=== PATIENT | male | born 1960 | race African-American/Black ===

== ENCOUNTER 2017-05-18 12:45 | Inpatient (IN) | payer OTHER ==
[2017-05-18 14:35] VITALS: BMI 21.6
--- NOTE | 2017-05-18 19:39 | HP ---
CIWA Score - CIWA Score Nausea/Vomitin-Int. Nausea w/Dry Heave Muscle Tremors: 2 Anxiety: 3 Agitation: 0-Normal Activity Paroxysmal Sweats: 3 Orientation: 0-Oriented Tacttile Disturbances: 0-None Auditory Disturbances: 0-None Visual Disturbances: 3-Moderate Sensitivity Headache: 3-Moderate CIWA-Ar Total Score: 18 Admission ROS S - [facility] Chief Complaint: "I don't feel well, I've been throwing up, I am here for detox from heroin, alcohol, cocaine. " Allergies/Adverse Reactions: Allergies Allergy/AdvReac Type Severity Reaction Status Date / Time lactose AdvReac Intermediate Vomiting Verified 05/18/17 19:10 History of Present Illness: 56 yo male with hx alcohol, cocaine, and heroin dependence is here for detox. PMHX: BPH, denies any other medical problems. Denies any past psychiatric history. Last detox [facility] 2010. Longest period of sobriety 3 years. Denies suicidal / homicidal ideation or suicide attempts . Exam Limitations: No Limitations - Ebola screening Have you traveled outside of the country in the last 21 days: No (N) Have you had contact with anyone from an Ebola affected area: No Have you been sick,other than usual withdrawal symptoms: No Do you have a fever: No - Review of Systems Constitutional: Chills, Loss of Appetite, Unintentional Wgt. Loss (20 lbs in the last three months) EENT: reports: No Symptoms Reported Respiratory: reports: No Symptoms reported Cardiac: reports: No Symptoms Reported GI: reports: Nausea, Poor Appetite, Poor Fluid Intake, Vomiting : reports: Frequency Musculoskeletal: reports: Joint Pain (reports was tx for broken left arm two months ago, reports on going shoulder pain and arm pain) Integumentary: reports: No Symptoms Reported Neuro: reports: No Symptoms reported Endocrine: reports: No Symptoms Reported Hematology: reports: No Symptoms Reported Psychiatric: reports: Orientated x3, Depressed Other Systems: Reviewed and Negative Patient History - Patient Medical History Hx Anemia: No Hx Asthma: No Hx Chronic Obstructive Pulmonary Disease (COPD): No Hx Cancer: No Hx Cardiac Disorders: No Hx Congestive Heart Failure: No Hx Hypertension: No Hx Hypercholesterolemia: No Hx Pacemaker: No HX Cerebrovascular Accident: No Hx Seizures: No Hx Dementia: No Hx Diabetes: No Hx Gastrointestinal Disorders: No Hx Liver Disease: No Hx Genitourinary Disorders: No Hx Sexually Transmitted Disorders: No Hx Renal Disease (ESRD): No Hx Thyroid Disease: No Hx Human Immunodeficiency Virus (HIV): No (last tested three weeks ago, negtive ) Hx Hepatitis C: No Hx Depression: No Hx Suicide Attempt: No Hx Bipolar Disorder: No Hx Schizophrenia: No - Patient Surgical History Past Surgical History: No Hx Neurologic Surgery: No Hx Cataract Extraction: No Hx Cardiac Surgery: No Hx Lung Surgery: No Hx Breast Surgery: No Hx Breast Biopsy: No Hx Abdominal Surgery: No Hx Appendectomy: No Hx Cholecystectomy: No Hx Genitourinary Surgery: No Hx Section: No Hx Orthopedic Surgery: No Anesthesia Reaction: No - PPD History Previous Implant?: Yes Documented Results: Negative w/o proof PPD to be Administered?: Yes - Reproductive History Patient is a Female of Child Bearing Age (11 -55 yrs old): No - Smoking Cessation Smoking history: Current every day smoker Aproximately how many cigarettes per day: 10 Hx Chewing Tobacco Use: No Initiated information on smoking cessation: Yes 'Breaking Loose' booklet given: 05/18/17 - Substance & Tx. History Hx Alcohol Use: Yes Substance Use Type: Alcohol, Cocaine, Heroin Hx Substance Use Treatment: Yes ([facility], 2011) - Substances Abused Alcohol Route: Oral Frequency: Daily Amount used: liquor- 4 pints, beer- 2 six packs Age of first use: 18 Date of Last Use: 05/18/17 Cocaine Route: Inhalation Frequency: Daily Amount used: $200 Age of first use: 24 Date of Last Use: 05/18/17 Heroin Route: Inhalation Frequency: 3-6 times per week Amount used: 1 -2 BAGS Age of first use: 24 Date of Last Use: 05/15/17 Family Disease History - Family Disease History Family Disease History: Other: Father (, homocide ), Mother (alive and well ) Admission Physical Exam [facility]HS - Vital Signs Vital Signs: Vital Signs - 24 hr 05/18/17 14:28 Temperature 97 F L Pulse Rate 74 Respiratory 20 Rate Blood Pressure 137/70 - Physical General Appearance: Yes: Disheveled, Mild Distress, Thin, Irritable, Sweating, Anxious HEENTM: Yes: Hearing grossly Normal, Normal ENT Inspection, Normocephalic, Normal Voice, OLIVERIO, Pharynx Normal, Tm's normal, Other (dry mucous membranes) Respiratory: Yes: Chest Non-Tender, Lungs Clear, Normal Breath Sounds, No Respiratory Distress, No Accessory Muscle Use Neck: Yes: No masses,lesions,Nodules, Trachea in good position Breast: Yes: Breast Exam Deferred Cardiology: Yes: Regular Rhythm, Regular Rate, S1, S2 Abdominal: Yes: Normal Bowel Sounds, Non Tender, Flat, Soft Genitourinary: Yes: Within Normal Limits Back: Yes: Normal Inspection Musculoskeletal: Yes: full range of Motion, Gait Steady, Pelvis Stable Extremities: Yes: Normal Capillary Refill, Normal Inspection, Normal Range of Motion, Non-Tender Neurological: Yes: traffic sergeant II-XII NML intact, Fully Oriented, Alert, Motor Strength 5/5, Normal Response, Depressed Affect Integumentary: Yes: Normal Color, Dry, Warm, Other (poor skin turgor) Lymphatic: Yes: Within Normal Limits - Diagnostic (1) Cocaine dependence Current Visit: Yes Status: Acute (2) Weight loss Current Visit: Yes Status: Acute (3) Alcohol dependence with withdrawal Current Visit: Yes Status: Acute (4) Heroin dependence Current Visit: Yes Status: Acute (5) Dehydration Current Visit: Yes Status: Acute (6) BPH (benign prostatic hyperplasia) Current Visit: Yes Status: Acute (7) Difficulty sleeping Current Visit: Yes Status: Acute Cleared for Admission [facility] - Detox or Rehab [facility] Level of Care: Medically Managed Detox Regimen/Protocol: Librium [facility] Breath Alcohol Content Breath Alcohol Content: 0 Urine Drug Screen - Results Drug Screen Negative: No Urine Drug Screen Results: RAMIRO-Cocaine
[2017-05-18] MEDS ORDERED: ACETAMINOPHEN 325 MG TABLET (FP) PO PRN (19:52)
[2017-05-18] MEDS ORDERED: guaiFENesin/D-METHORPHAN HB 10 ML UNIT-DOSE CUPS PO PRN (19:52)
[2017-05-18] MEDS ORDERED: IBUPROFEN 400 MG TABLET (FP) PO PRN (19:52)
[2017-05-18] MEDS ORDERED: chlordiazePOXIDE HCL 25 MG CAPSULE PO ONE (19:52)
[2017-05-18] MEDS ORDERED: MAGNESIUM CITRATE 300 ML BOTTLE PO PRN (19:52)
[2017-05-18] MEDS ORDERED: chlordiazePOXIDE HCL 25 MG CAPSULE PO PRN (19:52)
[2017-05-18] MEDS ORDERED: MAG HYDROX/AL HYDROX/SIMETH 30 ML UNIT-DOSE CUP PO PRN (19:52)
[2017-05-18] MEDS ORDERED: MAGNESIUM HYDROX 2400MG/30ML ORAL SUSPENSION 30 ML CUP PO PRN (19:52)
[2017-05-18] MEDS ORDERED: hydrOXYzine PAMOATE 50 MG CAPSULE (FP) PO PRN (19:52)
[2017-05-18] MEDS ORDERED: LOPERAMIDE HCL 2 MG CAPSULE PO PRN (19:52)
[2017-05-18] MEDS ORDERED: MENTHOL/PHENOL 1 EACH UD MM PRN (19:52)
[2017-05-18] MEDS ORDERED: P-EPHED 60MG/TRIPROLIDI 2.5MG TABLET PO PRN (19:52)
[2017-05-18] MEDS: chlordiazePOXIDE HCL 25 MG CAPSULE PO SCH (22:20)
[2017-05-18] MEDS: THIAMINE HCL 100 MG TABLET (FP) PO SCH (22:20)
[2017-05-18] MEDS: IBUPROFEN 600 MG TABLET (FP) PO PRN (22:20)
[2017-05-18 23:44] LABS: URINE APPEARANCE CLEAR; URINE BILIRUBIN NEGATIVE (NEGATIVE); URINE BLOOD 1+ (NEGATIVE); URINE COLOR YELLOW; URINE GLUCOSE (UA) NEGATIVE (NEGATIVE); URINE KETONE NEGATIVE (NEGATIVE); URINE LEUK ESTERASE NEGATIVE (NEGATIVE); URINE NITRITE NEGATIVE (NEGATIVE); URINE PROTEIN NEGATIVE (NEGATIVE)
[2017-05-18 23:49] LABS: EPI CELLS RARE /HPF (FEW); URINE BACTERIA RARE /hpf (NONE SEEN); URINE MUCUS RARE
[2017-05-19] MEDS: chlordiazePOXIDE HCL 25 MG CAPSULE PO SCH ×4 (05:34→22:09)
[2017-05-19 09:54] LABS: HEMATOCRIT 36.1 % (35.4-49); HEMOGLOBIN 11.9 GM/dL (11.7-16.9); MCH 30.3 pg (25.7-33.7); MCHC 32.8 g/dl (32.0-35.9); MEAN CELL VOLUME 92.2 fl (80-96); MEAN PLT VOLUME 7.7 fl (7.5-11.1); PLATELET COUNT 271 K/MM3 (134-434); RBC 3.92 M/mm3 (4.00-5.60); RDW 14.4 % (11.9-15.9); WHITE BLOOD COUNT 4.7 K/mm3 (4.0-10.0)
[2017-05-19] MEDS: PRENATAL VITAMINS W/ FOLIC ACID TABLET (FP) PO SCH (10:17)
[2017-05-19] MEDS: DOXAZOSIN MESYLATE 4 MG TABLET PO SCH (10:17)
[2017-05-19 10:33] LABS: CHLORIDE 106 mmol/L (98-107); SODIUM 142 mmol/L (136-145)
--- NOTE | 2017-05-19 10:33 | PN ---
[facility] CIWA - CIWA Score Nausea/Vomitin-No Nausea/No Vomiting Muscle Tremors: 4-Moderate,w/Arms Extend Anxiety: 4-Mod. Anxious/Guarded Agitation: 4-Moderately Restless Paroxysmal Sweats: 1-Minimal Palms Moist Orientation: 0-Oriented Tacttile Disturbances: 3-Moderate Itch/Numb/Burn Auditory Disturbances: 0-None Visual Disturbances: 0-None Headache: 0-None Present CIWA-Ar Total Score: 16 BHS Progress Note (SOAP) Subjective: ANXIETY,SWEATS,TREMORS,INTERMITTENT SLEEP. Objective: 05/19/17 10:31 Vital Signs Temperature 97.1 F L 05/19/17 09:24 Pulse Rate 69 05/19/17 09:24 Respiratory Rate 18 05/19/17 09:24 Blood Pressure 113/78 05/19/17 09:24 O2 Sat by Pulse Oximetry (%) Laboratory Last Values WBC 4.7 K/mm3 (4.0-10.0) 05/19/17 07:30 RBC 3.92 M/mm3 (4.00-5.60) L 05/19/17 07:30 Hgb 11.9 GM/dL (11.7-16.9) 05/19/17 07:30 Hct 36.1 % (35.4-49) 05/19/17 07:30 MCV 92.2 fl (80-96) 05/19/17 07:30 MCH 30.3 pg (25.7-33.7) 05/19/17 07:30 MCHC 32.8 g/dl (32.0-35.9) 05/19/17 07:30 RDW 14.4 % (11.9-15.9) 05/19/17 07:30 Plt Count 271 K/MM3 (134-434) 05/19/17 07:30 MPV 7.7 fl (7.5-11.1) 05/19/17 07:30 Urine Color Yellow 05/18/17 20:21 Urine Appearance Clear 05/18/17 20:21 Urine pH 6.0 (5.0-8.0) 05/18/17 20:21 Ur Specific [place] 1.015 (1.001-1.035) 05/18/17 20:21 Urine Protein Negative (NEGATIVE) 05/18/17 20:21 Urine Glucose (UA) Negative (NEGATIVE) 05/18/17 20:21 Urine Ketones Negative (NEGATIVE) 05/18/17 20:21 Urine Blood 1+ (NEGATIVE) H 05/18/17 20:21 Urine Nitrite Negative (NEGATIVE) 05/18/17 20:21 Urine Bilirubin Negative (NEGATIVE) 05/18/17 20:21 Urine Urobilinogen 2.0 mg/dL (0.2-1.0) 05/18/17 20:21 Ur Leukocyte Esterase Negative (NEGATIVE) 05/18/17 20:21 Urine WBC (Auto) 1 /hpf (3-5) 05/18/17 20:21 Urine RBC (Auto) 3 /hpf (0-3) 05/18/17 20:21 Ur Epithelial Cells Rare /HPF (FEW) 05/18/17 20:21 Urine Bacteria Rare /hpf (NONE SEEN) 05/18/17 20:21 Urine Mucus Rare 05/18/17 20:21 Assessment: 05/19/17 10:32 WITHDRAWAL SX Plan: CONTINUE DETOX
[2017-05-19 10:39] LABS: ALBUMIN 3.5 g/dl (3.4-5.0); ALK PHOS 45 U/L (45-117); ANION GAP 4 (8-16); BILIRUBIN,TOTAL 0.3 mg/dL (0.2-1.0); BLOOD UREA NITROGEN 8 mg/dL (7-18); CALCIUM 8.1 mg/dL (8.5-10.1); CO2 32 mmol/L (21-32); GLUCOSE,RANDOM 80 mg/dL (74-106); SGOT/AST 36 U/L (15-37); SGPT/ALT 42 U/L (12-78); TOT PROT 6.4 g/dl (6.4-8.2)
--- NOTE | 2017-05-19 10:52 | CONSULT ---
[facility] Psychiatric Consult - Data Date of interview: 05/19/17 Admission source: [facility] Identifying data: Readmission to [facility] for this 56 y/o AA male seeking detox treatment on for alcohol,heroin and cocaine dependence.Patient is in a common-law relationship,father of one,homeless (group home),unemployed and supported on Public Assistance. Substance Abuse History: Confirmed by the patient.Mr Cruz admits to continuous use of crack,alcohol and sporadic exposure to heroin.See details in current [facility] report.Smoking history: Current every day smoker. Aproximately how many cigarettes per day: 10. Hx Chewing Tobacco Use: No. Initiated information on smoking cessation: Yes. 'Breaking Loose' booklet given: . - Substance & Tx. History. Hx Alcohol Use: Yes. Substance Use Type: Alcohol, Cocaine, Heroin. Hx Substance Use Treatment: Yes ([facility], 2011). - Substances Abused. Alcohol. Route: Oral. Frequency: Daily. Amount used: liquor- 4 pints, beer- 2 six packs. Age of first use: 18. Date of Last Use: . Cocaine. Route: Inhalation. Frequency: Daily. Amount used: $200. Age of first use: 24. Date of Last Use: 05/18/17. Heroin. Route: Inhalation. Frequency: 3-6 times per week. Amount used: 1 -2 BAGS. Age of first use: 24. Date of Last Use: 05/15/17 Medical History: Benign prostatic hypertrophy and chronic shoulder pain (left). Psychiatric History: Patient reports a history of one psychiatric hospitalization in 2010.Mr Cruz endorses the diagnosis of Schizophrenia.Prescribed risperdal and cogentin (doses not recalled).Patient states that he gets his psychiatric OPD care at the [facility] in [facility].Also reports sub-optimal adherence to medications and clinic appointments.Last took risperdal two weeks ago (self-report).Patient denies history of suicide attempts. Physical/Sexual Abuse/Trauma History: Patient denies. Additional Comment: Urine Drug Screen Results: RAMIRO-Cocaine.Noted. Mental Status Exam - Mental Status Exam Alert and Oriented to: Time, Place, Person Cognitive Function: Good Patient Appearance: Disheveled Mood: Withdrawn, Hopeful Affect: Appropriate, Normal Range Patient Behavior: Fatigued, Cooperative Speech Pattern: Clear, Appropriate Voice Loudness: Normal Thought Process: Intact, Goal Oriented Thought Disorder: Not Present Hallucinations: Denies Suicidal Ideation: Denies Homicidal Ideation: Denies Insight/Judgement: Poor Sleep: Poorly, Difficulty falling asleep (requests ambien) Appetite: Good Muscle strength/Tone: Normal Gait/Station: Normal Psychiatric Findings - Problem List ([place] 1, 2,3) (1) Schizophrenia Status: Chronic Comment: Self-report.On medications (confirmed at [facility] # [id number]) .Patient is affiliated with [facility] for psychiatric OPD care. (2) Alcohol dependence Status: Acute (3) Cocaine dependence Status: Acute Qualifiers: (4) Nicotine dependence Status: Acute Qualifiers: (5) Insomnia Status: Acute - Initial Treatment Plan Initial Treatment Plan: Psychoeducation.Sleep hygiene.Detoxification treatment in progress.Ambien 5 mg po hs prn + risperdal 2 mg po bid + cogentin 1 mg po bid.Side effects/benefits are discussed with the patient : dystonias,dyskinesias ,galactorrhea,gynecomastia,sexual impotence (risperdal),dry mouth,blurred vision ,urinary hesitancy,constipation (cogentin) and parasomnias (ambien).Mr Cruz gave his consent (verbal) for this careplan + his authorization ( verbal) to contact his pharmacist at [facility] # [id number].Contact made with pharmacist at [phone] : refills for risperdal 2 mg po bid + cogentin 1 mg po bid were picked up on 05/14/17.Patient is a reliable historian.NO scripts required at discharge from [address] [place] [address].Daily monitoring of clinical course.
--- NOTE | 2017-05-19 11:02 | EKG ---
Test Reason : Blood Pressure : / mmHG Vent. Rate : 063 BPM Atrial Rate : 063 BPM P-R Int : 152 ms QRS Dur : 078 ms QT Int : 436 ms P-R-T Axes : 070 069 050 degrees QTc Int : 446 ms NORMAL SINUS RHYTHM NONSPECIFIC ST ABNORMALITY ABNORMAL ECG NO PREVIOUS ECGS AVAILABLE Confirmed by EFRAÍN VALENTIN MD ([id number]) on 05/19/2017 11:01:41 AM Referred By: Confirmed By:EFRAÍN VALENTIN MD
[2017-05-19] MEDS ORDERED: NICOTINE POLACRILEX 2 MG GUM BUC PRN (17:29)
[2017-05-19] MEDS: IBUPROFEN 600 MG TABLET (FP) PO PRN (19:25)
[2017-05-19] MEDS: THIAMINE HCL 100 MG TABLET (FP) PO SCH (22:09)
[2017-05-19] MEDS: BENZTROPINE MESYLATE 1 MG TABLET (FP) PO SCH (22:09)
[2017-05-19] MEDS: risperiDONE 2 MG TABLET PO SCH (22:10)
[2017-05-20] MEDS: chlordiazePOXIDE HCL 25 MG CAPSULE PO SCH ×3 (05:34→17:26)
[2017-05-20] MEDS: DOXAZOSIN MESYLATE 4 MG TABLET PO SCH (10:01)
[2017-05-20] MEDS: BENZTROPINE MESYLATE 1 MG TABLET (FP) PO SCH ×2 (10:02→22:16)
[2017-05-20] MEDS: PRENATAL VITAMINS W/ FOLIC ACID TABLET (FP) PO SCH (10:02)
[2017-05-20] MEDS: risperiDONE 2 MG TABLET PO SCH ×2 (10:02→22:15)
--- NOTE | 2017-05-20 10:19 | PN ---
[facility] CIWA - CIWA Score Nausea/Vomitin-No Nausea/No Vomiting Muscle Tremors: 4-Moderate,w/Arms Extend Anxiety: 4-Mod. Anxious/Guarded Agitation: 4-Moderately Restless Paroxysmal Sweats: 1-Minimal Palms Moist Orientation: 0-Oriented Tacttile Disturbances: 3-Moderate Itch/Numb/Burn Auditory Disturbances: 0-None Visual Disturbances: 0-None Headache: 0-None Present CIWA-Ar Total Score: 16 BHS Progress Note (SOAP) Subjective: ANXIETY,SWEATS/CHILLS,TREMORS,FATIGUE. Objective: 05/20/17 10:18 Vital Signs 05/20/17 05/20/17 05/20/17 03:30 06:10 09:25 Temperature 98.2 F 97.6 F Pulse Rate 86 78 Respiratory 18 18 18 Rate Blood Pressure 117/74 112/72 Laboratory Last Values WBC 4.7 K/mm3 (4.0-10.0) 05/19/17 07:30 RBC 3.92 M/mm3 (4.00-5.60) L 05/19/17 07:30 Hgb 11.9 GM/dL (11.7-16.9) 05/19/17 07:30 Hct 36.1 % (35.4-49) 05/19/17 07:30 MCV 92.2 fl (80-96) 05/19/17 07:30 MCH 30.3 pg (25.7-33.7) 05/19/17 07:30 MCHC 32.8 g/dl (32.0-35.9) 05/19/17 07:30 RDW 14.4 % (11.9-15.9) 05/19/17 07:30 Plt Count 271 K/MM3 (134-434) 05/19/17 07:30 MPV 7.7 fl (7.5-11.1) 05/19/17 07:30 Sodium 142 mmol/L (136-145) 05/19/17 07:30 Potassium 4.0 mmol/L (3.5-5.1) 05/19/17 07:30 Chloride 106 mmol/L (98-107) 05/19/17 07:30 Carbon Dioxide 32 mmol/L (21-32) 05/19/17 07:30 Anion Gap 4 (8-16) L 05/19/17 07:30 BUN 8 mg/dL (7-18) 05/19/17 07:30 Creatinine 1.0 mg/dL (0.7-1.3) 05/19/17 07:30 Creat Clearance w eGFR > 60 (>60) 05/19/17 07:30 Random Glucose 80 mg/dL (74-106) 05/19/17 07:30 Calcium 8.1 mg/dL (8.5-10.1) L 05/19/17 07:30 Total Bilirubin 0.3 mg/dL (0.2-1.0) 05/19/17 07:30 AST 36 U/L (15-37) 05/19/17 07:30 ALT 42 U/L (12-78) 05/19/17 07:30 Alkaline Phosphatase 45 U/L (45-117) 05/19/17 07:30 Total Protein 6.4 g/dl (6.4-8.2) 05/19/17 07:30 Albumin 3.5 g/dl (3.4-5.0) 05/19/17 07:30 Urine Color Yellow 05/18/17 20:21 Urine Appearance Clear 05/18/17 20:21 Urine pH 6.0 (5.0-8.0) 05/18/17 20:21 Ur Specific [place] 1.015 (1.001-1.035) 05/18/17 20:21 Urine Protein Negative (NEGATIVE) 05/18/17 20:21 Urine Glucose (UA) Negative (NEGATIVE) 05/18/17 20:21 Urine Ketones Negative (NEGATIVE) 05/18/17 20:21 Urine Blood 1+ (NEGATIVE) H 05/18/17 20:21 Urine Nitrite Negative (NEGATIVE) 05/18/17 20:21 Urine Bilirubin Negative (NEGATIVE) 05/18/17 20:21 Urine Urobilinogen 2.0 mg/dL (0.2-1.0) 05/18/17 20:21 Ur Leukocyte Esterase Negative (NEGATIVE) 05/18/17 20:21 Urine WBC (Auto) 1 /hpf (3-5) 05/18/17 20:21 Urine RBC (Auto) 3 /hpf (0-3) 05/18/17 20:21 Ur Epithelial Cells Rare /HPF (FEW) 05/18/17 20:21 Urine Bacteria Rare /hpf (NONE SEEN) 05/18/17 20:21 Urine Mucus Rare 05/18/17 20:21 RPR Titer Nonreactive (NONREACTIVE) 05/19/17 07:30 Hepatitis C Antibody <0.1 s/co ratio (0.0-0.9) 05/18/17 07:30 Assessment: 05/20/17 10:19 WITHDRAWAL SX Plan: CONTINUE DETOX
[2017-05-20] MEDS: THIAMINE HCL 100 MG TABLET (FP) PO SCH (22:15)
[2017-05-20] MEDS: chlordiazePOXIDE 5 MG CAPSULE PO SCH (22:15)
[2017-05-20] MEDS: IBUPROFEN 600 MG TABLET (FP) PO PRN (23:32)
[2017-05-21] MEDS: chlordiazePOXIDE 5 MG CAPSULE PO SCH ×3 (05:09→17:17)
[2017-05-21] MEDS: BENZTROPINE MESYLATE 1 MG TABLET (FP) PO SCH ×2 (10:11→22:25)
[2017-05-21] MEDS: risperiDONE 2 MG TABLET PO SCH ×2 (10:11→22:26)
[2017-05-21] MEDS: PRENATAL VITAMINS W/ FOLIC ACID TABLET (FP) PO SCH (10:11)
[2017-05-21] MEDS: DOXAZOSIN MESYLATE 4 MG TABLET PO SCH (10:12)
--- NOTE | 2017-05-21 11:14 | PN ---
S Progress Note (SOAP) Subjective: SLIGHT ANXIETY, FATIGUE. Objective: 05/21/17 11:13 Vital Signs 05/21/17 05/21/17 05/21/17 03:30 06:18 09:29 Temperature 98.4 F 98.3 F Pulse Rate 75 88 Respiratory 18 18 12 Rate Blood Pressure 109/63 128/71 Laboratory Last Values WBC 4.7 K/mm3 (4.0-10.0) 05/19/17 07:30 RBC 3.92 M/mm3 (4.00-5.60) L 05/19/17 07:30 Hgb 11.9 GM/dL (11.7-16.9) 05/19/17 07:30 Hct 36.1 % (35.4-49) 05/19/17 07:30 MCV 92.2 fl (80-96) 05/19/17 07:30 MCH 30.3 pg (25.7-33.7) 05/19/17 07:30 MCHC 32.8 g/dl (32.0-35.9) 05/19/17 07:30 RDW 14.4 % (11.9-15.9) 05/19/17 07:30 Plt Count 271 K/MM3 (134-434) 05/19/17 07:30 MPV 7.7 fl (7.5-11.1) 05/19/17 07:30 Sodium 142 mmol/L (136-145) 05/19/17 07:30 Potassium 4.0 mmol/L (3.5-5.1) 05/19/17 07:30 Chloride 106 mmol/L (98-107) 05/19/17 07:30 Carbon Dioxide 32 mmol/L (21-32) 05/19/17 07:30 Anion Gap 4 (8-16) L 05/19/17 07:30 BUN 8 mg/dL (7-18) 05/19/17 07:30 Creatinine 1.0 mg/dL (0.7-1.3) 05/19/17 07:30 Creat Clearance w eGFR > 60 (>60) 05/19/17 07:30 Random Glucose 80 mg/dL (74-106) 05/19/17 07:30 Calcium 8.1 mg/dL (8.5-10.1) L 05/19/17 07:30 Total Bilirubin 0.3 mg/dL (0.2-1.0) 05/19/17 07:30 AST 36 U/L (15-37) 05/19/17 07:30 ALT 42 U/L (12-78) 05/19/17 07:30 Alkaline Phosphatase 45 U/L (45-117) 05/19/17 07:30 Total Protein 6.4 g/dl (6.4-8.2) 05/19/17 07:30 Albumin 3.5 g/dl (3.4-5.0) 05/19/17 07:30 Urine Color Yellow 05/18/17 20:21 Urine Appearance Clear 05/18/17 20:21 Urine pH 6.0 (5.0-8.0) 05/18/17 20:21 Ur Specific [place] 1.015 (1.001-1.035) 05/18/17 20:21 Urine Protein Negative (NEGATIVE) 05/18/17 20:21 Urine Glucose (UA) Negative (NEGATIVE) 05/18/17 20:21 Urine Ketones Negative (NEGATIVE) 05/18/17 20:21 Urine Blood 1+ (NEGATIVE) H 05/18/17 20:21 Urine Nitrite Negative (NEGATIVE) 05/18/17 20:21 Urine Bilirubin Negative (NEGATIVE) 05/18/17 20:21 Urine Urobilinogen 2.0 mg/dL (0.2-1.0) 05/18/17 20:21 Ur Leukocyte Esterase Negative (NEGATIVE) 05/18/17 20:21 Urine WBC (Auto) 1 /hpf (3-5) 05/18/17 20:21 Urine RBC (Auto) 3 /hpf (0-3) 05/18/17 20:21 Ur Epithelial Cells Rare /HPF (FEW) 05/18/17 20:21 Urine Bacteria Rare /hpf (NONE SEEN) 05/18/17 20:21 Urine Mucus Rare 05/18/17 20:21 RPR Titer Nonreactive (NONREACTIVE) 05/19/17 07:30 Hepatitis C Antibody <0.1 s/co ratio (0.0-0.9) 05/18/17 07:30 Assessment: 05/21/17 11:14 WITHDRAWAL SX Plan: CONTINUE DETOX
[2017-05-21] MEDS: IBUPROFEN 600 MG TABLET (FP) PO PRN (18:28)
--- NOTE | 2017-05-21 19:05 | PN ---
[facility] Progress Note Note: Patient reports intermittent discomfort (dull aching quality) X last 1-2 days. Patient points to Right side of abdomen, ribcage, and lower chest as primary areas affected by discomfort. Patient denies any sternal or left-sided chest or abdominal pain. Patient denies history of any similar experience and he denies any known history of Cardiac, Stomach, Pancreas, Liver, or Gallbladder disease. Patient denies dizziness and SOB. Patient denies nausea / vomiting, sensation of heartburn, or diarrhea. Patient reports mild straining when having a bowel movement over last few days. Lung sounds auscultated clear and equal bilaterally. S1, S1 auscultated. Bowel Sounds Normoactive in all four quadrants. Abdomen soft, no tenderness upon palpation, no distension noted. Patient able to ambulate on unit unassisted and without difficulty. STAT ECG ordered, results noted. VS stable. Patient given MOM earlier and reports mild effect. Patient to be given a dose of Mylanta. Patient advised to not lie flat for 2-3 hours after eating / drinking and to notify Nursing staff immediately should discomfort become more severe or frequent at any time. Patient verbalized understanding of instructions. Will Continue to monitor. Little Mcknight NP
[2017-05-21] MEDS: chlordiazePOXIDE HCL 10 MG CAPSULE PO SCH (22:25)
[2017-05-21] MEDS: THIAMINE HCL 100 MG TABLET (FP) PO SCH (22:26)
[2017-05-22] MEDS: chlordiazePOXIDE HCL 10 MG CAPSULE PO SCH ×3 (05:17→17:31)
[2017-05-22] MEDS: risperiDONE 2 MG TABLET PO SCH ×2 (10:15→23:05)
[2017-05-22] MEDS: PRENATAL VITAMINS W/ FOLIC ACID TABLET (FP) PO SCH (10:15)
[2017-05-22] MEDS: BENZTROPINE MESYLATE 1 MG TABLET (FP) PO SCH ×2 (10:15→23:05)
[2017-05-22] MEDS: DOXAZOSIN MESYLATE 4 MG TABLET PO SCH (10:16)
--- NOTE | 2017-05-22 12:20 | EKG ---
Test Reason : Blood Pressure : / mmHG Vent. Rate : 090 BPM Atrial Rate : 090 BPM P-R Int : 146 ms QRS Dur : 066 ms QT Int : 366 ms P-R-T Axes : 061 073 037 degrees QTc Int : 447 ms NORMAL SINUS RHYTHM NONSPECIFIC ST ABNORMALITY ABNORMAL ECG WHEN COMPARED WITH ECG OF 18-MAY-2017 21:49, T WAVE INVERSION NO LONGER EVIDENT IN ANTERIOR LEADS Confirmed by WALT GRIFFITH, ALEE ([id number]) on 05/22/2017 12:20:24 PM Referred By: Confirmed By:ALEE GODOY MD
--- NOTE | 2017-05-22 14:36 | PN ---
[facility] Progress Note (SOAP) Subjective: Anxious, Interrupted Sleep. Objective: PT. A & O X 3, OBSERVED AMBULATING ON UNIT. NO ACUTE DISTRESS. PATIENT REPORTS THAT ABDOMINAL DISCOMFORT THAT HE WAS REPORTING LAST NIGHT HAS SINCE RESOLVED COMPLETELY. 05/22/17 14:34 Vital Signs Temperature 98.7 F 05/22/17 14:04 Pulse Rate 97 H 05/22/17 14:04 Respiratory Rate 18 05/22/17 14:04 Blood Pressure 98/60 05/22/17 14:04 O2 Sat by Pulse Oximetry (%) Laboratory Tests 05/18/17 05/18/17 05/19/17 07:30 20:21 07:30 WBC 4.7 RBC 3.92 L Hgb 11.9 Hct 36.1 MCV 92.2 MCH 30.3 MCHC 32.8 RDW 14.4 Plt Count 271 MPV 7.7 Sodium Potassium Chloride Carbon Dioxide Anion Gap BUN Creatinine Creat Clearance w eGFR Random Glucose Calcium Total Bilirubin AST ALT Alkaline Phosphatase Total Protein Albumin Urine Color Yellow Urine Appearance Clear Urine pH 6.0 Ur Specific [place] 1.015 Urine Protein Negative Urine Glucose (UA) Negative Urine Ketones Negative Urine Blood 1+ H Urine Nitrite Negative Urine Bilirubin Negative Urine Urobilinogen 2.0 Ur Leukocyte Esterase Negative Urine WBC (Auto) 1 Urine RBC (Auto) 3 Ur Epithelial Cells Rare Urine Bacteria Rare Urine Mucus Rare RPR Titer Hepatitis C Antibody <0.1 05/19/17 05/19/17 07:30 07:30 WBC RBC Hgb Hct MCV MCH MCHC RDW Plt Count MPV Sodium 142 Potassium 4.0 Chloride 106 Carbon Dioxide 32 Anion Gap 4 L BUN 8 Creatinine 1.0 Creat Clearance w eGFR > 60 Random Glucose 80 Calcium 8.1 L Total Bilirubin 0.3 AST 36 ALT 42 Alkaline Phosphatase 45 Total Protein 6.4 Albumin 3.5 Urine Color Urine Appearance Urine pH Ur Specific [place] Urine Protein Urine Glucose (UA) Urine Ketones Urine Blood Urine Nitrite Urine Bilirubin Urine Urobilinogen Ur Leukocyte Esterase Urine WBC (Auto) Urine RBC (Auto) Ur Epithelial Cells Urine Bacteria Urine Mucus RPR Titer Nonreactive Hepatitis C Antibody LABS NOTED. Assessment: 05/22/17 14:35 WITHDRAWAL SYMPTOMS. Plan: CONTINUE DETOX. INCREASE DAILY PO FLUID IN TAKE.
[2017-05-22] MEDS: THIAMINE HCL 100 MG TABLET (FP) PO SCH (23:05)
[2017-05-23 06:09] VITALS: BP 102/65; PULSE 85; TEMP 98
[2017-05-23] MEDS: BENZTROPINE MESYLATE 1 MG TABLET (FP) PO SCH (09:29)
[2017-05-23] MEDS: risperiDONE 2 MG TABLET PO SCH (09:30)
[2017-05-23] MEDS: PRENATAL VITAMINS W/ FOLIC ACID TABLET (FP) PO SCH (09:30)
[2017-05-23] MEDS: DOXAZOSIN MESYLATE 4 MG TABLET PO SCH (09:31)
--- NOTE | 2017-05-23 10:43 | DS ---
[facility] Detox Discharge Summary Admission Date: 05/18/17 Discharge Date: 05/23/17 - History Present History: Alcohol Dependence, Cocaine Dependence, Opioid Dependence Additional Comments: follow up with after care program as arrangement Pertinent Past History: bph - Physical Exam Results Vital Signs: Vital Signs Temperature 98 F 05/23/17 06:08 Pulse Rate 85 05/23/17 06:08 Respiratory Rate 18 05/23/17 06:08 Blood Pressure 102/65 05/23/17 06:08 O2 Sat by Pulse Oximetry (%) Pertinent Admission Physical Exam Findings: withdrawal symptom - Treatment Hospital Course: Detox Protocol Followed, Detoxed Safely, Responded well, Discharged Condition Good, Rehab Referral Accepted Patient has Accepted a Rehab Referral to: [facility] - Medication Discharge Medications: Ambulatory Orders NK [No Known Home Medication] 05/18/17 - Diagnosis (1) Alcohol dependence with withdrawal Current Visit: Yes Status: Acute Qualifiers: Complication of substance-induced condition: uncomplicated Qualified Code(s ): F10.230 - Alcohol dependence with withdrawal, uncomplicated (2) Cocaine dependence Current Visit: Yes Status: Acute Qualifiers: Substance use status: uncomplicated Qualified Code(s): F14.20 - Cocaine dependence, uncomplicated (3) Insomnia Current Visit: Yes Status: Acute (4) Nicotine dependence Current Visit: Yes Status: Acute Qualifiers: Nicotine product type: cigarettes Substance use status: uncomplicated Qualified Code(s): F17.210 - Nicotine dependence, cigarettes, uncomplicated (5) BPH (benign prostatic hyperplasia) Current Visit: Yes Status: Chronic Qualifiers: Lower urinary tract symptom presence: unspecified whether lower urinary tract symptoms present Qualified Code(s): N40.0 - Benign prostatic hyperplasia without lower urinary tract symptoms (6) Schizophrenia Current Visit: Yes Status: Chronic (7) Heroin abuse Current Visit: Yes Status: Acute - AMA Did Patient Leave Against Medical Advice: No
== END 2017-05-23 11:09 | disposition other institution (70) | DRG 773 ==
LOC: YASAS 12:45 → Y3N 19:15
PROVIDERS: ADMIT Internal Medicine; ATTEND Internal Medicine
PROC: HZ2ZZZZ Detoxification Services for Substance Abuse Treatment (ICD-10-PCS; principal; 2017-05-18)
DX: F10.230 Alcohol dependence with withdrawal, uncomplicated (principal); F14.20 Cocaine dependence, uncomplicated; F11.10 Opioid abuse, uncomplicated; F17.210 Nicotine dependence, cigarettes, uncomplicated; F25.9 Schizoaffective disorder, unspecified; F20.9 Schizophrenia, unspecified; G47.00 Insomnia, unspecified; N40.0 Benign prostatic hyperplasia without lower urinary tract symptoms; E86.0 Dehydration; R10.9 Unspecified abdominal pain; Z91.011 Allergy to milk products; Z87.898 Personal history of other specified conditions; Z59.0 Homelessness
CPT/HCPCS: 36415; 80053; 81003; 81015; 85027; 86593; 86803; 93005; 93010

== ENCOUNTER 2017-05-23 11:34 | Inpatient (IN) | payer OTHER ==
[2017-05-23] MEDS ORDERED: ACETAMINOPHEN 325 MG TABLET (FP) PO PRN (14:59)
[2017-05-23] MEDS ORDERED: MENTHOL/PHENOL 1 EACH UD MM PRN (14:59)
[2017-05-23] MEDS ORDERED: MAG HYDROX/AL HYDROX/SIMETH 30 ML UNIT-DOSE CUP PO PRN (14:59)
[2017-05-23] MEDS ORDERED: guaiFENesin/D-METHORPHAN HB 10 ML UNIT-DOSE CUPS PO PRN (14:59)
[2017-05-23] MEDS ORDERED: MAGNESIUM CITRATE 300 ML BOTTLE PO PRN (14:59)
[2017-05-23] MEDS ORDERED: hydrOXYzine PAMOATE 50 MG CAPSULE (FP) PO PRN (14:59)
[2017-05-23] MEDS ORDERED: MAGNESIUM HYDROX 2400MG/30ML ORAL SUSPENSION 30 ML CUP PO PRN (14:59)
[2017-05-23] MEDS ORDERED: LOPERAMIDE HCL 2 MG CAPSULE PO PRN (14:59)
[2017-05-23] MEDS ORDERED: P-EPHED 60MG/TRIPROLIDI 2.5MG TABLET PO PRN (14:59)
--- NOTE | 2017-05-23 14:59 | HP ---
[facility] Rehab Assess/Revision - Admission History Admitted to Rehab from: [facility] Date of Admission to Rehab: 05/23/17 - Findings Detox History & Physical reviewed: Yes Concur with findings: Yes Comments/Additional Findings: FOR REHAB PROTOCOL Inpatient Rehab Admission - Initial Determination Are CD services needed?: Yes Free of communicable disease: Yes Not in need of hospitalization: Yes - Rehab Admission Criteria Previous failed treatment: Yes Poor recovery environment: Yes Comorbidities: Yes Lacks judgement: No Patient is meeting Inpatient Rehab admission criteria:: Yes
[2017-05-23] MEDS: THIAMINE HCL 100 MG TABLET (FP) PO SCH (22:27)
[2017-05-24] MEDS: IBUPROFEN 400 MG TABLET (FP) PO PRN (04:54)
[2017-05-24] MEDS: PRENATAL VITAMINS W/ FOLIC ACID TABLET (FP) PO SCH (10:05)
[2017-05-24] MEDS: DOXAZOSIN MESYLATE 4 MG TABLET PO SCH (10:12)
[2017-05-24] MEDS ORDERED: COLLOIDAL OATMEAL 1 BAR EACH TP PRN (14:24)
--- NOTE | 2017-05-24 14:27 | PN ---
BHS Progress Note (SOAP) Subjective: c/o contact dermatitits wants to use his own soap he brought inow in security Objective: 05/24/17 14:25 Vital Signs - 24 hr 05/23/17 05/24/17 05/24/17 23:01 00:30 03:30 Temperature Pulse Rate 94 H Respiratory 16 16 Rate Blood Pressure 103/59 05/24/17 07:09 Temperature 98.5 F Pulse Rate 89 Respiratory 18 Rate Blood Pressure 107/65 labs reveiwed Assessment: 05/24/17 14:26 contat dermatitis, reviewd, las w patient, ordred aveeno soap or patietb can use hisown from downstairs if unopened
[2017-05-24] MEDS: THIAMINE HCL 100 MG TABLET (FP) PO SCH (21:28)
[2017-05-25] MEDS: IBUPROFEN 400 MG TABLET (FP) PO PRN (04:19)
[2017-05-25] MEDS: PRENATAL VITAMINS W/ FOLIC ACID TABLET (FP) PO SCH (10:22)
[2017-05-25] MEDS: DOXAZOSIN MESYLATE 4 MG TABLET PO SCH (10:22)
[2017-05-25] MEDS ORDERED: LIDOCAINE 5% TOPICAL PATCH TP ONE (11:48)
--- NOTE | 2017-05-25 11:53 | PN ---
S Progress Note (SOAP) Subjective: pain to left shoulder but manageable. I had a broken shoulder two months ago with a cast then placed. but I removed the cast so I know the shoulder never healed properly. Objective: 05/25/17 11:50 Vital Signs Temperature 98.4 F 05/25/17 06:53 Pulse Rate 80 05/25/17 10:00 Respiratory Rate 18 05/25/17 10:00 Blood Pressure 109/64 05/25/17 10:00 O2 Sat by Pulse Oximetry (%) aaox3 ambulating no acute distress Assessment: 05/25/17 11:52 pt is able to shrug shoulders, able to raise arm but unable to place arm behind his head. Plan: motrin 600mg prn tylenol 650mg prn lidocaine patch daily shoulder x-ray ordered for evaluation
[2017-05-25] MEDS: IBUPROFEN 600 MG TABLET (FP) PO PRN (12:22)
--- NOTE | 2017-05-25 14:46 | HP ---
Psychiatrist Admission - Data Date of interview: 05/25/17 Admission source: Transfer from [address] [place] [address] Identifying data: First admission to [facility] for this 56 y/o AA male seeking rehabilitation treatment for alcohol,heroin and cocaine dependence.Completed detox care on [address] [place] [address].Patient is in a common-law relationship,father of one,homeless (resides in jail),unemployed and supported on Public Assistance. Medical History: Benign prostatic hypertrophy and chronic shoulder pain (left). Psychiatric History: History of one psychiatric hospitalization (2010).Mr Cruz endorses the diagnosis of Schizophrenia.Prescribed risperdal and cogentin (doses not recalled).Patient states that he gets his psychiatric OPD care at the [facility] in [facility].Also reports sub-optimal adherence to medications and clinic appointments.Last took risperdal two weeks prior to his [facility] visit on 05/19/17.Mr Cruz denies history of suicide attempts. Physical/Sexual Abuse/Trauma History: Patient denies. Additional Comment: Section of [facility] report on current addictions was reviewed and attached to this document.Discussed with the patient.Details re-confirmed. Urine Drug Screen Results: RAMIRO-Cocaine (noted on admission). Smoking history: Current every day smoker. Aproximately how many cigarettes per day: 10. Hx Chewing Tobacco Use: No. Initiated information on smoking cessation: Yes. ' Breaking Loose' booklet given: 05/18/17. - Substance & Tx. History. Hx Alcohol Use: Yes. Substance Use Type: Alcohol, Cocaine, Heroin. Hx Substance Use Treatment: Yes ([facility], 2011). - Substances Abused. Alcohol. Route: Oral. Frequency: Daily. Amount used: liquor- 4 pints, beer- 2 six packs. Age of first use: 18. Date of Last Use: 05/18/17. Cocaine. Route: Inhalation. Frequency: Daily. Amount used: $200. Age of first use: 24. Date of Last Use : 05/18/17. Heroin. Route: Inhalation. Frequency: 3-6 times per week. Amount used: 1 -2 BAGS. Age of first use: 24. Date of Last Use: 05/15/17 Vital Signs: Vital Signs - 24 hr 05/25/17 05/25/17 05/25/17 00:30 03:30 06:53 Temperature 98.4 F Pulse Rate 93 H Respiratory 18 18 18 Rate Blood Pressure 112/66 05/25/17 10:00 Temperature Pulse Rate 80 Respiratory 18 Rate Blood Pressure 109/64 Allergies/Adverse Reactions: Allergies Allergy/AdvReac Type Severity Reaction Status Date / Time lactose AdvReac Intermediate Vomiting Verified 05/18/17 19:10 - Substance Abuse/Tx History Hx Alcohol Use: Yes Hx Substance Use: Yes (smokes occasionally : only when " high " on drugs) Substance Use Type: Alcohol (daily consumption of vodka - 04/09 every two days.Last use on 05/18/17.), Cocaine (started using at age 24.Spends 100 dollars/ day as an average.last use was on 05/18/17), Heroin (admits to sporadic use of heroin via snorting;toxicology screen is negative on admission) Hx Substance Use Treatment: Yes Mental Status Exam - Mental Status Exam Alert and Oriented to: Time, Place, Person Cognitive Function: Good Patient Appearance: Unkempt, Disheveled Mood: Hopeful, Euthymic Affect: Appropriate, Normal Range Patient Behavior: Appropriate, Cooperative (friendly on approach) Speech Pattern: Clear Voice Loudness: Normal Thought Process: Goal Oriented Thought Disorder: Not Present Hallucinations: Denies Suicidal Ideation: Denies Homicidal Ideation: Denies Insight/Judgement: Fair (much improved) Sleep: Well Appetite: Good Muscle strength/Tone: Normal Gait/Station: Normal Psychiatric Findings - Problem List ([place] 1, 2,3) (1) Schizophrenia Current Visit: Yes Status: Chronic Comment: Self-report.On medications ( confirmed at [facility] # [id number]).Patient is affiliated with [facility] for psychiatric OPD care. (2) Cocaine dependence Current Visit: Yes Status: Acute Qualifiers: (3) Alcohol dependence Current Visit: Yes Status: Acute (4) Heroin dependence Current Visit: No Status: Chronic (5) Nicotine dependence Current Visit: Yes Status: Acute Qualifiers: (6) Insomnia Current Visit: Yes Status: Acute - Initial Treatment Plan Initial Treatment Plan: Records reviewed.Psychoeducation and support provided in this session.Patient is advised to follow unit rules/regulations and attend daily therapy groups,community meetings and recreational activities.Encouraged to maintain adherence to medications.Mr Cruz agrees to resume risperdal 2 mg po bid but he declines to take cogentin due to intolerable side effects ( anticholinergic phenomena).Informed consent given by patient.Side effects/ benefits of risperdal were revisited with the patient in this session.Reminded of risk of extrapyramidal syndrome,dyskinesias,dystonias,galactorrhea, gynecomastia,sexual impotence and cardiovascular adverse events.Daily monitoring of clinical course.
[2017-05-25] MEDS: THIAMINE HCL 100 MG TABLET (FP) PO SCH (21:35)
[2017-05-25] MEDS: risperiDONE 2 MG TABLET PO SCH (21:36)
[2017-05-25] MEDS: LIDOCAINE PATCH REMOVAL MC SCH (21:36)
[2017-05-26] MEDS: PRENATAL VITAMINS W/ FOLIC ACID TABLET (FP) PO SCH (09:36)
[2017-05-26] MEDS: risperiDONE 2 MG TABLET PO SCH ×2 (09:36→21:46)
[2017-05-26] MEDS: LIDOCAINE 5% TOPICAL PATCH TP SCH (09:37)
[2017-05-26] MEDS: DOXAZOSIN MESYLATE 4 MG TABLET PO SCH (09:37)
[2017-05-26] MEDS: THIAMINE HCL 100 MG TABLET (FP) PO SCH (21:46)
[2017-05-26] MEDS: LIDOCAINE PATCH REMOVAL MC SCH (21:50)
[2017-05-27] MEDS: PRENATAL VITAMINS W/ FOLIC ACID TABLET (FP) PO SCH (10:16)
[2017-05-27] MEDS: risperiDONE 2 MG TABLET PO SCH ×2 (10:17→21:37)
[2017-05-27] MEDS: LIDOCAINE 5% TOPICAL PATCH TP SCH (10:17)
[2017-05-27] MEDS: DOXAZOSIN MESYLATE 4 MG TABLET PO SCH (10:18)
[2017-05-27] MEDS: THIAMINE HCL 100 MG TABLET (FP) PO SCH (21:37)
[2017-05-27] MEDS: LIDOCAINE PATCH REMOVAL MC SCH (21:37)
[2017-05-28] MEDS: IBUPROFEN 600 MG TABLET (FP) PO PRN ×2 (00:45→10:43)
[2017-05-28] MEDS: DOXAZOSIN MESYLATE 4 MG TABLET PO SCH (10:17)
[2017-05-28] MEDS: risperiDONE 2 MG TABLET PO SCH ×2 (10:17→21:11)
[2017-05-28] MEDS: PRENATAL VITAMINS W/ FOLIC ACID TABLET (FP) PO SCH (10:17)
[2017-05-28] MEDS: LIDOCAINE 5% TOPICAL PATCH TP SCH (10:18)
[2017-05-28] MEDS: THIAMINE HCL 100 MG TABLET (FP) PO SCH (21:11)
[2017-05-28] MEDS: LIDOCAINE PATCH REMOVAL MC SCH (21:11)
[2017-05-29] MEDS: IBUPROFEN 600 MG TABLET (FP) PO PRN ×2 (03:34→14:32)
[2017-05-29] MEDS: PRENATAL VITAMINS W/ FOLIC ACID TABLET (FP) PO SCH (10:15)
[2017-05-29] MEDS: LIDOCAINE 5% TOPICAL PATCH TP SCH (10:15)
[2017-05-29] MEDS: DOXAZOSIN MESYLATE 4 MG TABLET PO SCH (10:15)
[2017-05-29] MEDS: risperiDONE 2 MG TABLET PO SCH ×2 (10:15→21:48)
[2017-05-29] MEDS: THIAMINE HCL 100 MG TABLET (FP) PO SCH (21:48)
[2017-05-29] MEDS: LIDOCAINE PATCH REMOVAL MC SCH (22:16)
[2017-05-30] MEDS: LIDOCAINE 5% TOPICAL PATCH TP SCH (10:00)
[2017-05-30] MEDS: risperiDONE 2 MG TABLET PO SCH ×2 (10:01→22:11)
[2017-05-30] MEDS: PRENATAL VITAMINS W/ FOLIC ACID TABLET (FP) PO SCH (10:01)
[2017-05-30] MEDS: DOXAZOSIN MESYLATE 4 MG TABLET PO SCH (10:01)
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
[2017-05-30] MEDS: NAPROXEN 500 MG TABLET (FP) PO SCH ×2 (13:10→22:10)
[2017-05-30] MEDS: PANTOPRAZOLE 40 MG TABLET (FP) PO SCH (13:10)
[2017-05-30] MEDS: CYCLOBENZAPRINE HCL 10 MG TABLET (FP) PO SCH ×2 (14:09→22:11)
[2017-05-30] MEDS: THIAMINE HCL 100 MG TABLET (FP) PO SCH (22:11)
[2017-05-30] MEDS: LIDOCAINE PATCH REMOVAL MC SCH (22:12)
[2017-05-30] MEDS: AMITRIPTYLINE HCL 50 MG TABLET PO SCH ×2 (22:12→23:10)
[2017-05-31] MEDS: CYCLOBENZAPRINE HCL 10 MG TABLET (FP) PO SCH ×3 (06:04→21:45)
[2017-05-31 06:55] VITALS: TEMP 97.6
[2017-05-31] MEDS: PANTOPRAZOLE 40 MG TABLET (FP) PO SCH (10:21)
[2017-05-31] MEDS: PRENATAL VITAMINS W/ FOLIC ACID TABLET (FP) PO SCH (10:21)
[2017-05-31] MEDS: risperiDONE 2 MG TABLET PO SCH ×2 (10:21→21:45)
[2017-05-31] MEDS: NAPROXEN 500 MG TABLET (FP) PO SCH ×2 (10:22→21:45)
[2017-05-31] MEDS: DOXAZOSIN MESYLATE 4 MG TABLET PO SCH (10:22)
[2017-05-31] MEDS: LIDOCAINE 5% TOPICAL PATCH TP SCH (10:22)
[2017-05-31] MEDS: THIAMINE HCL 100 MG TABLET (FP) PO SCH (21:45)
[2017-05-31] MEDS: LIDOCAINE PATCH REMOVAL MC SCH (21:46)
[2017-05-31] MEDS ORDERED: AMITRIPTYLINE HCL 25 MG TABLET (FP) PO SCH (22:00)
[2017-06-01] MEDS: CYCLOBENZAPRINE HCL 10 MG TABLET (FP) PO SCH (05:44)
[2017-06-01 07:07] VITALS: BP 124/76; PULSE 89
[2017-06-01] MEDS: NAPROXEN 500 MG TABLET (FP) PO SCH (10:17)
[2017-06-01] MEDS: PANTOPRAZOLE 40 MG TABLET (FP) PO SCH (10:17)
[2017-06-01] MEDS: DOXAZOSIN MESYLATE 4 MG TABLET PO SCH (10:17)
[2017-06-01] MEDS: PRENATAL VITAMINS W/ FOLIC ACID TABLET (FP) PO SCH (10:17)
[2017-06-01] MEDS: risperiDONE 2 MG TABLET PO SCH (10:17)
[2017-06-01] MEDS: LIDOCAINE 5% TOPICAL PATCH TP SCH (10:18)
--- NOTE | 2017-06-01 13:00 | PN ---
Psychiatric Progress Note Vital Signs: Vital Signs Period Temp Pulse Resp BP Sys/Gallagher Pulse Ox Last 24 Hr 97.6 F 89 16-18 124/76 Date of Session: 06/01/17 Chief Complaint:: Discharge Note HPI: Patient addressing Alcohol, Opoid and Cocaine Dependence comorbid with Nicotine Dependence and Schizophrenia ROS: BPH, Left shoulder pain Current Medications: Active Medications Generic Name Dose Route Start Last Admin Trade Name Freq PRN Reason Stop Dose Admin Acetaminophen 650 mg 05/23/17 14:59 Tylenol - PO Q4H PRN FEVER Al Hydroxide/Mg Hydroxide 30 ml 05/23/17 14:59 Mylanta Oral Suspension - PO Q6H PRN DYSPEPSIA Amitriptyline HCl 50 mg 05/31/17 22:00 05/31/17 21:46 Elavil - PO 50 mg HS RICHY Administration Colloidal Oatmeal 1 applic 05/24/17 14:24 Aveeno Soap - TP DAILY PRN HYGEINE Cyclobenzaprine HCl 10 mg 05/30/17 14:00 06/01/17 05:44 Flexeril - PO 10 mg TID RICHY Administration Doxazosin Mesylate 4 mg 05/24/17 10:00 06/01/17 10:17 Cardura - PO 4 mg DAILY RICHY Administration Eucalyptus/Menthol/Phenol/Sorbitol 1 each 05/23/17 14:59 Cepastat Lozenge - MM Q4H PRN SORE THROAT Guaifenesin 10 ml 05/23/17 14:59 Robitussin Dm - PO Q6H PRN COUGH Hydroxyzine Pamoate 100 mg 05/23/17 14:59 Vistaril - PO Q4H PRN AGITATION Lidocaine 1 patch 05/26/17 10:00 06/01/17 10:18 Lidoderm Patch - TP 1 patch DAILY RICHY Administration Loperamide HCl 4 mg 05/23/17 14:59 Imodium - PO Q6H PRN DIARRHEA Magnesium Citrate 300 ml 05/23/17 14:59 Citroma - PO Q48H PRN CONSTIPATION Magnesium Hydroxide 30 ml 05/23/17 14:59 Milk Of Magnesia - PO DAILY PRN CONSTIPATION Miscellaneous 1 each 05/25/17 22:00 05/31/17 21:46 Lidoderm Patch Removal MC 1 each DAILY@2200 RICHY Administration Naproxen 500 mg 05/30/17 12:00 06/01/17 10:17 Naprosyn - PO 500 mg BID RICHY Administration Pantoprazole Sodium 40 mg 05/30/17 12:00 06/01/17 10:17 Protonix - PO 40 mg DAILY RICHY Administration Multivit/Folic Acid/Iron 1 tab 05/24/17 10:00 06/01/17 10:17 Vitamins (Sjr) - PO 1 tab DAILY RICHY Administration Pseudoephedrine/Triprolidine 1 combo 05/23/17 14:59 Actifed - PO TID PRN NASAL CONGESTION Risperidone 2 mg 05/25/17 22:00 06/01/17 10:17 Risperdal - PO 2 mg BID RICHY Administration Thiamine HCl 100 mg 05/23/17 22:00 05/31/17 21:45 Vitamin B1 - PO 100 mg HS RICHY Administration Current Side Effect: No Lab tests ordered: Yes Lab tests reviewed: Yes Provider note:: Patient has completed this program today. He has partially met his treatment goals and will continue to address his issues in outtpatient treatment at [facility]. Told brief writer that from his participation in this program, he has learned the importance of establising a sober support network in order to maintain sobriety. He responded well to Risperdal 2 mg po BID. Script for that medication is electronically transmitted to [facility] at [address] [place] [address] [phone]. He is stable for discharge today Total face to face time:: 35 Mental Status Exam - Mental Status Exam Alert and Oriented to: Time, Place, Person Cognitive Function: Fair Patient Appearance: Well Groomed Mood: Hopeful, Euthymic Affect: Appropriate Patient Behavior: Cooperative Speech Pattern: Clear Voice Loudness: Normal Thought Process: Intact, Goal Oriented Thought Disorder: Not Present Hallucinations: Denies Suicidal Ideation: Denies Homicidal Ideation: Denies Insight/Judgement: Fair Sleep: Well Appetite: Good Muscle strength/Tone: Normal Gait/Station: Normal Psychiatric Treatment Plan - Problem List (1) Alcohol dependence Current Visit: Yes (2) Opioid dependence Current Visit: Yes (3) Cocaine dependence Current Visit: Yes Qualifiers: (4) Nicotine dependence Current Visit: Yes Qualifiers: (5) Schizophrenia Current Visit: Yes Comment: Self-report.On medications (confirmed at [facility] # [id number]).Patient is affiliated with [facility] for psychiatric OPD care. (6) Shoulder arthritis Current Visit: Yes (7) BPH (benign prostatic hyperplasia) Current Visit: No Qualifiers: Initial treatment plan: Patient is discharged today and referred to [facility] for outpatient treatment
== END 2017-06-01 13:45 | disposition home or self-care (01) | DRG 773 ==
LOC: YASAS 11:34 → Y3W 11:36
PROVIDERS: ADMIT Psychiatry & Neurology Psychiatry; ATTEND Psychiatry & Neurology Psychiatry
DX: F11.20 Opioid dependence, uncomplicated (principal); F10.20 Alcohol dependence, uncomplicated; F14.20 Cocaine dependence, uncomplicated; F17.210 Nicotine dependence, cigarettes, uncomplicated; F20.9 Schizophrenia, unspecified; M19.019 Primary osteoarthritis, unspecified shoulder; N40.0 Benign prostatic hyperplasia without lower urinary tract symptoms; E86.0 Dehydration; R63.4 Abnormal weight loss; Z68.21 Body mass index [BMI] 21.0-21.9, adult; Z59.0 Homelessness
CPT/HCPCS: 73030-TC-LT-FY

== ENCOUNTER 2017-10-18 11:31 | Inpatient (IN) | payer OTHER ==
[2017-10-18 12:20] VITALS: BMI 20.8
--- NOTE | 2017-10-18 12:53 | HP ---
CIWA Score - CIWA Score Nausea/Vomitin-Mild Nausea/No Vomiting Muscle Tremors: 4-Moderate,w/Arms Extend Anxiety: 4-Mod. Anxious/Guarded Agitation: 4-Moderately Restless Paroxysmal Sweats: 1-Minimal Palms Moist Orientation: 1-Uncertain about Date Tacttile Disturbances: 1-Very Mild Itch/Numbness Auditory Disturbances: 0-None Visual Disturbances: 0-None Headache: 0-None Present CIWA-Ar Total Score: 16 Admission ROS S - HPI Chief Complaint: alcohol withdrawal sx Allergies/Adverse Reactions: Allergies Allergy/AdvReac Type Severity Reaction Status Date / Time No Known Drug Allergies Allergy Verified 10/18/17 12:00 lactose AdvReac Intermediate Vomiting Verified 10/18/17 12:00 History of Present Illness: 57 years old male with long history of alcohol dependence has schizophrenia denies medical issues is admitted to detox Exam Limitations: No Limitations - Ebola screening Have you traveled outside of the country in the last 21 days: No Have you had contact with anyone from an Ebola affected area: No Have you been sick,other than usual withdrawal symptoms: No Do you have a fever: No - Review of Systems Constitutional: Loss of Appetite, Changes in sleep, Unintentional Wgt. Loss, Unexplained wgt Loss EENT: reports: No Symptoms Reported Respiratory: reports: No Symptoms reported Cardiac: reports: No Symptoms Reported GI: reports: Nausea, Poor Appetite, Poor Fluid Intake, Abdominal cramping : reports: No Symptoms Reported Integumentary: reports: No Symptoms Reported Neuro: reports: Tremors Endocrine: reports: No Symptoms Reported Hematology: reports: No Symptoms Reported Psychiatric: reports: Judgement Intact, Anxious, Depressed Other Systems: Reviewed and Negative Patient History - Patient Medical History Hx Anemia: No Hx Asthma: No Hx Chronic Obstructive Pulmonary Disease (COPD): No Hx Cancer: No Hx Cardiac Disorders: No Hx Congestive Heart Failure: No Hx Hypertension: No Hx Hypercholesterolemia: No Hx Pacemaker: No HX Cerebrovascular Accident: No Hx Seizures: No Hx Dementia: No Hx Diabetes: No Hx Gastrointestinal Disorders: No Hx Liver Disease: No Hx Genitourinary Disorders: No Hx Sexually Transmitted Disorders: No Hx Renal Disease (ESRD): No Hx Thyroid Disease: No Hx Human Immunodeficiency Virus (HIV): No (last tested three weeks ago, negtive ) Hx Hepatitis C: No Hx Depression: No Hx Suicide Attempt: Yes (05/2017 cut left arm) Hx Bipolar Disorder: No Hx Schizophrenia: Yes - Patient Surgical History Past Surgical History: No Hx Neurologic Surgery: No Hx Cataract Extraction: No Hx Cardiac Surgery: No Hx Lung Surgery: No Hx Breast Surgery: No Hx Breast Biopsy: No Hx Abdominal Surgery: No Hx Appendectomy: No Hx Cholecystectomy: No Hx Genitourinary Surgery: No Hx Orthopedic Surgery: No - PPD History Previous Implant?: Yes Documented Results: Negative w/o proof Implanted On Prior [facility] Admission?: No PPD to be Administered?: Yes - Smoking Cessation Smoking history: Former smoker Have you smoked in the past 12 months: No Aproximately how many cigarettes per day: 0 If you are a former smoker, when did you quit?: 4months ago Cigars Per Day: 0 Hx Chewing Tobacco Use: No Initiated information on smoking cessation: No - Substance & Tx. History Hx Alcohol Use: Yes Hx Substance Use: Yes Substance Use Type: Alcohol, Cocaine Hx Substance Use Treatment: Yes (05/2017 [facility] - Substances Abused Alcohol Route: Oral Frequency: Daily Amount used: VODKA- 4PTS BEERS- 6CANS Age of first use: 18 Date of Last Use: 10/18/17 Cocaine Route: Smoking Frequency: Daily Amount used: 10BAGS- $100 Age of first use: 20 Date of Last Use: 10/16/17 Family Disease History - Family Disease History Family Disease History: Other: Father (, homocide ), Mother (alive and well ) Admission Physical Exam BHS - Vital Signs Vital Signs: Vital Signs - 24 hr 10/18/17 11:58 Temperature 98.7 F Pulse Rate 96 H Respiratory 18 Rate Blood Pressure 118/67 - Physical General Appearance: Yes: Appropriately Dressed, Mild Distress, Alcohol on Breath , Thin, Tremorous, Irritable, Sweating, Anxious HEENTM: Yes: Hearing grossly Normal, Normocephalic, Normal Voice Respiratory: Yes: Chest Non-Tender, Lungs Clear, Normal Breath Sounds, No Respiratory Distress, No Accessory Muscle Use Neck: Yes: Supple, Trachea in good position Breast: Yes: Breasts Symetrical, No Discharge Cardiology: Yes: Regular Rhythm, S1, S2, Tachycardia Abdominal: Yes: Non Tender, Flat, Increased Bowel Sounds Genitourinary: Yes: Within Normal Limits, Other (denies prostate issue) Back: Yes: Normal Inspection Musculoskeletal: Yes: full range of Motion, Gait Steady, Back pain, Muscle Pain Extremities: Yes: Normal Inspection (left fore arm scars), Normal Range of Motion, Non-Tender, Tremors Neurological: Yes: Alert, Motor Strength 5/5, Normal Response, Depressed Affect Integumentary: Yes: Warm Lymphatic: Yes: Within Normal Limits - Diagnostic (1) Alcohol dependence Current Visit: Yes Status: Acute Qualifiers: Substance use status: uncomplicated Qualified Code(s): F10.20 - Alcohol dependence, uncomplicated (2) Cocaine dependence Current Visit: Yes Status: Chronic Qualifiers: Substance use status: uncomplicated (3) Weight loss Current Visit: Yes Status: Acute (4) Schizophrenia Current Visit: Yes Status: Suspected Qualifiers: Schizophrenia type: other Qualified Code(s): F20.89 - Other schizophrenia; F20.8 - Other schizophrenia Comment: Self-report.On medications (confirmed at [facility] # [id number]).Patient is affiliated with [facility] for psychiatric OPD care. Cleared for Admission [facility] - Detox or Rehab [facility] Level of Care: Medically Managed Detox Regimen/Protocol: Librium [facility] Breath Alcohol Content Breath Alcohol Content: 0.076 Urine Drug Screen - Control Is Test Valid: Yes - Results Drug Screen Negative: No Urine Drug Screen Results: RAMIRO-Cocaine
[2017-10-18] MEDS ORDERED: P-EPHED 60MG/TRIPROLIDI 2.5MG TABLET PO PRN (12:54)
[2017-10-18] MEDS ORDERED: MAG HYDROX/AL HYDROX/SIMETH 30 ML UNIT-DOSE CUP PO PRN (12:54)
[2017-10-18] MEDS ORDERED: LOPERAMIDE HCL 2 MG CAPSULE PO PRN (12:54)
[2017-10-18] MEDS ORDERED: MENTHOL/PHENOL 1 EACH UD MM PRN (12:54)
[2017-10-18] MEDS ORDERED: MAGNESIUM CITRATE 300 ML BOTTLE PO PRN (12:54)
[2017-10-18] MEDS ORDERED: ACETAMINOPHEN 325 MG TABLET (FP) PO PRN (12:54)
[2017-10-18] MEDS ORDERED: guaiFENesin/D-METHORPHAN HB 10 ML UNIT-DOSE CUPS PO PRN (12:54)
[2017-10-18] MEDS ORDERED: IBUPROFEN 400 MG TABLET (FP) PO PRN (12:54)
[2017-10-18] MEDS ORDERED: chlordiazePOXIDE HCL 25 MG CAPSULE PO PRN (12:54)
[2017-10-18] MEDS ORDERED: MAGNESIUM HYDROX 2400MG/30ML ORAL SUSPENSION 30 ML CUP PO PRN (12:54)
--- NOTE | 2017-10-18 13:41 | CONSULT ---
[facility] Psychiatric Consult - Data Date of interview: 10/18/17 Admission source: [facility] Identifying data: This is 57 years old male, single, father of one, homeless, on SSI, with no psychiatric hospitalization history, as per computer with history of Schizophrenia, with long history of alcohol, Cocaine dependence, seeking for detox. Substance Abuse History: Smoking history: Former smoker. Have you smoked in the past 12 months: No. Aproximately how many cigarettes per day: 0. If you are a former smoker, when did you quit?: 4months ago. Cigars Per Day: 0. Hx Chewing Tobacco Use: No. Initiated information on smoking cessation: No. - Substance & Tx. History. Hx Alcohol Use: Yes. Hx Substance Use: Yes. Substance Use Type: Alcohol, Cocaine. Hx Substance Use Treatment: Yes (05/2017 [facility]). - Substances Abused. Alcohol. Route: Oral. Frequency: Daily. Amount used: VODKA- 4PTS BEERS- 6CANS. Age of first use: 18. Date of Last Use: 10/18/17. Cocaine. Route: Smoking. Frequency: Daily. Amount used: 10BAGS- $100. Age of first use: 20. Date of Last Use: 10/16/17 Medical History: Weight loss history, denies significant medical issues. Psychiatric History: Patient has a history of Schisophrenia, reports taking prior to admission;. Rispaedal 2mg po bid. Denies psychiatric hospitalization history, reports cutting himself, as a mutilation act on 05/2017, patiernt reports it was intentionalsuperficial injures of body tissue without suicidal intentions. Patient denies suicidal. niki,icidal attaempts history. Physical/Sexual Abuse/Trauma History: Denies Additional Comment: Risperdal 2mg po bid Mental Status Exam - Mental Status Exam Alert and Oriented to: Person Cognitive Function: Fair Patient Appearance: Unkempt Mood: Anxious Affect: Mood Congruent Patient Behavior: Cooperative Voice Loudness: Normal Thought Process: Goal Oriented Thought Disorder: Being Controlled Hallucinations: Denies Suicidal Ideation: Denies Homicidal Ideation: Denies Insight/Judgement: Fair Sleep: Difficulty falling asleep Appetite: Weight gain Muscle strength/Tone: Normal Gait/Station: Normal Additional Comments: Risperdal 2mg po bid Psychiatric Findings - Problem List ([place] 1, 2,3) (1) Alcohol dependence Current Visit: Yes Status: Acute Qualifiers: Substance use status: uncomplicated Qualified Code(s): F10.20 - Alcohol dependence, uncomplicated (2) Weight loss Current Visit: Yes Status: Acute (3) Cocaine dependence Current Visit: Yes Status: Chronic Qualifiers: Substance use status: uncomplicated (4) Schizophrenia Current Visit: Yes Status: Chronic Qualifiers: Schizophrenia type: other Qualified Code(s): F20.89 - Other schizophrenia; F20.8 - Other schizophrenia Comment: Self-report.On medications (confirmed at [facility] # [id number]).Patient is affiliated with [facility] psychiatric OPD care. (5) Alcohol dependence Current Visit: No Status: Acute (6) Alcohol dependence with withdrawal Current Visit: No Status: Acute Qualifiers: Complication of substance-induced condition: uncomplicated Qualified Code(s ): F10.230 - Alcohol dependence with withdrawal, uncomplicated (7) Difficulty sleeping Current Visit: No Status: Acute (8) Nicotine dependence Current Visit: No Status: Acute Qualifiers: (9) Opioid dependence Current Visit: No Status: Acute (10) BPH (benign prostatic hyperplasia) Current Visit: No Status: Chronic Qualifiers: (11) Heroin dependence Current Visit: No Status: Chronic - Initial Treatment Plan Initial Treatment Plan: Risperdal 2mg po bid
[2017-10-18] MEDS: chlordiazePOXIDE HCL 25 MG CAPSULE PO SCH ×2 (17:23→23:36)
[2017-10-18 17:29] LABS: URINE APPEARANCE CLEAR; URINE BILIRUBIN NEGATIVE (<2.0 mg/dL); URINE COLOR COLORLESS; URINE GLUCOSE (UA) NEGATIVE (NEGATIVE); URINE KETONE NEGATIVE (NEGATIVE); URINE LEUK ESTERASE NEGATIVE (NEGATIVE); URINE NITRITE NEGATIVE (NEGATIVE); URINE PROTEIN NEGATIVE (NEGATIVE); URINE UROBILINOGEN NEGATIVE mg/dL (0.2-1.0)
[2017-10-18] MEDS ORDERED: MELATONIN 5 MG TABLETS PO PRN (22:00)
[2017-10-18] MEDS: THIAMINE HCL 100 MG TABLET (FP) PO SCH (23:36)
[2017-10-18] MEDS: risperiDONE 2 MG TABLET PO SCH (23:36)
[2017-10-19] MEDS: chlordiazePOXIDE HCL 25 MG CAPSULE PO SCH ×4 (06:17→22:26)
[2017-10-19 09:48] LABS: HEMATOCRIT 38.1 % (35.4-49); HEMOGLOBIN 12.6 GM/dL (11.7-16.9); MCH 30.4 pg (25.7-33.7); MCHC 33.2 g/dl (32.0-35.9); MEAN CELL VOLUME 91.5 fl (80-96); MEAN PLT VOLUME 8.3 fl (7.5-11.1); PLATELET COUNT 316 K/MM3 (134-434); RBC 4.16 M/mm3 (4.00-5.60); WHITE BLOOD COUNT 3.8 K/mm3 (4.0-10.0)
[2017-10-19 10:58] LABS: ALBUMIN 3.9 g/dl (3.4-5.0); ALK PHOS 41 U/L (45-117); ANION GAP 8 (8-16); BILIRUBIN,TOTAL 0.2 mg/dL (0.2-1.0); BLOOD UREA NITROGEN 8 mg/dL (7-18); CALCIUM 9.6 mg/dL (8.5-10.1); CHLORIDE 108 mmol/L (98-107); CO2 26 mmol/L (21-32); CREATININE 0.8 mg/dL (0.7-1.3); GLUCOSE,RANDOM 90 mg/dL (74-106); POTASSIUM 3.6 mmol/L (3.5-5.1); SGOT/AST 16 U/L (15-37); SGPT/ALT 22 U/L (12-78); SODIUM 142 mmol/L (136-145); TOT PROT 7.4 g/dl (6.4-8.2)
[2017-10-19] MEDS: PRENATAL VITAMINS W/ FOLIC ACID TABLET (FP) PO SCH (10:59)
[2017-10-19] MEDS: risperiDONE 2 MG TABLET PO SCH ×2 (10:59→22:26)
--- NOTE | 2017-10-19 11:32 | EKG ---
Test Reason : Blood Pressure : / mmHG Vent. Rate : 079 BPM Atrial Rate : 079 BPM P-R Int : 140 ms QRS Dur : 078 ms QT Int : 400 ms P-R-T Axes : 078 069 047 degrees QTc Int : 458 ms NORMAL SINUS RHYTHM POSSIBLE LEFT ATRIAL ENLARGEMENT BORDERLINE ECG Confirmed by MD IRMA, ANABEL ([id number]) on 10/19/2017 11:31:52 AM Referred By: Confirmed By:ANABEL SOLIS MD
--- NOTE | 2017-10-19 12:11 | PN ---
S CIWA - CIWA Score Nausea/Vomitin Muscle Tremors: 3 Anxiety: 3 Agitation: 2 Paroxysmal Sweats: 1-Minimal Palms Moist Orientation: 0-Oriented Tacttile Disturbances: 1-Very Mild Itch/Numbness Auditory Disturbances: 1-Very Mild Visual Disturbances: 0-None Headache: 2-Mild CIWA-Ar Total Score: 16 BHS Progress Note (SOAP) Subjective: alert,irritable,anxious,interrupted sleep,tremor Objective: 10/19/17 12:04 Vital Signs Temperature 97.2 F L 10/19/17 09:13 Pulse Rate 100 H 10/19/17 09:13 Respiratory Rate 18 10/19/17 09:13 Blood Pressure 114/67 10/19/17 09:13 O2 Sat by Pulse Oximetry (%) 10/19/17 12:05 nsr QT 400/458 Laboratory Last Values WBC 3.8 K/mm3 (4.0-10.0) L 10/19/17 06:00 RBC 4.16 M/mm3 (4.00-5.60) 10/19/17 06:00 Hgb 12.6 GM/dL (11.7-16.9) 10/19/17 06:00 Hct 38.1 % (35.4-49) 10/19/17 06:00 MCV 91.5 fl (80-96) 10/19/17 06:00 MCH 30.4 pg (25.7-33.7) 10/19/17 06:00 MCHC 33.2 g/dl (32.0-35.9) 10/19/17 06:00 RDW 15.0 % (11.9-15.9) 10/19/17 06:00 Plt Count 316 K/MM3 (134-434) 10/19/17 06:00 MPV 8.3 fl (7.5-11.1) 10/19/17 06:00 Sodium 142 mmol/L (136-145) 10/19/17 06:00 Potassium 3.6 mmol/L (3.5-5.1) 10/19/17 06:00 Chloride 108 mmol/L (98-107) H 10/19/17 06:00 Carbon Dioxide 26 mmol/L (21-32) 10/19/17 06:00 Anion Gap 8 (8-16) 10/19/17 06:00 BUN 8 mg/dL (7-18) 10/19/17 06:00 Creatinine 0.8 mg/dL (0.7-1.3) 10/19/17 06:00 Creat Clearance w eGFR > 60 (>60) 10/19/17 06:00 Random Glucose 90 mg/dL (74-106) 10/19/17 06:00 Calcium 9.6 mg/dL (8.5-10.1) 10/19/17 06:00 Total Bilirubin 0.2 mg/dL (0.2-1.0) 10/19/17 06:00 AST 16 U/L (15-37) D 10/19/17 06:00 ALT 22 U/L (12-78) D 10/19/17 06:00 Alkaline Phosphatase 41 U/L (45-117) L 10/19/17 06:00 Total Protein 7.4 g/dl (6.4-8.2) 10/19/17 06:00 Albumin 3.9 g/dl (3.4-5.0) 10/19/17 06:00 Urine Color Colorless 10/18/17 16:00 Urine Appearance Clear 10/18/17 16:00 Urine pH 6.0 (5.0-8.0) 10/18/17 16:00 Ur Specific [place] 1.002 (1.001-1.035) 10/18/17 16:00 Urine Protein Negative (NEGATIVE) 10/18/17 16:00 Urine Glucose (UA) Negative (NEGATIVE) 10/18/17 16:00 Urine Ketones Negative (NEGATIVE) 10/18/17 16:00 Urine Blood Negative (NEGATIVE) 10/18/17 16:00 Urine Nitrite Negative (NEGATIVE) 10/18/17 16:00 Urine Bilirubin Negative (<2.0 mg/dL) 10/18/17 16:00 Urine Urobilinogen Negative mg/dL (0.2-1.0) 10/18/17 16:00 Ur Leukocyte Esterase Negative (NEGATIVE) 10/18/17 16:00 HIV 1&2 Antibody Screen Negative 10/18/17 12:45 HIV P24 Antigen Negative 10/18/17 12:45 Assessment: 10/19/17 12:11 withdrawal symptom Plan: continue detox
[2017-10-19] MEDS: THIAMINE HCL 100 MG TABLET (FP) PO SCH (22:26)
[2017-10-20] MEDS: chlordiazePOXIDE HCL 25 MG CAPSULE PO SCH ×2 (06:12→10:24)
[2017-10-20] MEDS: PRENATAL VITAMINS W/ FOLIC ACID TABLET (FP) PO SCH (10:24)
[2017-10-20] MEDS: risperiDONE 2 MG TABLET PO SCH ×2 (10:24→22:27)
--- NOTE | 2017-10-20 12:32 | PN ---
S CIWA - CIWA Score Nausea/Vomitin Muscle Tremors: 3 Anxiety: 2 Agitation: 2 Paroxysmal Sweats: 1-Minimal Palms Moist Orientation: 0-Oriented Tacttile Disturbances: 1-Very Mild Itch/Numbness Auditory Disturbances: 1-Very Mild Visual Disturbances: 0-None Headache: 2-Mild CIWA-Ar Total Score: 15 BHS Progress Note (SOAP) Subjective: alert,irritable,anxious,interrupted sleep,tremor Objective: 10/20/17 12:31 Vital Signs Temperature 97.3 F L 10/20/17 09:14 Pulse Rate 80 10/20/17 09:14 Respiratory Rate 18 10/20/17 09:14 Blood Pressure 112/58 10/20/17 09:14 O2 Sat by Pulse Oximetry (%) Assessment: 10/20/17 12:31 withdrawal symptom Plan: continue detox,discharge in am
[2017-10-20] MEDS: chlordiazePOXIDE 5 MG CAPSULE PO SCH ×2 (17:19→22:27)
[2017-10-20] MEDS: THIAMINE HCL 100 MG TABLET (FP) PO SCH (22:27)
[2017-10-21] MEDS: chlordiazePOXIDE 5 MG CAPSULE PO SCH ×2 (05:52→10:45)
--- NOTE | 2017-10-21 07:35 | CONSULT ---
[facility] Psychiatric Consult - Data Date of interview: 10/21/17 Admission source: [facility] Identifying data: 40 years old male with long history of alcohol nicotine dependence methadone program 140 mg anxiety depression is admitted to detox Psychiatric Findings - Problem List ([place] 1, 2,3) (1) Alcohol dependence Current Visit: Yes Status: Acute Qualifiers: Substance use status: uncomplicated Qualified Code(s): F10.20 - Alcohol dependence, uncomplicated (2) Weight loss Current Visit: Yes Status: Acute (3) Cocaine dependence Current Visit: Yes Status: Chronic Qualifiers: Substance use status: uncomplicated Qualified Code(s): F14.20 - Cocaine dependence, uncomplicated (4) Schizophrenia Current Visit: Yes Status: Chronic Qualifiers: Schizophrenia type: other Qualified Code(s): F20.89 - Other schizophrenia; F20.8 - Other schizophrenia Comment: Self-report.On medications (confirmed at [facility] # [id number]).Patient is affiliated with [facility] for psychiatric OPD care. (5) Alcohol dependence Current Visit: No Status: Acute (6) Alcohol dependence with withdrawal Current Visit: No Status: Acute Qualifiers: Complication of substance-induced condition: uncomplicated Qualified Code(s ): F10.230 - Alcohol dependence with withdrawal, uncomplicated (7) Difficulty sleeping Current Visit: No Status: Acute (8) Nicotine dependence Current Visit: No Status: Acute Qualifiers: (9) Opioid dependence Current Visit: No Status: Acute (10) BPH (benign prostatic hyperplasia) Current Visit: No Status: Chronic Qualifiers: (11) Heroin dependence Current Visit: No Status: Chronic
[2017-10-21 07:53] VITALS: PULSE 76
--- NOTE | 2017-10-21 08:29 | PN ---
Psychiatric Progress Note Vital Signs: Vital Signs Period Temp Pulse Resp BP Sys/Gallagher Pulse Ox Last 24 Hr 97.2 F-98.1 F 69-80 16-18 103-131/56-79 Date of Session: 10/21/17 Chief Complaint:: My medications HPI: Patient is anxious rgarding his medications refills upon dischrge, and wants to change his dispensing pharmacy. Current Medications: Active Medications Generic Name Dose Route Start Last Admin Trade Name Freq PRN Reason Stop Dose Admin Acetaminophen 650 mg 10/18/17 12:54 Tylenol - PO Q4H PRN FEVER Al Hydroxide/Mg Hydroxide 30 ml 10/18/17 12:54 Mylanta Oral Suspension - PO Q6H PRN DYSPEPSIA Chlordiazepoxide HCl 15 mg 10/20/17 17:00 10/21/17 05:52 Librium - PO 10/21/17 11:01 15 mg [id number] RICHY Administration Chlordiazepoxide HCl 25 mg 10/18/17 12:54 10/18/17 13:55 Librium - PO 10/21/17 12:53 25 mg Q4H PRN Administration WITHDRAWAL(CONT SUBST) Chlordiazepoxide HCl 10 mg 10/21/17 17:00 Librium - PO 10/22/17 11:01 [id number] RICHY Eucalyptus/Menthol/Phenol/Sorbitol 1 each 10/18/17 12:54 Cepastat Lozenge - MM Q4H PRN SORE THROAT Guaifenesin 10 ml 10/18/17 12:54 Robitussin Dm - PO Q6H PRN COUGH Ibuprofen 400 mg 10/18/17 12:54 Motrin - PO Q6H PRN PAIN LEVEL 4-6 Loperamide HCl 4 mg 10/18/17 12:54 Imodium - PO Q6H PRN DIARRHEA Magnesium Citrate 300 ml 10/18/17 12:54 Citroma - PO Q48H PRN CONSTIPATION Magnesium Hydroxide 30 ml 10/18/17 12:54 Milk Of Magnesia - PO DAILY PRN CONSTIPATION Melatonin 5 mg 10/18/17 22:00 Melatonin PO HS PRN INSOMNIA Multivit/Folic Acid/Iron 1 tab 10/19/17 10:00 10/20/17 10:24 Vitamins (Sjr) - PO 1 tab DAILY RICHY Administration Pseudoephedrine/Triprolidine 1 combo 10/18/17 12:54 Actifed - PO TID PRN NASAL CONGESTION Risperidone 2 mg 10/18/17 22:00 10/20/17 22:27 Risperdal - PO 2 mg BID RICHY Administration Thiamine HCl 100 mg 10/18/17 22:00 10/20/17 22:27 Vitamin B1 - PO 100 mg HS RICHY Administration Medication(s) Change(s): none Provider note:: Supportive psychotherapy provided, patient orders for nRisperdal 2mg po [facility]. Mental Status Exam - Mental Status Exam Alert and Oriented to: Time, Place, Person Cognitive Function: Fair Patient Appearance: Unkempt Mood: Anxious Affect: Mood Congruent Patient Behavior: Cooperative Speech Pattern: Appropriate Voice Loudness: Normal Thought Process: Circumstantial Thought Disorder: Being Controlled Hallucinations: Denies Suicidal Ideation: Denies Homicidal Ideation: Denies Insight/Judgement: Fair Sleep: Difficulty falling asleep Appetite: Weight loss Muscle strength/Tone: Normal Gait/Station: Normal Additional Comments: Supportive psychotherapy provided Psychiatric Treatment Plan - Problem List (1) Alcohol dependence Current Visit: Yes Qualifiers: Substance use status: uncomplicated Qualified Code(s): F10.20 - Alcohol dependence, uncomplicated (2) Weight loss Current Visit: Yes (3) Cocaine dependence Current Visit: Yes Qualifiers: Substance use status: uncomplicated Qualified Code(s): F14.20 - Cocaine dependence, uncomplicated (4) Schizophrenia Current Visit: Yes Qualifiers: Schizophrenia type: other Qualified Code(s): F20.89 - Other schizophrenia; F20.8 - Other schizophrenia Comment: Self-report.On medications (confirmed at [facility] # [id number]).Patient is affiliated with [facility] for psychiatric OPD care. (5) Alcohol dependence Current Visit: No (6) Alcohol dependence with withdrawal Current Visit: No Qualifiers: Complication of substance-induced condition: uncomplicated Qualified Code(s ): F10.230 - Alcohol dependence with withdrawal, uncomplicated (7) Difficulty sleeping Current Visit: No (8) Nicotine dependence Current Visit: No Qualifiers: (9) Opioid dependence Current Visit: No (10) BPH (benign prostatic hyperplasia) Current Visit: No Qualifiers: (11) Heroin dependence Current Visit: No Initial treatment plan: Supportive psychotherapy provided. Medications resended to patient's pharmacy
[2017-10-21 10:15] VITALS: BP 116/67; TEMP 98
--- NOTE | 2017-10-21 10:39 | PN ---
BHS Progress Note (SOAP) Subjective: alert,no complaint Objective: 10/21/17 10:37 Vital Signs Temperature 98 F 10/21/17 10:15 Pulse Rate 76 10/21/17 10:15 Respiratory Rate 18 10/21/17 10:15 Blood Pressure 116/67 10/21/17 10:15 O2 Sat by Pulse Oximetry (%) 10/21/17 10:37 patient has no withdrawal symptom stable for discharge Assessment: 10/21/17 10:38 no withdrawal symptom Plan: discharge today,follow up with [facility] as arrangement
--- NOTE | 2017-10-21 10:42 | DS ---
[facility] Detox Discharge Summary Admission Date: 10/18/17 Discharge Date: 10/21/17 - History Present History: Alcohol Dependence, Cocaine Dependence Pertinent Past History: weight loss schizophrenia - Physical Exam Results Vital Signs: Vital Signs Temperature 98 F 10/21/17 10:15 Pulse Rate 76 10/21/17 10:15 Respiratory Rate 18 10/21/17 10:15 Blood Pressure 116/67 10/21/17 10:15 O2 Sat by Pulse Oximetry (%) Pertinent Admission Physical Exam Findings: withdrawal signs and symptom - Treatment Hospital Course: Detox Protocol Followed, Detoxed Safely, Responded well, Discharged Condition Good, Rehab Referral Accepted Patient has Accepted a Rehab Referral to: [facility] - Medication Discharge Medications: Ambulatory Orders Risperidone [Risperdal -] 2 mg PO BID #60 tablet 06/01/17 Risperidone [Risperdal -] 2 mg PO BID #60 tablet 10/18/17 - Diagnosis (1) Alcohol dependence with withdrawal Current Visit: No Status: Acute Qualifiers: Complication of substance-induced condition: uncomplicated Qualified Code(s ): F10.230 - Alcohol dependence with withdrawal, uncomplicated (2) Weight loss Current Visit: Yes Status: Acute (3) Cocaine dependence Current Visit: Yes Status: Chronic Qualifiers: Substance use status: uncomplicated Qualified Code(s): F14.20 - Cocaine dependence, uncomplicated (4) Nicotine dependence Current Visit: No Status: Acute Qualifiers: - AMA Did Patient Leave Against Medical Advice: No
[2017-10-21] MEDS: PRENATAL VITAMINS W/ FOLIC ACID TABLET (FP) PO SCH (10:45)
[2017-10-21] MEDS: risperiDONE 2 MG TABLET PO SCH (10:45)
[2017-10-21] MEDS ORDERED: chlordiazePOXIDE HCL 10 MG CAPSULE PO SCH (17:00)
== END 2017-10-21 11:55 | disposition other institution (70) | DRG 773 ==
LOC: YASAS 11:31 → Y6N 13:11
PROVIDERS: ADMIT Surgery; ATTEND Surgery
PROC: HZ2ZZZZ Detoxification Services for Substance Abuse Treatment (ICD-10-PCS; principal; 2017-10-18)
DX: F10.230 Alcohol dependence with withdrawal, uncomplicated (principal); F11.20 Opioid dependence, uncomplicated; F14.20 Cocaine dependence, uncomplicated; F17.210 Nicotine dependence, cigarettes, uncomplicated; F20.89 Other schizophrenia; G47.9 Sleep disorder, unspecified; N40.0 Benign prostatic hyperplasia without lower urinary tract symptoms; R63.4 Abnormal weight loss; Z68.20 Body mass index [BMI] 20.0-20.9, adult; Z91.5 Personal history of self-harm; Z59.0 Homelessness
CPT/HCPCS: 36415; 80053; 81003; 85027; 86593; 87389; 93005; 93010

== ENCOUNTER 2017-10-21 12:01 | Inpatient (IN) | payer OTHER ==
[2017-10-21 13:47] VITALS: BMI 21.7
--- NOTE | 2017-10-21 14:14 | HP ---
[facility] Rehab Assess/Revision - Admission History Admitted to Rehab from: [facility] Date of Admission to Rehab: 10/11/17 - Vital signs Vital Signs: Vital Signs Period Temp Pulse Resp BP Sys/Gallagher Pulse Ox Last 24 Hr 97.6 F 97 18 130/75 - Findings Detox History & Physical reviewed: Yes Concur with findings: Yes Comments/Additional Findings: for rehab as protocol Inpatient Rehab Admission - Initial Determination Are CD services needed?: Yes Free of communicable disease: Yes Not in need of hospitalization: Yes - Rehab Admission Criteria Previous failed treatment: Yes Poor recovery environment: Yes Comorbidities: Yes Lacks judgement: No Patient is meeting Inpatient Rehab admission criteria:: Yes
[2017-10-21] MEDS ORDERED: MAGNESIUM HYDROX 2400MG/30ML ORAL SUSPENSION 30 ML CUP PO PRN (14:18)
[2017-10-21] MEDS ORDERED: ACETAMINOPHEN 325 MG TABLET (FP) PO PRN (14:18)
[2017-10-21] MEDS ORDERED: MAG HYDROX/AL HYDROX/SIMETH 30 ML UNIT-DOSE CUP PO PRN (14:18)
[2017-10-21] MEDS ORDERED: MAGNESIUM CITRATE 300 ML BOTTLE PO PRN (14:18)
[2017-10-21] MEDS ORDERED: hydrOXYzine PAMOATE 25 MG CAPSULE (FP) PO PRN (14:18)
[2017-10-21] MEDS ORDERED: LOPERAMIDE HCL 2 MG CAPSULE PO PRN (14:18)
[2017-10-21] MEDS ORDERED: MENTHOL/PHENOL 1 EACH UD MM PRN (14:18)
[2017-10-21] MEDS ORDERED: IBUPROFEN 400 MG TABLET (FP) PO PRN (14:18)
[2017-10-21] MEDS ORDERED: guaiFENesin/D-METHORPHAN HB 10 ML UNIT-DOSE CUPS PO PRN (14:18)
[2017-10-21] MEDS ORDERED: P-EPHED 60MG/TRIPROLIDI 2.5MG TABLET PO PRN (14:18)
[2017-10-21] MEDS ORDERED: MELATONIN 5 MG TABLETS PO PRN (22:00)
[2017-10-21] MEDS: risperiDONE 2 MG TABLET PO SCH (22:10)
[2017-10-21] MEDS: THIAMINE HCL 100 MG TABLET (FP) PO SCH (22:10)
--- NOTE | 2017-10-22 06:23 | HP ---
Psychiatrist Admission - Data Date of interview: 10/22/17 Admission source: Self-referred Identifying data: This is the second [facility] admission for this 57 years old Black male living as , father of a 15 years old daughter, unemployed on SSI, homeless Medical History: Unremarkable Psychiatric History: Patient is very uncooperative, guarded and not forthcoming with providing information. Most of the historical narrative is extracted from previous entries. He was diagnosed with Schizophrenia in 1994 while in [facility]. Reported history of one previous psychiatric hospitalization in 2010. Reports non-compliance with OPD care. Claims that he attends [facility] but he has not been there for for the past 4-5 months. Reports being prescribed Risperdal 2 mg po BID and want to take it during this admission course. Reports history of one suicidal attempt by cutting his left arm in May 2017. Reports feeling irritable and sleeping poorly Physical/Sexual Abuse/Trauma History: Declined to provide answer Additional Comment: Claims that he was in [facility] as a short answer Vital Signs: Vital Signs - 24 hr 10/21/17 10/22/17 10/22/17 13:30 00:30 03:30 Temperature 97.6 F Pulse Rate 97 H Respiratory 18 18 Rate Blood Pressure 130/75 Allergies/Adverse Reactions: Allergies Allergy/AdvReac Type Severity Reaction Status Date / Time No Known Drug Allergies Allergy Verified 10/18/17 12:00 lactose AdvReac Intermediate Vomiting Verified 10/18/17 12:00 Date of last physical exam: 10/18/17 Concur with the findings of this exam: Yes - Substance Abuse/Tx History Hx Alcohol Use: Yes Hx Substance Use: Yes Substance Use Type: Alcohol (Started drinking alcohol at age 18, consumes 4 pints of vodka & 6 cans of beer daily. Last drank on 10/18/17), Cocaine (Started smoking crack cocaine at age 20, consumes 10 bags($100 worth)daily. Last smoked on 10/16/17) Hx Substance Use Treatment: Yes (3 previous inpt detox & one inpt rehab admissions @ [facility]) Mental Status Exam - Mental Status Exam Alert and Oriented to: Time, Place, Person Cognitive Function: Fair Patient Appearance: Disheveled Mood: Irritable Affect: Appropriate Patient Behavior: Uncooperative Speech Pattern: Clear Voice Loudness: Normal Thought Process: Intact, Goal Oriented Thought Disorder: Not Present Hallucinations: Denies Suicidal Ideation: Denies Homicidal Ideation: Denies Sleep: Poorly Appetite: Poor Muscle strength/Tone: Normal Gait/Station: Normal Psychiatric Findings - Problem List ([place] 1, 2,3) (1) Alcohol dependence Current Visit: No Status: Acute Qualifiers: (2) Cocaine dependence Current Visit: No Status: Acute Qualifiers: (3) Schizophrenia Current Visit: No Status: Chronic Qualifiers: Comment: Self-report.On medications (confirmed at [facility] # [id number]).Patient is affiliated with [facility] for psychiatric OPD care. (4) Substance induced mood disorder Current Visit: Yes Status: Acute (5) Substance-induced sleep disorder Current Visit: Yes Status: Acute (6) BPH (benign prostatic hyperplasia) Current Visit: No Status: Chronic Qualifiers: - Initial Treatment Plan Initial Treatment Plan: 1) Start Risperdal 2 mg po BID. 2) Monitor progress
[2017-10-22] MEDS: risperiDONE 2 MG TABLET PO SCH ×2 (10:22→21:35)
[2017-10-22] MEDS: PRENATAL VITAMINS W/ FOLIC ACID TABLET (FP) PO SCH (10:22)
[2017-10-22] MEDS: THIAMINE HCL 100 MG TABLET (FP) PO SCH (21:35)
[2017-10-23] MEDS: risperiDONE 2 MG TABLET PO SCH ×2 (09:55→21:54)
[2017-10-23] MEDS: PRENATAL VITAMINS W/ FOLIC ACID TABLET (FP) PO SCH (09:55)
[2017-10-23] MEDS: THIAMINE HCL 100 MG TABLET (FP) PO SCH (21:54)
[2017-10-24] MEDS: risperiDONE 2 MG TABLET PO SCH ×2 (10:25→21:56)
[2017-10-24] MEDS: PRENATAL VITAMINS W/ FOLIC ACID TABLET (FP) PO SCH (10:25)
[2017-10-24] MEDS: THIAMINE HCL 100 MG TABLET (FP) PO SCH (21:56)
[2017-10-25] MEDS: PRENATAL VITAMINS W/ FOLIC ACID TABLET (FP) PO SCH (10:07)
[2017-10-25] MEDS: risperiDONE 2 MG TABLET PO SCH ×2 (10:07→21:41)
--- NOTE | 2017-10-25 15:08 | PN ---
S Progress Note Note: PATIENT C/O BILATERAL SHOULDER PAIN. DENIES RECENT INJURY TO SHOULDERS AND ARMS. PAIN NON-RADIATING. LEVEL 4/10. DULL ACHE. A/P: BILATERAL UPPER EXTREMITIES WITH FULL ROM, NO SWELLING OR REDNESS. WILL ORDER LIDOCAINE PATCH 5 % AND CONTINUE TO MONITOR CLINICALLY. Vital Signs Temperature 98.3 F 10/25/17 07:11 Pulse Rate 95 H 10/25/17 07:11 Respiratory Rate 18 10/25/17 07:11 Blood Pressure 109/70 10/25/17 07:11 O2 Sat by Pulse Oximetry (%)
[2017-10-25] MEDS ORDERED: LIDOCAINE 5% TOPICAL PATCH TP SCH (15:15)
[2017-10-25] MEDS: LIDOCAINE 5% TOPICAL PATCH TP SCH (16:41)
[2017-10-25] MEDS: THIAMINE HCL 100 MG TABLET (FP) PO SCH (21:41)
[2017-10-25] MEDS: LIDOCAINE PATCH REMOVAL MC SCH (22:00)
[2017-10-26] MEDS: PRENATAL VITAMINS W/ FOLIC ACID TABLET (FP) PO SCH (09:51)
[2017-10-26] MEDS: risperiDONE 2 MG TABLET PO SCH ×2 (09:51→21:52)
[2017-10-26] MEDS: LIDOCAINE 5% TOPICAL PATCH TP SCH (09:52)
[2017-10-26] MEDS: THIAMINE HCL 100 MG TABLET (FP) PO SCH (21:52)
[2017-10-26] MEDS: LIDOCAINE PATCH REMOVAL MC SCH (23:28)
[2017-10-27] MEDS: risperiDONE 2 MG TABLET PO SCH ×2 (10:47→21:12)
[2017-10-27] MEDS: LIDOCAINE 5% TOPICAL PATCH TP SCH (10:47)
[2017-10-27] MEDS: PRENATAL VITAMINS W/ FOLIC ACID TABLET (FP) PO SCH (10:47)
[2017-10-27] MEDS: THIAMINE HCL 100 MG TABLET (FP) PO SCH (21:11)
[2017-10-27] MEDS: LIDOCAINE PATCH REMOVAL MC SCH (21:12)
[2017-10-28 06:58] VITALS: BP 104/63; PULSE 78; TEMP 98.2
[2017-10-28] MEDS: risperiDONE 2 MG TABLET PO SCH (09:54)
[2017-10-28] MEDS: PRENATAL VITAMINS W/ FOLIC ACID TABLET (FP) PO SCH (09:54)
[2017-10-28] MEDS: LIDOCAINE 5% TOPICAL PATCH TP SCH (09:55)
--- NOTE | 2017-10-28 13:47 | PN ---
Psychiatric Progress Note Vital Signs: Vital Signs Period Temp Pulse Resp BP Sys/Gallagher Pulse Ox Last 24 Hr 98.2 F 78 18-18 104/63 Date of Session: 10/28/17 Chief Complaint:: Discharge Note HPI: Patient addressing Alcohol and Cocaine Dependence comorbid with Schizophrenia, Substance-Induced Mood Disorder and Substance-induced Sleep Disorder ROS: BPH Current Medications: Active Medications Generic Name Dose Route Start Last Admin Trade Name Freq PRN Reason Stop Dose Admin Acetaminophen 650 mg 10/21/17 14:18 Tylenol - PO Q4H PRN FEVER Al Hydroxide/Mg Hydroxide 30 ml 10/21/17 14:18 Mylanta Oral Suspension - PO Q6H PRN DYSPEPSIA Eucalyptus/Menthol/Phenol/Sorbitol 1 each 10/21/17 14:18 Cepastat Lozenge - MM Q4H PRN SORE THROAT Guaifenesin 10 ml 10/21/17 14:18 10/27/17 21:11 Robitussin Dm - PO 10 ml Q6H PRN Administration COUGH Hydroxyzine Pamoate 25 mg 10/21/17 14:18 Vistaril - PO Q4H PRN AGITATION Ibuprofen 400 mg 10/21/17 14:18 10/27/17 04:17 Motrin - PO 400 mg Q6H PRN Administration Pain Level 4-6 Lidocaine 2 patch 10/25/17 15:15 10/28/17 09:55 Lidoderm Patch - TP 2 patch DAILY RICHY Administration Loperamide HCl 4 mg 10/21/17 14:18 Imodium - PO Q6H PRN DIARRHEA Magnesium Citrate 300 ml 10/21/17 14:18 Citroma - PO Q48H PRN CONSTIPATION Magnesium Hydroxide 30 ml 10/21/17 14:18 Milk Of Magnesia - PO DAILY PRN CONSTIPATION Melatonin 5 mg 10/21/17 22:00 Melatonin PO HS PRN INSOMNIA Miscellaneous 1 each 10/25/17 22:00 10/27/17 21:12 Lidoderm Patch Removal MC 1 each DAILY@2200 RICHY Administration Multivit/Folic Acid/Iron 1 tab 10/22/17 10:00 10/28/17 09:54 Vitamins (Sjr) - PO 1 tab DAILY RICHY Administration Pseudoephedrine/Triprolidine 1 combo 10/21/17 14:18 Actifed - PO TID PRN NASAL CONGESTION Risperidone 2 mg 10/21/17 22:00 10/28/17 09:54 Risperdal - PO 2 mg BID RICHY Administration Thiamine HCl 100 mg 10/21/17 22:00 10/27/17 21:11 Vitamin B1 - PO 100 mg HS RICHY Administration Current Side Effect: No Lab tests ordered: Yes Lab tests reviewed: Yes Provider note:: Patient has completed this program today. He has partially met his treatment goals and will continue to address his issues in attending AA/NA. 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 He responded well to Risperdal 2 mg po BID. Script for 30 days supply of medication is electronically transmitted to [facility] at [address] [place] [address]. He is stable for discharge today Total face to face time:: 35 Mental Status Exam - Mental Status Exam Alert and Oriented to: Time, Place, Person Cognitive Function: Fair Mood: Hopeful, Euthymic Affect: Appropriate Patient Behavior: Cooperative Speech Pattern: Clear Voice Loudness: Normal Thought Process: Intact, Goal Oriented Thought Disorder: Not Present Hallucinations: Denies Suicidal Ideation: Denies Homicidal Ideation: Denies Insight/Judgement: Fair Sleep: Fair Appetite: Good Muscle strength/Tone: Normal Gait/Station: Normal Psychiatric Treatment Plan - Problem List (1) Alcohol dependence Qualifiers: (2) Cocaine dependence Qualifiers: (3) Schizophrenia Qualifiers: Comment: Self-report.On medications (confirmed at [facility] # [id number]).Patient is affiliated with [facility] for psychiatric OPD care. (6) BPH (benign prostatic hyperplasia) Qualifiers: Initial treatment plan: Patient will be discharged tomorrow and will be attending AA/NA
== END 2017-10-28 13:50 | disposition home or self-care (01) | DRG 772 ==
LOC: YASAS 12:01 → Y3W 12:02
PROVIDERS: ADMIT Psychiatry & Neurology Psychiatry; ATTEND Psychiatry & Neurology Psychiatry
PROC: HZ42ZZZ Group Counseling for Substance Abuse Treatment, Cognitive-Behavioral (ICD-10-PCS; principal; 2017-10-21)
DX: F11.20 Opioid dependence, uncomplicated (principal); F10.20 Alcohol dependence, uncomplicated; F14.20 Cocaine dependence, uncomplicated; F20.9 Schizophrenia, unspecified; F19.24 Other psychoactive substance dependence with psychoactive substance-induced mood disorder; F19.282 Other psychoactive substance dependence with psychoactive substance-induced sleep disorder; N40.0 Benign prostatic hyperplasia without lower urinary tract symptoms; M25.511 Pain in right shoulder; M25.512 Pain in left shoulder; Z59.0 Homelessness

== ENCOUNTER 2018-09-03 13:14 | Inpatient (IN) | payer OTHER ==
[2018-09-03 13:35] VITALS: BMI 20.3
--- NOTE | 2018-09-03 14:01 | HP ---
CIWA Score Nausea/Vomitin-Mild Nausea/No Vomiting Muscle Tremors: 4-Moderate,w/Arms Extend Anxiety: 4-Mod. Anxious/Guarded Agitation: 1-Slight > Activity Paroxysmal Sweats: No Perspiration Orientation: 0-Oriented Tacttile Disturbances: 1-Very Mild Itch/Numbness Auditory Disturbances: 0-None Visual Disturbances: 1-Very Mild Sensitivity Headache: 2-Mild CIWA-Ar Total Score: 14 - Admission Criteria OASAS Guidelines: Admission for Medically Managed Detox: Requires at least one of the followin. CIWA greater than 12 2. Seizures within the past 24 hours 3. Delirium tremens within the past 24 hours 4. Hallucinations within the past 24 hours 5. Acute intervention needed for co occurring medical disorder 6. Acute intervention needed for co occurring psychiatric disorder 7. Severe withdrawal that cannot be handled at a lower level of care (continued vomiting, continued diarrhea, abnormal vital signs) requiring intravenous medication and/or fluids 8. Patient presents the following: CIWA greater than 12 Admission Criteria Met: Admission criteria met Admission ROS S - HPI Chief Complaint: I started back drinking, I want my life to get back together Allergies/Adverse Reactions: Allergies Allergy/AdvReac Type Severity Reaction Status Date / Time Penicillins Allergy Severe Rash Verified 09/03/18 13:23 lactose AdvReac Intermediate Vomiting Verified 10/18/17 12:00 History of Present Illness: 58 yo gentleman here for detox from alcohol, also using crack. No seizures but has had black outs. Was last here 10/21/17 - did well for a while then relapsed about two months ago. He is c/o left shoulder pain and numbness - difficulty raising left arm - good pulse, normal color - likely nerve impingement or torn rotator cuff - states he was in [facility]' ED two days ago as he thought he was having a stroke but told he wasn't. Exam Limitations: Clinical Condition - Ebola screening Have you traveled outside of the country in the last 21 days: No (N) Have you had contact with anyone from an Ebola affected area: No Do you have a fever: No - Review of Systems Constitutional: Loss of Appetite, Malaise, Night Sweats, Weakness, Unintentional Wgt. Loss EENT: reports: Blurred Vision Respiratory: reports: No Symptoms reported Cardiac: reports: Chest Tightness GI: reports: Nausea, Poor Appetite, Poor Fluid Intake, Indigestion, Abdominal cramping : reports: Frequency Musculoskeletal: reports: Joint Pain (left shoulder), Muscle Weakness, Joint Stiffness (left shoulder) Integumentary: reports: Dryness Neuro: reports: Headache, Numbness (left arm), Tremors, Weakness Endocrine: reports: No Symptoms Reported Hematology: reports: No Symptoms Reported Psychiatric: reports: Judgement Intact, Mood/Affect Appropiate, Anxious Other Systems: Reviewed and Negative Patient History - Patient Medical History Hx Anemia: No Hx Asthma: No Hx Chronic Obstructive Pulmonary Disease (COPD): No Hx Cancer: No Hx Cardiac Disorders: No Hx Congestive Heart Failure: No Hx Hypertension: No Hx Hypercholesterolemia: No Hx Pacemaker: No HX Cerebrovascular Accident: No Hx Seizures: No Hx Dementia: No Hx Diabetes: No Hx Gastrointestinal Disorders: No Hx Liver Disease: No Hx Genitourinary Disorders: No Hx Sexually Transmitted Disorders: No Hx Renal Disease (ESRD): No Hx Thyroid Disease: No Hx Human Immunodeficiency Virus (HIV): No (last tested three weeks ago, negtive ) Hx Hepatitis C: No Hx Depression: Yes (cutting on left arm (not suicidal)) Hx Suicide Attempt: No (denies) Hx Bipolar Disorder: No Hx Schizophrenia: Yes (history of meds, hospitalizations last about a week ago at [facility]) Other Medical History: shoulder pain - arthritis/shoulder impingement - Patient Surgical History Past Surgical History: No Hx Neurologic Surgery: No Hx Cataract Extraction: No Hx Cardiac Surgery: No Hx Lung Surgery: No Hx Breast Surgery: No Hx Breast Biopsy: No Hx Abdominal Surgery: Yes (two inguinal hernia repair 1979) Hx Appendectomy: No Hx Cholecystectomy: No Hx Genitourinary Surgery: No Hx Section: No Hx Orthopedic Surgery: No Anesthesia Reaction: No - PPD History Previous Implant?: Yes Documented Results: Negative w/proof Implanted On Prior R Admission?: Yes Date: 10/20/17 Results: 0 mm PPD to be Administered?: No - Reproductive History Patient is a Female of Child Bearing Age (11 -55 yrs old): No - Smoking Cessation Smoking history: Current some day smoker Have you smoked in the past 12 months: Yes Aproximately how many cigarettes per day: 2 Cigars Per Day: 0 Hx Chewing Tobacco Use: No Initiated information on smoking cessation: Yes 'Breaking Loose' booklet given: 09/03/18 (give on floor) - Substance & Tx. History Hx Alcohol Use: Yes Hx Substance Use: Yes Substance Use Type: Alcohol, Cocaine Hx Substance Use Treatment: Yes (detox, rehab) - Substances abused Alcohol Substance route: Oral Frequency: Daily Amount used: two 6 packs 24 oz beer, 1/5 liquor Age of first use: 18 Date of last use: 09/02/18 Cocaine Substance route: Smoking Frequency: Daily Amount used: $200-300 Age of first use: 24 Date of last use: 09/02/18 Family Disease History - Family Disease History Family Disease History: Other: Father (, homocide ), Mother (alive and well ), Sister (four - healthy - living ), Daughter (one - age 16 - healthy) Admission Physical Exam S - Vital Signs Vital Signs: Vital Signs - 24 hr 09/03/18 13:21 Temperature 98.4 F Pulse Rate 87 Respiratory 16 Rate Blood Pressure 87/58 L - Physical General Appearance: Yes: Nourished, Appropriately Dressed, Moderate Distress, Tremorous, Anxious HEENTM: Yes: EOMI, Hearing grossly Normal, Normocephalic, Normal Voice, Pharynx Normal Respiratory: Yes: Normal Breath Sounds, No Respiratory Distress Neck: Yes: No masses,lesions,Nodules, Supple Breast: Yes: Breast Exam Deferred Cardiology: Yes: Regular Rhythm, Regular Rate Abdominal: Yes: Flat, Soft Genitourinary: Yes: Frequency Back: Yes: CVA Tenderness (L) Musculoskeletal: Yes: Joint Stiffness, Other (left shoulder with reduced ROM - numbness x several weeks states police broke his arm (?unclear when) and never got him proper care) Extremities: Yes: Normal Inspection, Non-Tender, Other Neurological: Yes: Fully Oriented, Alert, Normal Mood/Affect, Normal Response Integumentary: Yes: Normal Color, Warm, Other (linear cutting scars left fore- arm "whenever someone I think is a friend becomes an enemy I cut myself') Lymphatic: Yes: Within Normal Limits - Diagnostic (1) Alcohol dependence with withdrawal Current Visit: Yes Status: Acute Qualifiers: Complication of substance-induced condition: uncomplicated Qualified Code(s ): F10.230 - Alcohol dependence with withdrawal, uncomplicated (2) Cocaine dependence Current Visit: Yes Status: Acute Qualifiers: (3) Impingement syndrome, shoulder, left Current Visit: Yes Status: Acute Cleared for Admission [facility] - Detox or Rehab [facility] Level of Care: Medically Managed Detox Regimen/Protocol: Librium Inpatient Rehab Admission - Rehab Decision to Admit Inpatient rehab admission?: No
[2018-09-03] MEDS ORDERED: MAG HYDROX/AL HYDROX/SIMETH 30 ML UNIT-DOSE CUP PO PRN (14:13)
[2018-09-03] MEDS ORDERED: hydrOXYzine PAMOATE 25 MG CAPSULE (FP) PO PRN (14:13)
[2018-09-03] MEDS ORDERED: MAGNESIUM HYDROX 2400MG/30ML ORAL SUSPENSION 30 ML CUP PO PRN (14:13)
[2018-09-03] MEDS ORDERED: BISMUTH SUBSALICYLATE 524 MG/30 ML UD PO PRN (14:13)
[2018-09-03] MEDS ORDERED: MELATONIN 5 MG TABLETS PO PRN (14:13)
[2018-09-03] MEDS ORDERED: ACETAMINOPHEN 325 MG TABLET (FP) PO PRN (14:13)
[2018-09-03] MEDS ORDERED: MENTHOL/PHENOL 1 EACH UD MM PRN (14:13)
[2018-09-03] MEDS ORDERED: chlordiazePOXIDE HCL 25 MG CAPSULE PO PRN (14:13)
[2018-09-03] MEDS ORDERED: MAGNESIUM CITRATE 300 ML BOTTLE PO PRN (14:13)
[2018-09-03] MEDS ORDERED: METHOCARBAMOL 500 MG TABLET PO PRN (14:13)
[2018-09-03] MEDS ORDERED: chlordiazePOXIDE HCL 25 MG CAPSULE PO ONE (14:30)
[2018-09-03] MEDS: LIDOCAINE 5% TOPICAL PATCH TP SCH (15:33)
[2018-09-03] MEDS: chlordiazePOXIDE HCL 25 MG CAPSULE PO SCH ×2 (17:59→23:30)
[2018-09-03] MEDS: THIAMINE HCL 100 MG TABLET (FP) PO SCH (22:47)
[2018-09-03] MEDS: risperiDONE 2 MG TABLET PO SCH (22:47)
[2018-09-03] MEDS: IBUPROFEN 400 MG TABLET (FP) PO PRN (22:47)
[2018-09-03] MEDS: LIDOCAINE PATCH REMOVAL MC SCH (23:29)
[2018-09-04] MEDS: chlordiazePOXIDE HCL 25 MG CAPSULE PO SCH ×3 (05:46→19:06)
[2018-09-04] MEDS: LIDOCAINE 5% TOPICAL PATCH TP SCH (10:19)
[2018-09-04] MEDS: risperiDONE 2 MG TABLET PO SCH (10:21)
[2018-09-04] MEDS: PRENATAL VITAMINS W/ FOLIC ACID TABLET (FP) PO SCH (10:21)
[2018-09-04 10:54] LABS: ALBUMIN 3.5 g/dl (3.4-5.0); BILIRUBIN,TOTAL 0.5 mg/dL (0.2-1); CALCIUM 9.2 mg/dL (8.5-10.1); POTASSIUM 4.2 mmol/L (3.5-5.1); TOT PROT 6.7 g/dl (6.4-8.2)
[2018-09-04 10:55] LABS: HEMATOCRIT 36.3 % (35.4-49); HEMOGLOBIN 12.1 GM/dL (11.7-16.9); MCH 30.5 pg (25.7-33.7); MCHC 33.4 g/dl (32.0-35.9); MEAN CELL VOLUME 91.3 fl (80-96); MEAN PLT VOLUME 7.6 fl (7.5-11.1); PLATELET COUNT 326 K/MM3 (134-434); RBC 3.97 M/mm3 (4.00-5.60); RDW 15.4 % (11.9-15.9); WHITE BLOOD COUNT 3.2 K/mm3 (4.0-10.0)
--- NOTE | 2018-09-04 11:40 | CONSULT ---
[facility] Psychiatric Consult - Data Date of interview: 09/04/18 Admission source: Self-referred Identifying data: Mr Cruz is a 58 years old Black male living as , father of a 16 years daughter, unemployed receiving SSI, homeless seeking detox treatment for alcohol and cocaine Substance Abuse History: Reports history of alcohol and cocainne use. Refer to addiction counselor's summary for further information Medical History: Significant for arthritis of both shoulders, benign prostatic hypertrophy and chronic shoulder pain (left). Smokes 2 cigarettes daily Psychiatric History: Reports that he was diagnosed with Schizophrenia in 1994 while in residential. Reported 3-4 previous psychiatric hospitalizations to various facilities including [facility], [facility] and most recently in 2018 to [facility]. Reports non-compliance with OPD care. Claims that he currently sees a psychiatrist at a clinic in [place], [place] and he is prescribed Risperdal 2 mg/bid and Buspar 30 mg/hs. Reports history of one suicidal attempt by cutting his left arm in May 2017. At present,reports feeling irritable and sleeping poorly Physical/Sexual Abuse/Trauma History: Denies Mental Status Exam - Mental Status Exam Alert and Oriented to: Time, Place, Person Cognitive Function: Fair Patient Appearance: Disheveled Mood: Irritable Affect: Appropriate Patient Behavior: Cooperative (superficially) Speech Pattern: Clear Voice Loudness: Normal Thought Process: Intact, Goal Oriented Thought Disorder: Not Present Hallucinations: Denies Suicidal Ideation: Denies Homicidal Ideation: Denies Insight/Judgement: Poor Sleep: Poorly Appetite: Good Muscle strength/Tone: Normal Gait/Station: Normal Psychiatric Findings - Problem List ([place] 1, 2,3) (1) Schizophrenia Current Visit: No Status: Chronic Qualifiers: Comment: Self-report.On medications (confirmed at [facility] # [id number]).Patient is affiliated with [facility] for psychiatric OPD care. (2) Substance induced mood disorder Current Visit: Yes Status: Acute (3) Substance-induced sleep disorder Current Visit: Yes Status: Acute (4) Alcohol dependence with withdrawal Current Visit: Yes Status: Acute Qualifiers: Complication of substance-induced condition: uncomplicated Qualified Code(s ): F10.230 - Alcohol dependence with withdrawal, uncomplicated (5) Cocaine dependence Current Visit: Yes Status: Acute Qualifiers: (6) Nicotine dependence Current Visit: No Status: Chronic Qualifiers: (7) BPH (benign prostatic hyperplasia) Current Visit: No Status: Chronic Qualifiers: (8) Shoulder arthritis Current Visit: No Status: Chronic - Initial Treatment Plan Initial Treatment Plan: 1) Continue Risperdal 2 mg po BID. 2) Continue inpatient detoxification
[2018-09-04] MEDS ORDERED: busPIRone HCL 5 MG TABLET PO ONE (12:20)
--- NOTE | 2018-09-04 15:20 | PN ---
[facility] CIWA - CIWA Score Nausea/Vomitin-Mild Nausea/No Vomiting Muscle Tremors: 3 Anxiety: 3 Agitation: 3 Paroxysmal Sweats: 3 Orientation: 0-Oriented Tacttile Disturbances: 0-None Auditory Disturbances: 0-None Visual Disturbances: 0-None Headache: 0-None Present CIWA-Ar Total Score: 13 S Progress Note (SOAP) Subjective: Body ache, interrupted sleep Objective: 09/04/18 15:16 Last Vital Signs Temp Pulse Resp BP Pulse Ox 97.1 F L 100 H 16 102/68 09/04/18 13:44 09/04/18 13:44 09/04/18 13:44 09/04/18 13:44 Laboratory Tests 09/04/18 09/04/18 09/04/18 07:40 07:40 07:40 WBC 3.2 L RBC 3.97 L Hgb 12.1 Hct 36.3 MCV 91.3 MCH 30.5 MCHC 33.4 RDW 15.4 Plt Count 326 MPV 7.6 Sodium 142 Potassium 4.2 Chloride 105 Carbon Dioxide 32 Anion Gap 5 L BUN 16 Creatinine 1.0 Est GFR (CKD-EPI)AfAm 97.08 Est GFR (CKD-EPI)NonAf 83.76 Random Glucose 84 Calcium 9.2 Total Bilirubin 0.5 AST 16 ALT 24 Alkaline Phosphatase 42 L Total Protein 6.7 Albumin 3.5 RPR Titer Nonreactive Labs reviewed Assessment: 09/04/18 15:19 Withdrawal symptoms Plan: Continue detox Encouraged PO water intake
[2018-09-05] MEDS: THIAMINE HCL 100 MG TABLET (FP) PO SCH ×2 (00:10→22:42)
[2018-09-05] MEDS: risperiDONE 2 MG TABLET PO SCH ×3 (00:10→22:41)
[2018-09-05] MEDS: LIDOCAINE PATCH REMOVAL MC SCH ×2 (00:10→22:41)
[2018-09-05] MEDS: chlordiazePOXIDE HCL 25 MG CAPSULE PO SCH ×3 (00:11→10:10)
--- NOTE | 2018-09-05 10:04 | PN ---
[facility] CIWA - CIWA Score Nausea/Vomitin-No Nausea/No Vomiting Muscle Tremors: 3 Anxiety: 2 Agitation: 2 Paroxysmal Sweats: 2 Orientation: 0-Oriented Tacttile Disturbances: 0-None Auditory Disturbances: 0-None Visual Disturbances: 0-None Headache: 0-None Present CIWA-Ar Total Score: 9 BHS COWS - Scale Resting Pulse: 1= DC 81-100 Sweatin=Flushed/Facial Moisture Restless Observation: 1= Difficult to Sit Still Pupil Size: 0= Normal to Room Light Bone or Joint Aches: 0= None Runny Nose/ Eye Tearin= Nasal Congestion GI Upset > 30mins: 1= Stomach Cramp Tremor Observation of Outstretched Hands: 1= Tremor [place], Not Seen Yawning Observation: 2= >3x During Session Anxiety or Irritability: 1=Feels Anxious/Irritable Goose Flesh Skin: 0=Smooth Skin COWS Score: 10 [facility] Progress Note (SOAP) Subjective: sweats shakes interrupted sleep body aches Objective: 09/05/18 10:08 Vital Signs Temperature 97.9 F 09/05/18 09:15 Pulse Rate 87 09/05/18 09:15 Respiratory Rate 16 09/05/18 09:15 Blood Pressure 100/57 L 09/05/18 09:15 O2 Sat by Pulse Oximetry (%) Laboratory Tests 09/04/18 09/04/18 09/04/18 07:40 07:40 07:40 WBC 3.2 L RBC 3.97 L Hgb 12.1 Hct 36.3 MCV 91.3 MCH 30.5 MCHC 33.4 RDW 15.4 Plt Count 326 MPV 7.6 Sodium 142 Potassium 4.2 Chloride 105 Carbon Dioxide 32 Anion Gap 5 L BUN 16 Creatinine 1.0 Est GFR (CKD-EPI)AfAm 97.08 Est GFR (CKD-EPI)NonAf 83.76 Random Glucose 84 Calcium 9.2 Total Bilirubin 0.5 AST 16 ALT 24 Alkaline Phosphatase 42 L Total Protein 6.7 Albumin 3.5 RPR Titer Nonreactive aaox3 ambulating no acute distress Assessment: 09/05/18 10:09 withdrawal sx Plan: continue detox increase fluids
[2018-09-05] MEDS: LIDOCAINE 5% TOPICAL PATCH TP SCH (10:10)
[2018-09-05] MEDS: PRENATAL VITAMINS W/ FOLIC ACID TABLET (FP) PO SCH (10:10)
[2018-09-05] MEDS ORDERED: chlordiazePOXIDE HCL 10 MG CAPSULE PO PRN (17:00)
[2018-09-05] MEDS: chlordiazePOXIDE HCL 10 MG CAPSULE PO SCH ×2 (17:09→22:42)
[2018-09-05] MEDS: IBUPROFEN 400 MG TABLET (FP) PO PRN (17:10)
[2018-09-06] MEDS: chlordiazePOXIDE HCL 10 MG CAPSULE PO SCH (05:52)
[2018-09-06 07:14] VITALS: TEMP 97.7
[2018-09-06 09:30] VITALS: BP 114/70; PULSE 97
--- NOTE | 2018-09-06 09:46 | DS ---
[facility] Detox Discharge Summary Admission Date: 09/03/18 Discharge Date: 09/06/18 - History Present History: Alcohol Dependence, Cocaine Dependence, Opioid Dependence - Physical Exam Results Vital Signs: Vital Signs Temperature 97.7 F 09/06/18 09:29 Pulse Rate 97 H 09/06/18 09:29 Respiratory Rate 17 09/06/18 09:29 Blood Pressure 114/70 09/06/18 09:29 O2 Sat by Pulse Oximetry (%) - Treatment Hospital Course: Detox Protocol Followed, Detoxed Safely, Responded well, Discharged Condition Good, Rehab Referral Accepted - Medication Discharge Medications: Ambulatory Orders Buspirone HCl [Buspar -] 30 mg PO HS 09/03/18 Risperidone [Risperdal -] 2 mg PO BID 09/03/18 - Diagnosis (1) Alcohol dependence with withdrawal Current Visit: Yes Status: Chronic Qualifiers: Complication of substance-induced condition: uncomplicated Qualified Code(s ): F10.230 - Alcohol dependence with withdrawal, uncomplicated (2) Cocaine dependence Current Visit: Yes Status: Chronic Qualifiers: Substance use status: uncomplicated (3) Impingement syndrome, shoulder, left Current Visit: Yes Status: Acute (4) Substance induced mood disorder Current Visit: Yes Status: Acute (5) Substance-induced sleep disorder Current Visit: Yes Status: Acute (6) Insomnia Current Visit: No Status: Acute (7) Substance-induced sleep disorder Current Visit: No Status: Acute (8) BPH (benign prostatic hyperplasia) Current Visit: Yes Status: Chronic Qualifiers: Lower urinary tract symptom presence: symptoms absent Qualified Code(s): N40.0 - Benign prostatic hyperplasia without lower urinary tract symptoms (9) Nicotine dependence Current Visit: Yes Status: Chronic Qualifiers: Nicotine product type: cigarettes Substance use status: uncomplicated Qualified Code(s): F17.210 - Nicotine dependence, cigarettes, uncomplicated (10) Schizophrenia Current Visit: No Status: Chronic Qualifiers: - AMA Did Patient Leave Against Medical Advice: No (pt declined aftercare; going home)
[2018-09-06] MEDS ORDERED: chlordiazePOXIDE HCL 10 MG CAPSULE PO SCH (17:00)
== END 2018-09-06 10:09 | disposition home or self-care (01) | DRG 774 ==
LOC: YASAS 13:14 → Y6N 14:13
PROVIDERS: ADMIT Surgery; ATTEND Surgery
PROC: HZ2ZZZZ Detoxification Services for Substance Abuse Treatment (ICD-10-PCS; principal; 2018-09-03)
DX: F10.230 Alcohol dependence with withdrawal, uncomplicated (principal); F14.20 Cocaine dependence, uncomplicated; F17.210 Nicotine dependence, cigarettes, uncomplicated; F20.9 Schizophrenia, unspecified; F19.24 Other psychoactive substance dependence with psychoactive substance-induced mood disorder; F19.282 Other psychoactive substance dependence with psychoactive substance-induced sleep disorder; G47.00 Insomnia, unspecified; M75.42 Impingement syndrome of left shoulder; N40.0 Benign prostatic hyperplasia without lower urinary tract symptoms; Z88.0 Allergy status to penicillin; Z59.0 Homelessness
CPT/HCPCS: 36415; 80053; 85027; 86593

== ENCOUNTER 2018-10-13 08:26 | Inpatient (IN) | payer OTHER ==
[2018-10-13 08:54] VITALS: BMI 19.3
--- NOTE | 2018-10-13 11:25 | HP ---
CIWA Score Nausea/Vomitin-No Nausea/No Vomiting Muscle Tremors: 4-Moderate,w/Arms Extend Anxiety: 4-Mod. Anxious/Guarded Agitation: 4-Moderately Restless Paroxysmal Sweats: No Perspiration Orientation: 2-Disoriented Date<2 days Tacttile Disturbances: 2-Mild Itch/Numbness/Burn Auditory Disturbances: 2-Mild Harshness/Frighten Visual Disturbances: 0-None Headache: 0-None Present CIWA-Ar Total Score: 18 - Admission Criteria OASAS Guidelines: Admission for Medically Managed Detox: Requires at least one of the followin. CIWA greater than 12 2. Seizures within the past 24 hours 3. Delirium tremens within the past 24 hours 4. Hallucinations within the past 24 hours 5. Acute intervention needed for co occurring medical disorder 6. Acute intervention needed for co occurring psychiatric disorder 7. Severe withdrawal that cannot be handled at a lower level of care (continued vomiting, continued diarrhea, abnormal vital signs) requiring intravenous medication and/or fluids 8. Admission ROS S - HPI Allergies/Adverse Reactions: Allergies Allergy/AdvReac Type Severity Reaction Status Date / Time Penicillins Allergy Severe Rash Verified 10/13/18 08:45 lactose AdvReac Intermediate Vomiting Verified 10/13/18 08:45 History of Present Illness: pt here requesting detox from etoh use , reports 12-pk beer every 2-3 days , reports tremors if not drinking , denies seizures, + blackouts , denies falls while intoxicated " I can't remember " , latest use yesterday , current symptoms as above. cocaine : every 2 days tobacco : w/ NIKOLAI PMHX : left shoulder chronic pain , borderline DM pshx : brenda inguinal hernia psych : sad on RIsperdol , Buspar , latest taken 2 d ago . did not bring meds " I don't have any more " Exam Limitations: Clinical Condition - Ebola screening Have you traveled outside of the country in the last 21 days: No Have you had contact with anyone from an Ebola affected area: No Do you have a fever: No - Review of Systems Constitutional: Loss of Appetite, Unintentional Wgt. Loss (160 to 120 lbs in 6 mo 2/2 cocaine use) EENT: reports: No Symptoms Reported Respiratory: reports: No Symptoms reported Cardiac: reports: No Symptoms Reported, Other (per pt was told abnormal ekg 2/ 2 NIKOLAI , advised to stop using illicits .) GI: reports: Constipated, Poor Appetite : reports: No Symptoms Reported Musculoskeletal: reports: Joint Pain (left shoulder - chronic) Integumentary: reports: No Symptoms Reported Neuro: reports: See HPI, Tingling, Tremors Endocrine: reports: No Symptoms Reported Psychiatric: reports: Orientated x3, Agitated, Anxious Patient History - Patient Medical History Hx Anemia: No Hx Asthma: No Hx Chronic Obstructive Pulmonary Disease (COPD): No Hx Cancer: No Hx Cardiac Disorders: No Hx Congestive Heart Failure: No Hx Hypertension: No Hx Hypercholesterolemia: No Hx Pacemaker: No HX Cerebrovascular Accident: No Hx Seizures: No Hx Dementia: No Hx Diabetes: No Hx Gastrointestinal Disorders: No Hx Liver Disease: No Hx Genitourinary Disorders: No Hx Sexually Transmitted Disorders: No Hx Renal Disease (ESRD): No Hx Thyroid Disease: No Hx Human Immunodeficiency Virus (HIV): No (last tested three weeks ago, negtive ) Hx Hepatitis C: No Hx Depression: Yes Hx Suicide Attempt: No Hx Bipolar Disorder: No Hx Schizophrenia: Yes - Patient Surgical History Past Surgical History: No Hx Neurologic Surgery: No Hx Cataract Extraction: No Hx Cardiac Surgery: No Hx Lung Surgery: No Hx Breast Surgery: No Hx Breast Biopsy: No Hx Abdominal Surgery: Yes (two inguinal hernia repair 1979) Hx Appendectomy: No Hx Cholecystectomy: No Hx Genitourinary Surgery: No Hx Section: No Hx Orthopedic Surgery: No Anesthesia Reaction: No - PPD History Date: 10/20/17 Results: 0 mm - Smoking Cessation Smoking history: Current some day smoker Have you smoked in the past 12 months: Yes Aproximately how many cigarettes per day: 2 If you are a former smoker, when did you quit?: 4months ago Cigars Per Day: 0 Hx Chewing Tobacco Use: No Initiated information on smoking cessation: No - Substances abused Alcohol Substance route: Oral Frequency: 3-6 times per week Amount used: two 6 packs 24 oz beer, 1/5 liquor Age of first use: 18 Date of last use: 10/12/18 Cocaine Substance route: Smoking Frequency: 3-6 times per week Amount used: 2 dimes Age of first use: 24 Date of last use: 10/12/18 Family Disease History - Family Disease History Family Disease History: Other: Father (, homocide ), Mother (alive and well ), Sister (four - healthy - living ), Daughter (one - age 16 - healthy) Other Family History: uncle- DM w/ LE amputations Admission Physical Exam BHS - Vital Signs Vital Signs: Vital Signs - 24 hr 10/13/18 10/13/18 08:44 10:24 Temperature 98.3 F 98.3 F Pulse Rate 67 67 Respiratory 20 20 Rate Blood Pressure 99/67 99/67 - Physical General Appearance: Yes: Mild Distress, Irritable, Anxious HEENTM: Yes: EOMI, Normocephalic, Normal Voice Respiratory: Yes: Lungs Clear, Normal Breath Sounds, No Respiratory Distress, No Accessory Muscle Use Neck: Yes: No masses,lesions,Nodules, Trachea in good position Cardiology: Yes: Regular Rhythm, Regular Rate, S1, S2 Abdominal: Yes: Non Tender, Soft Musculoskeletal: Yes: Joint Stiffness (left shoulder) Extremities: Yes: Normal Range of Motion, Non-Tender Neurological: Yes: Fully Oriented, Alert, Motor Strength 5/5, Depressed Affect Integumentary: Yes: Warm - Diagnostic (1) Alcohol dependence with withdrawal Current Visit: Yes Status: Acute Qualifiers: Complication of substance-induced condition: uncomplicated Qualified Code(s ): F10.230 - Alcohol dependence with withdrawal, uncomplicated (2) Cocaine dependence Current Visit: Yes Status: Chronic Qualifiers: Substance use status: uncomplicated Qualified Code(s): F14.20 - Cocaine dependence, uncomplicated (3) Nicotine dependence Current Visit: No Status: Chronic Qualifiers: Nicotine product type: cigarettes Substance use status: uncomplicated Qualified Code(s): F17.210 - Nicotine dependence, cigarettes, uncomplicated Breathalyzer - Breathalyzer Breathalyzer: 0 Urine Drug Screen - Test Device Lot number: [id number] Expiration date: 08/02/20 - Control Is test valid?: Yes - Results Drug screen NEGATIVE: No Urine drug screen results: [facility]IRO-Cocaine Inpatient Rehab Admission - Rehab Decision to Admit Inpatient rehab admission?: No
[2018-10-13] MEDS ORDERED: MAGNESIUM HYDROX 2400MG/30ML ORAL SUSPENSION 30 ML CUP PO PRN (11:35)
[2018-10-13] MEDS ORDERED: MENTHOL/PHENOL 1 EACH UD MM PRN (11:35)
[2018-10-13] MEDS ORDERED: IBUPROFEN 400 MG TABLET (FP) PO PRN (11:35)
[2018-10-13] MEDS ORDERED: MAGNESIUM CITRATE 300 ML BOTTLE PO PRN (11:35)
[2018-10-13] MEDS ORDERED: MAG HYDROX/AL HYDROX/SIMETH 30 ML UNIT-DOSE CUP PO PRN (11:35)
[2018-10-13] MEDS ORDERED: hydrOXYzine HCL 25 MG TABLET (FP) PO PRN (11:35)
[2018-10-13] MEDS ORDERED: NICOTINE POLACRILEX 2 MG GUM BUC PRN (11:35)
[2018-10-13] MEDS ORDERED: BISMUTH SUBSALICYLATE 262 MG/15 ML BTL PO PRN (11:35)
[2018-10-13] MEDS ORDERED: ACETAMINOPHEN 325 MG TABLET (FP) PO PRN ×2 (11:35)
[2018-10-13] MEDS ORDERED: MELATONIN 5 MG TABLETS PO PRN (11:35)
[2018-10-13] MEDS ORDERED: diazePAM 5 MG TABLET PO PRN (11:38)
[2018-10-13] MEDS: diazePAM 5 MG TABLET PO SCH ×2 (13:40→23:00)
[2018-10-13 16:51] LABS: HEMATOCRIT 37.2 % (35.4-49); HEMOGLOBIN 12.4 GM/dL (11.7-16.9); MCH 30.4 pg (25.7-33.7); MCHC 33.3 g/dl (32.0-35.9); MEAN CELL VOLUME 91.4 fl (80-96); PLATELET COUNT 305 K/MM3 (134-434); RBC 4.07 M/mm3 (4.00-5.60); RDW 14.9 % (11.9-15.9); WHITE BLOOD COUNT 4.8 K/mm3 (4.0-10.0)
[2018-10-13 16:55] LABS: ALBUMIN 3.4 g/dl (3.4-5.0); BILIRUBIN,TOTAL 0.5 mg/dL (0.2-1); BLOOD UREA NITROGEN 9.6 mg/dL (7-18); CALCIUM 8.7 mg/dL (8.5-10.1); POTASSIUM 4.3 mmol/L (3.5-5.1); TOT PROT 6.8 g/dl (6.4-8.2)
[2018-10-13] MEDS: THIAMINE HCL 100 MG TABLET (FP) PO SCH (23:01)
[2018-10-14] MEDS: diazePAM 5 MG TABLET PO SCH ×3 (06:07→21:27)
[2018-10-14] MEDS: PRENATAL VITAMINS W/ FOLIC ACID TABLET (FP) PO SCH (10:25)
--- NOTE | 2018-10-14 11:31 | CONSULT ---
[facility] Psychiatric Consult - Data Date of interview: 10/14/18 (Self-referred) Admission source: Self-referred Identifying data: Mr Cruz is a 58 years old Black male livibg as , unemployed receiving SSI, homeless seeking detox treatment for alcohol and cocaine Substance Abuse History: Refer to addiction counselor for further information Psychiatric History: Patient was approached by expert medical writer at bedside for interview. He told expert medical writer;" I don't want to talk". Patient was seen recently by expert medical writer on 09/04/18. Refer to previous note
--- NOTE | 2018-10-14 11:55 | PN ---
S CIWA - CIWA Score Nausea/Vomitin-No Nausea/No Vomiting Muscle Tremors: 4-Moderate,w/Arms Extend Anxiety: 4-Mod. Anxious/Guarded Agitation: 4-Moderately Restless Paroxysmal Sweats: 3 Orientation: 0-Oriented Tacttile Disturbances: 0-None Auditory Disturbances: 0-None Visual Disturbances: 0-None Headache: 0-None Present CIWA-Ar Total Score: 15 BHS Progress Note (SOAP) Subjective: irritable agitation interrupted sleep sweats Objective: 10/14/18 11:56 Vital Signs Temperature 98.2 F 10/14/18 09:52 Pulse Rate 84 10/14/18 09:52 Respiratory Rate 18 10/14/18 09:52 Blood Pressure 95/61 10/14/18 09:52 O2 Sat by Pulse Oximetry (%) Laboratory Tests 10/13/18 10/13/18 10/13/18 13:45 13:45 13:45 WBC 4.8 RBC 4.07 Hgb 12.4 Hct 37.2 MCV 91.4 MCH 30.4 MCHC 33.3 RDW 14.9 Plt Count 305 MPV 8.0 Sodium 143 Potassium 4.3 Chloride 107 Carbon Dioxide 30 Anion Gap 7 L BUN 9.6 Creatinine 1.0 Est GFR (CKD-EPI)AfAm 97.08 Est GFR (CKD-EPI)NonAf 83.76 Random Glucose 96 Calcium 8.7 Total Bilirubin 0.5 AST 14 L ALT 21 Alkaline Phosphatase 48 Total Protein 6.8 Albumin 3.4 RPR Titer Nonreactive HIV 1&2 Antibody Screen HIV P24 Antigen 10/13/18 13:45 WBC RBC Hgb Hct MCV MCH MCHC RDW Plt Count MPV Sodium Potassium Chloride Carbon Dioxide Anion Gap BUN Creatinine Est GFR (CKD-EPI)AfAm Est GFR (CKD-EPI)NonAf Random Glucose Calcium Total Bilirubin AST ALT Alkaline Phosphatase Total Protein Albumin RPR Titer HIV 1&2 Antibody Screen Negative HIV P24 Antigen Negative aaox3 ambulating no acute distress Assessment: 10/14/18 11:57 withdrawal sx Plan: continue detox increase fluids
[2018-10-14] MEDS: THIAMINE HCL 100 MG TABLET (FP) PO SCH (21:27)
[2018-10-15] MEDS: diazePAM 5 MG TABLET PO SCH ×2 (06:08→18:55)
[2018-10-15] MEDS: PRENATAL VITAMINS W/ FOLIC ACID TABLET (FP) PO SCH (09:45)
--- NOTE | 2018-10-15 12:11 | PN ---
S CIWA - CIWA Score Nausea/Vomitin-No Nausea/No Vomiting Muscle Tremors: 2 Anxiety: 2 Agitation: 2 Paroxysmal Sweats: 3 Orientation: 0-Oriented Tacttile Disturbances: 0-None Auditory Disturbances: 0-None Visual Disturbances: 0-None Headache: 2-Mild CIWA-Ar Total Score: 11 BHS Progress Note (SOAP) Subjective: c/o sweats, anxiety, and headache. Objective: 10/15/18 12:11 Vital Signs 10/15/18 10/15/18 06:00 09:22 Temperature 97.7 F 97.5 F L Pulse Rate 77 79 Respiratory 16 18 Rate Blood Pressure 124/76 98/64 Assessment: 10/15/18 12:11 AOX3, in no acute respiratory distress Full ROM, ambulating in the unit. Withdrawal symptoms. Plan: continue detox.
[2018-10-15] MEDS: THIAMINE HCL 100 MG TABLET (FP) PO SCH (23:58)
[2018-10-16] MEDS ORDERED: diazePAM 5 MG TABLET PO ONE ×2 (06:00→18:00)
[2018-10-16] MEDS: PRENATAL VITAMINS W/ FOLIC ACID TABLET (FP) PO SCH (10:01)
--- NOTE | 2018-10-16 15:59 | PN ---
[facility] CIWA - CIWA Score Nausea/Vomitin-No Nausea/No Vomiting Muscle Tremors: None Anxiety: 3 Agitation: 3 Paroxysmal Sweats: 2 Orientation: 0-Oriented Tacttile Disturbances: 0-None Auditory Disturbances: 0-None Visual Disturbances: 0-None Headache: 0-None Present CIWA-Ar Total Score: 8 BHS Progress Note (SOAP) Subjective: Feels ok with taking medication. Has increased sweating, interrupted sleep, anxious, tremor. Objective: 10/16/18 15:56 Last Vital Signs Temp Pulse Resp BP Pulse Ox 97.3 F L 89 18 101/57 L 10/16/18 14:08 10/16/18 14:08 10/16/18 14:08 10/16/18 14:08 Laboratory Tests 10/13/18 10/13/18 10/13/18 13:45 13:45 13:45 WBC 4.8 RBC 4.07 Hgb 12.4 Hct 37.2 MCV 91.4 MCH 30.4 MCHC 33.3 RDW 14.9 Plt Count 305 MPV 8.0 Sodium 143 Potassium 4.3 Chloride 107 Carbon Dioxide 30 Anion Gap 7 L BUN 9.6 Creatinine 1.0 Est GFR (CKD-EPI)AfAm 97.08 Est GFR (CKD-EPI)NonAf 83.76 Random Glucose 96 Calcium 8.7 Total Bilirubin 0.5 AST 14 L ALT 21 Alkaline Phosphatase 48 Total Protein 6.8 Albumin 3.4 RPR Titer Nonreactive HIV 1&2 Antibody Screen HIV P24 Antigen 10/13/18 13:45 WBC RBC Hgb Hct MCV MCH MCHC RDW Plt Count MPV Sodium Potassium Chloride Carbon Dioxide Anion Gap BUN Creatinine Est GFR (CKD-EPI)AfAm Est GFR (CKD-EPI)NonAf Random Glucose Calcium Total Bilirubin AST ALT Alkaline Phosphatase Total Protein Albumin RPR Titer HIV 1&2 Antibody Screen Negative HIV P24 Antigen Negative Labs reviewed Assessment: 10/16/18 15:56 Withdrawal symptoms Plan: Continue detox Encouraged PO water intake Valium 5mg PO x 1 dose ordered for today at 6pm and tomorrow at 6am due to increased withdrawal symptoms and patient was no longer on valium. Patient scheduled for discharge tomorrow. Hopefully, he will feel better upon discharge.
[2018-10-16] MEDS: THIAMINE HCL 100 MG TABLET (FP) PO SCH (23:54)
[2018-10-17] MEDS ORDERED: diazePAM 5 MG TABLET PO ONE (06:00)
[2018-10-17 06:23] VITALS: BP 116/67; PULSE 68; TEMP 97.8
--- NOTE | 2018-10-17 09:50 | DS ---
[facility] Detox Discharge Summary Admission Date: 10/13/18 Discharge Date: 10/17/18 - History Present History: Alcohol Dependence, Cocaine Dependence - Physical Exam Results Vital Signs: Vital Signs Temperature 97.8 F 10/17/18 06:00 Pulse Rate 68 10/17/18 06:00 Respiratory Rate 16 10/17/18 06:00 Blood Pressure 116/67 10/17/18 06:00 O2 Sat by Pulse Oximetry (%) - Treatment Hospital Course: Detox Protocol Followed, Detoxed Safely, Responded well, Discharged Condition Good, Rehab Referral Accepted - Medication Discharge Medications: Ambulatory Orders Buspirone HCl [Buspar -] 30 mg PO HS 09/03/18 Risperidone [Risperdal -] 2 mg PO BID 09/03/18 - Diagnosis (1) Alcohol dependence with withdrawal Current Visit: Yes Status: Chronic Qualifiers: Complication of substance-induced condition: uncomplicated Qualified Code(s ): F10.230 - Alcohol dependence with withdrawal, uncomplicated (2) Cocaine dependence Current Visit: Yes Status: Chronic Qualifiers: Substance use status: uncomplicated Qualified Code(s): F14.20 - Cocaine dependence, uncomplicated (3) Impingement syndrome, shoulder, left Current Visit: No Status: Acute (4) Insomnia Current Visit: No Status: Acute (5) Substance induced mood disorder Current Visit: No Status: Acute (6) Substance-induced sleep disorder Current Visit: No Status: Acute (7) BPH (benign prostatic hyperplasia) Current Visit: No Status: Chronic Qualifiers: Lower urinary tract symptom presence: symptoms absent Qualified Code(s): N40.0 - Benign prostatic hyperplasia without lower urinary tract symptoms (8) Nicotine dependence Current Visit: Yes Status: Chronic Qualifiers: Nicotine product type: cigarettes Substance use status: uncomplicated Qualified Code(s): F17.210 - Nicotine dependence, cigarettes, uncomplicated (9) Schizophrenia Current Visit: No Status: Chronic Qualifiers: - AMA Did Patient Leave Against Medical Advice: No (pt referred to [facility] inpatient rehab)
== END 2018-10-17 08:58 | disposition home or self-care (01) | DRG 774 ==
LOC: YASAS 08:26 → Y6N 12:00
PROVIDERS: ADMIT Surgery; ATTEND Surgery
PROC: HZ2ZZZZ Detoxification Services for Substance Abuse Treatment (ICD-10-PCS; principal; 2018-10-13)
DX: F10.230 Alcohol dependence with withdrawal, uncomplicated (principal); F14.20 Cocaine dependence, uncomplicated; F17.210 Nicotine dependence, cigarettes, uncomplicated; F19.24 Other psychoactive substance dependence with psychoactive substance-induced mood disorder; F19.282 Other psychoactive substance dependence with psychoactive substance-induced sleep disorder; F20.9 Schizophrenia, unspecified; M75.42 Impingement syndrome of left shoulder; G47.00 Insomnia, unspecified; N40.0 Benign prostatic hyperplasia without lower urinary tract symptoms; R63.4 Abnormal weight loss; Z68.1 Body mass index [BMI] 19.9 or less, adult; Z59.0 Homelessness; Z88.0 Allergy status to penicillin
CPT/HCPCS: 36415; 80053; 85027; 86593; 87389

== ENCOUNTER 2018-10-31 08:30 | Inpatient (IN) | payer OTHER ==
[2018-10-31 08:52] VITALS: BMI 19.8
--- NOTE | 2018-10-31 09:21 | HP ---
CIWA Score Nausea/Vomitin-Mild Nausea/No Vomiting Muscle Tremors: 1-None Visible, but [place] Anxiety: 1-Mildly Anxious Agitation: 1-Slight > Activity Paroxysmal Sweats: No Perspiration Orientation: 0-Oriented Tacttile Disturbances: 0-None Auditory Disturbances: 0-None Visual Disturbances: 0-None Headache: 0-None Present CIWA-Ar Total Score: 4 - Admission Criteria OASAS Guidelines: Admission for Medically Managed Detox: Requires at least one of the followin. CIWA greater than 12 2. Seizures within the past 24 hours 3. Delirium tremens within the past 24 hours 4. Hallucinations within the past 24 hours 5. Acute intervention needed for co occurring medical disorder 6. Acute intervention needed for co occurring psychiatric disorder 7. Severe withdrawal that cannot be handled at a lower level of care (continued vomiting, continued diarrhea, abnormal vital signs) requiring intravenous medication and/or fluids 8. Admission ROS BHS - HPI Chief Complaint: i am here for rehab from alcohol and cocaine Allergies/Adverse Reactions: Allergies Allergy/AdvReac Type Severity Reaction Status Date / Time Penicillins Allergy Severe Rash Verified 10/13/18 08:45 lactose AdvReac Intermediate Vomiting Verified 10/13/18 08:45 History of Present Illness: this 58 years old male with alcohol and cocaine dependence,seeking rehab, multiple admissions in detox,last [facility] 10/13/18 to 10/17/18 weight loss old fx of left elbow 5 months ago schizophrenia longest sobriety 8 moths no suicidal,no homicidal multiple admissions in detox,rehab but keep relapsing - Ebola screening Have you traveled outside of the country in the last 21 days: No Have you had contact with anyone from an Ebola affected area: No - Review of Systems Constitutional: No Symptoms Reported, Unintentional Wgt. Loss EENT: reports: No Symptoms Reported Respiratory: reports: No Symptoms reported Cardiac: reports: No Symptoms Reported GI: reports: Poor Appetite : reports: No Symptoms Reported Musculoskeletal: reports: No Symptoms Reported Integumentary: reports: No Symptoms Reported Neuro: reports: No Symptoms reported Endocrine: reports: No Symptoms Reported Hematology: reports: No Symptoms Reported Psychiatric: reports: No Sypmtoms Reported (schizophrenia), Judgement Intact, Mood/Affect Appropiate Patient History - Patient Medical History Hx Anemia: No Hx Asthma: No Hx Chronic Obstructive Pulmonary Disease (COPD): No Hx Cancer: No Hx Cardiac Disorders: No Hx Congestive Heart Failure: No Hx Hypertension: No Hx Hypercholesterolemia: No Hx Pacemaker: No HX Cerebrovascular Accident: No Hx Seizures: No Hx Dementia: No Hx Diabetes: No Hx Gastrointestinal Disorders: No Hx Liver Disease: No Hx Genitourinary Disorders: No Hx Sexually Transmitted Disorders: No Hx Renal Disease (ESRD): No Hx Thyroid Disease: No Hx Human Immunodeficiency Virus (HIV): No (04/23 negative) Hx Hepatitis C: No Hx Depression: Yes Hx Suicide Attempt: Yes (cutter left forearm in 08/21) Hx Bipolar Disorder: No Hx Schizophrenia: Yes Other Medical History: no suicidal,no homicidal - Patient Surgical History Past Surgical History: No Hx Neurologic Surgery: No Hx Cataract Extraction: No Hx Cardiac Surgery: No Hx Lung Surgery: No Hx Breast Surgery: No Hx Breast Biopsy: No Hx Abdominal Surgery: Yes (two inguinal hernia repair 1979) Hx Appendectomy: No Hx Cholecystectomy: No Hx Genitourinary Surgery: No Hx Section: No Hx Orthopedic Surgery: No Anesthesia Reaction: No - PPD History Previous Implant?: Yes Documented Results: Negative w/proof Implanted On Prior R Admission?: Yes Date: 10/20/17 Results: 0 mm PPD to be Administered?: No - Smoking Cessation Smoking history: Current some day smoker Have you smoked in the past 12 months: Yes Aproximately how many cigarettes per day: 2 If you are a former smoker, when did you quit?: 4months ago Cigars Per Day: 0 Hx Chewing Tobacco Use: No Initiated information on smoking cessation: Yes 'Breaking Loose' booklet given: 10/31/18 - Substance & Tx. History Hx Alcohol Use: Yes Hx Substance Use: Yes Substance Use Type: Alcohol, Cocaine Hx Substance Use Treatment: Yes ([facility] 10/13/18 to 10/17/18) - Substances abused Alcohol Substance route: Oral Frequency: 3-6 times per week Amount used: two 6 packs 24 oz beer, 1/5 liquor Age of first use: 18 Date of last use: 10/30/18 Cocaine Substance route: Smoking Frequency: 3-6 times per week Amount used: 2 dimes Age of first use: 24 Date of last use: 10/30/18 Family Disease History - Family Disease History Family Disease History: Other: Father (, homocide ), Mother (alive and well ), Sister (four - healthy - living ), Daughter (one - age 16 - healthy) Admission Physical Exam S - Vital Signs Vital Signs: Vital Signs - 24 hr 10/31/18 08:47 Temperature 98.2 F Pulse Rate 62 Respiratory 18 Rate Blood Pressure 98/67 - Physical General Appearance: Yes: Within Normal Limits, Anxious HEENTM: Yes: Normal ENT Inspection, OLIVERIO, Pharynx Normal Respiratory: Yes: Lungs Clear, Normal Breath Sounds, No Respiratory Distress Neck: Yes: Within Normal Limits, Supple, Trachea in good position Breast: Yes: Within Normal Limits Cardiology: Yes: Within Normal Limits, Regular Rhythm, Regular Rate, S1, S2 Abdominal: Yes: Within Normal Limits, Normal Bowel Sounds, Non Tender, Flat Genitourinary: Yes: Within Normal Limits Back: Yes: Within Normal Limits Musculoskeletal: Yes: Back pain, Muscle Pain Extremities: Yes: Within Normal Limits, Other (limitation of movement left elbow ) Neurological: Yes: 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 NML intact, Fully Oriented, Alert, Motor Strength 5/5 Integumentary: Yes: Within Normal Limits Lymphatic: Yes: Within Normal Limits - Diagnostic (1) Alcohol dependence Current Visit: Yes Status: Acute (2) BPH (benign prostatic hyperplasia) Current Visit: No Status: Chronic Qualifiers: Lower urinary tract symptom presence: symptoms absent Qualified Code(s): N40.0 - Benign prostatic hyperplasia without lower urinary tract symptoms (3) Cocaine dependence Current Visit: No Status: Chronic Qualifiers: Substance use status: uncomplicated Qualified Code(s): F14.20 - Cocaine dependence, uncomplicated (4) Nicotine dependence Current Visit: No Status: Chronic Qualifiers: Nicotine product type: cigarettes Substance use status: uncomplicated Qualified Code(s): F17.210 - Nicotine dependence, cigarettes, uncomplicated (5) Fracture of left elbow Current Visit: Yes Status: Acute (6) Schizophrenia Current Visit: No Status: Chronic Qualifiers: Comment: Self-report.On medications (confirmed at [facility] # [id number]).Patient is affiliated with [facility] [place] for psychiatric OPD care. (7) Weight loss Current Visit: Yes Status: Acute Cleared for Admission [facility] - Detox or Rehab Claeared for Rehab Admission: Yes Breathalyzer - Breathalyzer Breathalyzer: 0 Urine Drug Screen - Test Device Lot number: [id number] Expiration date: 08/02/20 - Control Is test valid?: Yes - Results Drug screen NEGATIVE: No Urine drug screen results: RAMIRO-Cocaine, MOP-Opiates, BZO-Benzodiazepines Inpatient Rehab Admission - Rehab Decision to Admit Inpatient rehab admission?: Yes - Initial Determination Are CD services needed?: Yes Free of communicable disease: Yes Not in need of hospitalization: Yes - Rehab Admission Criteria Previous failed treatment: Yes Poor recovery environment: Yes Comorbidities: Yes Lacks judgement: No Patient is meeting Inpatient Rehab admission criteria:: Yes
[2018-10-31] MEDS ORDERED: MAGNESIUM HYDROX 2400MG/30ML ORAL SUSPENSION 30 ML CUP PO PRN (09:35)
[2018-10-31] MEDS ORDERED: IBUPROFEN 400 MG TABLET (FP) PO PRN (09:35)
[2018-10-31] MEDS ORDERED: LOPERAMIDE HCL 2 MG CAPSULE PO PRN (09:35)
[2018-10-31] MEDS ORDERED: guaiFENesin 200 MG/10 ML 10 ML UNIT-DOSE CUPS PO PRN (09:35)
[2018-10-31] MEDS ORDERED: ACETAMINOPHEN 325 MG TABLET (FP) PO PRN (09:35)
[2018-10-31] MEDS ORDERED: P-EPHED 60MG/TRIPROLIDI 2.5MG TABLET PO PRN (09:35)
[2018-10-31] MEDS ORDERED: MAG HYDROX/AL HYDROX/SIMETH 30 ML UNIT-DOSE CUP PO PRN (09:35)
[2018-10-31] MEDS ORDERED: MENTHOL/PHENOL 1 EACH UD MM PRN (09:35)
[2018-10-31] MEDS ORDERED: hydrOXYzine PAMOATE 25 MG CAPSULE (FP) PO PRN (09:35)
[2018-10-31] MEDS ORDERED: MAGNESIUM CITRATE 300 ML BOTTLE PO PRN (09:35)
[2018-10-31] MEDS: PRENATAL VITAMINS W/ FOLIC ACID TABLET (FP) PO SCH (10:29)
[2018-10-31 13:50] LABS: HEMATOCRIT 38.9 % (35.4-49); HEMOGLOBIN 13.1 GM/dL (11.7-16.9); MCH 30.5 pg (25.7-33.7); MCHC 33.6 g/dl (32.0-35.9); MEAN CELL VOLUME 90.9 fl (80-96); PLATELET COUNT 339 K/MM3 (134-434); RBC 4.28 M/mm3 (4.00-5.60); WHITE BLOOD COUNT 5.7 K/mm3 (4.0-10.0)
[2018-10-31 14:10] LABS: ALBUMIN 3.8 g/dl (3.4-5.0); BILIRUBIN,TOTAL 0.5 mg/dL (0.2-1); BLOOD UREA NITROGEN 12.6 mg/dL (7-18); CALCIUM 9.2 mg/dL (8.5-10.1); CREATININE 0.9 mg/dL (0.55-1.3); POTASSIUM 4.1 mmol/L (3.5-5.1); TOT PROT 7.4 g/dl (6.4-8.2)
--- NOTE | 2018-10-31 15:12 | CONSULT ---
[facility] Psychiatric Consult - Data Date of interview: 10/31/18 Admission source: [facility] Identifying data: Patient is a 58 year old single male, father of one, unemployed, domiciled, and is supported by SSI benefits. This is one of multiple admissions for patient. Patient admitted to [facility] for alcohol dependence. Substance Abuse History: Smoking Cessation. Smoking history: Current some day smoker. Have you smoked in the past 12 months: Yes. Aproximately how many cigarettes per day: 2. If you are a former smoker, when did you quit?: 4months ago. Cigars Per Day: 0. Hx Chewing Tobacco Use: No. Initiated information on smoking cessation: Yes. 'Breaking Loose' booklet given: 10/31/18. - Substance & Tx. History. Hx Alcohol Use: Yes. Hx Substance Use: Yes. Substance Use Type : Alcohol, Cocaine. Hx Substance Use Treatment: Yes ([facility] 10/13/18 to 10/17/18) . - Substances abused. Alcohol. Substance route: Oral. Frequency: 3-6 times per week. Amount used: two 6 packs 24 oz beer, 1/5 liquor. Age of first use: 18. Date of last use: 10/30/18. Cocaine. Substance route: Smoking. Frequency: 3-6 times per week. Amount used: 2 dimes. Age of first use: 24. Date of last use: 10/30/18 Medical History: Significant for arthritis of both shoulders, benign prostatic hypertrophy and chronic shoulder pain (left). Psychiatric History: Patient reports h/o two psychiatric hospitalizations ( [facility], [facility], and [facility]). Diagnosis of schizophrenia. Patient reports h/o suicide attempt by self multilation by cutting his forearm. Mr. Cruz's most recent outpatient psychiatric care was eight months ago at [facility] [place] and was prescribed risperdal 2mg BID + buspar 15mg BID. Patient continues to accept risperdal 2mg and buspar 15mg today. Reports receiving refills from detox/rehab facilities. At present patient denies suicidal/homicidal ideation, auditory/ visual hallucinations. Physical/Sexual Abuse/Trauma History: denies. Mental Status Exam - Mental Status Exam Alert and Oriented to: Time, Place, Person Cognitive Function: Good Patient Appearance: Well Groomed Mood: Withdrawn Affect: Mood Congruent Patient Behavior: Cooperative Speech Pattern: Appropriate Voice Loudness: Moderately Soft/Quiet Thought Process: Goal Oriented Thought Disorder: Not Present Hallucinations: Denies Suicidal Ideation: Denies Homicidal Ideation: Denies Insight/Judgement: Poor Sleep: Fair Appetite: Fair Muscle strength/Tone: Normal Gait/Station: Normal Psychiatric Findings - Problem List ([place] 1, 2,3) (1) Alcohol dependence Current Visit: Yes Status: Acute (2) Cocaine dependence Current Visit: Yes Status: Chronic Qualifiers: Substance use status: uncomplicated Qualified Code(s): F14.20 - Cocaine dependence, uncomplicated (3) Nicotine dependence Current Visit: Yes Status: Chronic Qualifiers: Nicotine product type: cigarettes Substance use status: uncomplicated Qualified Code(s): F17.210 - Nicotine dependence, cigarettes, uncomplicated (4) Schizophrenia Current Visit: Yes Status: Chronic Qualifiers: Comment: Self-report.On medications (confirmed at [facility] # [id number]).Patient is affiliated with [facility] for psychiatric OPD care. - Initial Treatment Plan Initial Treatment Plan: Psychoeducation provided. Detoxification in progress. Will order risperdal 2mg BID + Buspar 15mg BID. Benefits and side effects discussed. Verbal consent given
[2018-10-31] MEDS: risperiDONE 2 MG TABLET PO SCH (21:54)
[2018-10-31] MEDS: THIAMINE HCL 100 MG TABLET (FP) PO SCH (21:54)
[2018-10-31] MEDS ORDERED: MELATONIN 5 MG TABLETS PO PRN (22:00)
[2018-11-01] MEDS: PRENATAL VITAMINS W/ FOLIC ACID TABLET (FP) PO SCH (10:37)
[2018-11-01] MEDS: risperiDONE 2 MG TABLET PO SCH ×2 (10:37→21:58)
[2018-11-01 11:06] LABS: PH,URINE 8.5 (5.0-8.0); URINE APPEARANCE CLEAR; URINE BILIRUBIN NEGATIVE (NEGATIVE); URINE COLOR YELLOW; URINE GLUCOSE (UA) NEGATIVE (NEGATIVE); URINE KETONE NEGATIVE (NEGATIVE); URINE LEUK ESTERASE NEGATIVE (NEGATIVE); URINE NITRITE NEGATIVE (NEGATIVE); URINE PROTEIN NEGATIVE (NEGATIVE)
[2018-11-01] MEDS: THIAMINE HCL 100 MG TABLET (FP) PO SCH (21:58)
[2018-11-02] MEDS: risperiDONE 2 MG TABLET PO SCH (10:25)
[2018-11-02] MEDS: PRENATAL VITAMINS W/ FOLIC ACID TABLET (FP) PO SCH (10:25)
--- NOTE | 2018-11-02 15:34 | PN ---
Psychiatric Progress Note Vital Signs: Vital Signs Period Temp Pulse Resp BP Sys/Gallagher Pulse Ox Last 24 Hr 98.3 F-98.3 F 75-75 18-18 99-99/71-71 Date of Session: 11/02/18 Chief Complaint:: " I feel tired with the risperdal." HPI: Patient admitted to [facility] for alcohol dependence comorbid schizophrenia. ROS: Patient presents as fatigue but is coherent, alert and oriented X3. Current Medications: Active Medications Generic Name Dose Route Start Last Admin Trade Name Freq PRN Reason Stop Dose Admin Acetaminophen 650 mg 10/31/18 09:35 Tylenol - PO Q4H PRN FEVER Al Hydroxide/Mg Hydroxide 30 ml 10/31/18 09:35 Mylanta Oral Suspension - PO Q6H PRN DYSPEPSIA Buspirone HCl 15 mg 10/31/18 22:00 11/02/18 10:25 Buspar - PO 15 mg BID RICHY Administration Eucalyptus/Menthol/Phenol/Sorbitol 1 each 10/31/18 09:35 Cepastat Lozenge - MM Q4H PRN SORE THROAT Guaifenesin 10 ml 10/31/18 09:35 Robitussin - PO Q6H PRN COUGH Hydroxyzine Pamoate 25 mg 10/31/18 09:35 Vistaril - PO Q4H PRN AGITATION Ibuprofen 400 mg 10/31/18 09:35 Motrin - PO Q6H PRN Pain level 4-6 Loperamide HCl 4 mg 10/31/18 09:35 Imodium - PO Q6H PRN DIARRHEA Magnesium Citrate 300 ml 10/31/18 09:35 Citroma - PO Q48H PRN CONSTIPATION Magnesium Hydroxide 30 ml 10/31/18 09:35 Milk Of Magnesia - PO DAILY PRN CONSTIPATION Melatonin 5 mg 10/31/18 22:00 Melatonin PO HS PRN INSOMNIA Multivit/Folic Acid/Iron 1 tab 10/31/18 10:00 11/02/18 10:25 Vitamins (Sjr) - PO 1 tab DAILY RICHY Administration Pseudoephedrine/Triprolidine 1 combo 10/31/18 09:35 Actifed - PO TID PRN NASAL CONGESTION Risperidone 2 mg 10/31/18 22:00 11/02/18 10:25 Risperdal - PO 2 mg BID RICHY Administration Thiamine HCl 100 mg 10/31/18 22:00 11/01/18 21:58 Vitamin B1 - PO Not Given HS RICHY Medication(s) Change(s): Yes. Current Side Effect: No Lab tests ordered: No Lab tests reviewed: Yes Provider note:: Patient reports feeling tired from accepting risperdal 2mg BID. Patient noted to look fatigue and sluggish. Mr. Cruz reports being in bed throughout the day because of the risperdal. Will discontinued risperdal 2mg BID and will order risperdal 1mg daily + 2mg HS. No psychosis noted. Patient in agreement with plan. Verbal consent given. Total face to face time:: 25 Mental Status Exam - Mental Status Exam Alert and Oriented to: Time, Place, Person Cognitive Function: Good Patient Appearance: Well Groomed Mood: Withdrawn Affect: Mood Congruent Patient Behavior: Fatigued Speech Pattern: Delayed Voice Loudness: Moderately Soft/Quiet Thought Process: Goal Oriented Thought Disorder: Not Present Hallucinations: Denies Suicidal Ideation: Denies Homicidal Ideation: Denies Insight/Judgement: Poor Sleep: Fair Appetite: Fair Muscle strength/Tone: Normal Gait/Station: Normal Psychiatric Treatment Plan - Problem List (1) Alcohol dependence Current Visit: Yes (2) Cocaine dependence Current Visit: Yes Qualifiers: Substance use status: uncomplicated Qualified Code(s): F14.20 - Cocaine dependence, uncomplicated (3) Nicotine dependence Current Visit: Yes Qualifiers: Nicotine product type: cigarettes Substance use status: uncomplicated Qualified Code(s): F17.210 - Nicotine dependence, cigarettes, uncomplicated (4) Schizophrenia Current Visit: Yes Qualifiers: Comment: Self-report.On medications (confirmed at [facility] # [id number]).Patient is affiliated with [facility] psychiatric OPD care.
[2018-11-02] MEDS ORDERED: risperiDONE 2 MG TABLET PO SCH (22:00)
[2018-11-02] MEDS: THIAMINE HCL 100 MG TABLET (FP) PO SCH (22:58)
[2018-11-03 07:00] VITALS: BP 108/64; PULSE 76; TEMP 98.5
[2018-11-03] MEDS: PRENATAL VITAMINS W/ FOLIC ACID TABLET (FP) PO SCH (09:19)
--- NOTE | 2018-11-03 09:42 | PN ---
BHS Progress Note (SOAP) Subjective: Patient is leaving today AMA for personal reasons. HOSPITAL COURSE: Patient attended groups, had 1:1 session with his counselor, was seen by psychiatric provider for medication evaluation, and was adherent to his treatment plan and medication regimen. He had no acute or urgent medical problems while in rehab. 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 Integumentary:Warm, dry, color consistent throughout trunk and extremities. CBC, BMP 10/31/18 09:15 10/31/18 09:15 Vital Signs (72 hours) 11/01/18 11/01/18 11/01/18 00:30 03:30 06:59 Temperature 98.1 F Pulse Rate 74 Respiratory 18 18 18 Rate Blood Pressure 91/61 11/02/18 11/02/18 11/02/18 03:30 06:28 10:00 Temperature 98.3 F 98.3 F Pulse Rate 75 75 Respiratory 18 18 18 Rate Blood Pressure 99/71 99/71 11/03/18 11/03/18 03:30 06:59 Temperature 98.5 F Pulse Rate 76 Respiratory 18 18 Rate Blood Pressure 108/64 Assessment: Medically stable for discharge Discharge Dx: Cocaine dependence ETOH dependence Insomnia 11/03/18 09:46 Plan: On-going continuation of care: patient will return to his outpatient program, [facility] where he receives substance abuse treatment and medical care. No prescriptions needed.
[2018-11-03] MEDS ORDERED: risperiDONE 1 MG TABLET (FP) PO SCH (10:00)
== END 2018-11-03 10:25 | disposition left against medical advice (07) | DRG 770 ==
LOC: YASAS 08:30 → Y3W 09:51
PROVIDERS: ADMIT Neuromusculoskeletal Medicine & OMM; ATTEND Neuromusculoskeletal Medicine & OMM
PROC: HZ42ZZZ Group Counseling for Substance Abuse Treatment, Cognitive-Behavioral (ICD-10-PCS; principal; 2018-10-31)
DX: F10.20 Alcohol dependence, uncomplicated (principal); F14.20 Cocaine dependence, uncomplicated; F17.210 Nicotine dependence, cigarettes, uncomplicated; F20.9 Schizophrenia, unspecified; G47.00 Insomnia, unspecified; R63.4 Abnormal weight loss; Z68.1 Body mass index [BMI] 19.9 or less, adult; Z87.81 Personal history of (healed) traumatic fracture; Z59.0 Homelessness
CPT/HCPCS: 36415; 80053; 81003; 85027; 86593; 87389; J2794

== ENCOUNTER 2019-02-16 14:05 | Inpatient (IN) | payer OTHER ==
[2019-02-16 15:52] VITALS: BMI 20.1
--- NOTE | 2019-02-16 17:10 | HP ---
CIWA Score Nausea/Vomitin-Mild Nausea/No Vomiting Muscle Tremors: 1-None Visible, but [place] Anxiety: 0-No Anxiety, at Ease Agitation: 0-Normal Activity Paroxysmal Sweats: No Perspiration Orientation: 2-Disoriented Date<2 days Tacttile Disturbances: 2-Mild Itch/Numbness/Burn Auditory Disturbances: 0-None Visual Disturbances: 2-Mild Sensitivity Headache: 3-Moderate CIWA-Ar Total Score: 11 - Admission Criteria OASAS Guidelines: Admission for Medically Managed Detox: Requires at least one of the followin. CIWA greater than 12 2. Seizures within the past 24 hours 3. Delirium tremens within the past 24 hours 4. Hallucinations within the past 24 hours 5. Acute intervention needed for co occurring medical disorder 6. Acute intervention needed for co occurring psychiatric disorder 7. Severe withdrawal that cannot be handled at a lower level of care (continued vomiting, continued diarrhea, abnormal vital signs) requiring intravenous medication and/or fluids 8. Admitting History and Physical - Smoking History Smoking history: Current some day smoker Have you smoked in the past 12 months: Yes Aproximately how many cigarettes per day: 2 If you are a former smoker, when did you quit?: 4months ago - Alcohol/Substance Use Hx Alcohol Use: Yes Admission ROS S - HPI Allergies/Adverse Reactions: Allergies Allergy/AdvReac Type Severity Reaction Status Date / Time Penicillins Allergy Severe Rash Verified 02/16/19 15:44 lactose AdvReac Intermediate Vomiting Verified 02/16/19 15:44 History of Present Illness: pt here requesting detox from etoh use , reports 12-pk beer every 2-3 days , reports tremors if not drinking , denies seizures, + blackouts , denies falls while intoxicated cocaine : every 2 days tobacco : w/ NIKOLAI PMHX : left shoulder chronic pain , borderline DM pshx : brenda inguinal hernia psych : sad on Risperdol , Buspar , latest taken 2 d ago Exam Limitations: No Limitations - Ebola screening Have you traveled outside of the country in the last 21 days: No Have you had contact with anyone from an Ebola affected area: No Do you have a fever: No - Review of Systems Constitutional: See HPI, Loss of Appetite EENT: reports: No Symptoms Reported Respiratory: reports: No Symptoms reported Cardiac: reports: No Symptoms Reported GI: reports: See HPI, Constipated, Nausea, Poor Appetite : reports: No Symptoms Reported Musculoskeletal: reports: Muscle Pain Integumentary: reports: No Symptoms Reported Neuro: reports: Headache, Tremors Endocrine: reports: No Symptoms Reported Psychiatric: reports: Anxious Patient History - Patient Medical History Hx Anemia: No Hx Asthma: No Hx Chronic Obstructive Pulmonary Disease (COPD): No Hx Cancer: No Hx Cardiac Disorders: No Hx Congestive Heart Failure: No Hx Hypertension: No Hx Hypercholesterolemia: No Hx Pacemaker: No HX Cerebrovascular Accident: No Hx Seizures: No Hx Dementia: No Hx Diabetes: No Hx Gastrointestinal Disorders: No Hx Liver Disease: No Hx Genitourinary Disorders: No Hx Sexually Transmitted Disorders: No Hx Renal Disease (ESRD): No Hx Thyroid Disease: No Hx Human Immunodeficiency Virus (HIV): No (04/23 negative) Hx Hepatitis C: No Hx Depression: Yes Hx Suicide Attempt: Yes (cutter left forearm in 08/21) Hx Bipolar Disorder: No Hx Schizophrenia: Yes - Patient Surgical History Past Surgical History: No Hx Neurologic Surgery: No Hx Cataract Extraction: No Hx Cardiac Surgery: No Hx Lung Surgery: No Hx Breast Surgery: No Hx Breast Biopsy: No Hx Abdominal Surgery: Yes (two inguinal hernia repair 1979) Hx Appendectomy: No Hx Cholecystectomy: No Hx Genitourinary Surgery: No Hx Section: No Hx Orthopedic Surgery: No Anesthesia Reaction: No - PPD History Date: 10/20/17 Results: 0 mm - Smoking Cessation Smoking history: Current some day smoker Have you smoked in the past 12 months: Yes Aproximately how many cigarettes per day: 2 If you are a former smoker, when did you quit?: 4months ago Cigars Per Day: 0 Hx Chewing Tobacco Use: No Initiated information on smoking cessation: Yes 'Breaking Loose' booklet given: 02/16/19 - Substances abused Alcohol Substance route: Oral Frequency: Daily Amount used: two 6 packs 24 oz beer & 5th of liquor Age of first use: 18 Date of last use: 02/16/19 Cocaine Substance route: Smoking Frequency: 3-6 times per week Amount used: $50 Age of first use: 24 Date of last use: 02/15/19 Admission Physical Exam BHS - Vital Signs Vital Signs: Vital Signs - 24 hr 02/16/19 15:42 Temperature 99.1 F Pulse Rate 82 Respiratory 18 Rate Blood Pressure 122/79 - Physical General Appearance: Yes: Disheveled, Mild Distress HEENTM: Yes: EOMI, Hearing grossly Normal, Normocephalic, Normal Voice Respiratory: Yes: No Accessory Muscle Use Neck: Yes: No masses,lesions,Nodules, Trachea in good position Cardiology: Yes: Regular Rhythm, Regular Rate, S1, S2 Abdominal: Yes: Non Tender, Soft Back: Yes: Normal Inspection Musculoskeletal: Yes: Gait Steady Extremities: Yes: Normal Range of Motion, Non-Tender Neurological: Yes: Alert, Motor Strength 5/5, Depressed Affect Integumentary: Yes: Warm, Other (extensive scarring brenda UE , LUE forearm w/ fresh guzman , states was cutting himself w/ razor yesterday , denies current SI / HI) - Diagnostic (1) Alcohol dependence Current Visit: Yes Status: Chronic Qualifiers: Substance use status: uncomplicated Qualified Code(s): F10.20 - Alcohol dependence, uncomplicated (2) Cocaine dependence Current Visit: Yes Status: Chronic Qualifiers: Substance use status: uncomplicated Qualified Code(s): F14.20 - Cocaine dependence, uncomplicated Breathalyzer - Breathalyzer Breathalyzer: 0.027 Urine Drug Screen - Test Device Lot number: [id number] Expiration date: 10/02/20 - Control Is test valid?: Yes - Results Drug screen NEGATIVE: No Urine drug screen results: RAMIRO-Cocaine Inpatient Rehab Admission - Rehab Decision to Admit Inpatient rehab admission?: No
[2019-02-16] MEDS ORDERED: P-EPHED 60MG/TRIPROLIDI 2.5MG TABLET PO PRN (17:30)
[2019-02-16] MEDS ORDERED: IBUPROFEN 400 MG TABLET (FP) PO PRN (17:30)
[2019-02-16] MEDS ORDERED: hydrOXYzine PAMOATE 25 MG CAPSULE (FP) PO PRN (17:30)
[2019-02-16] MEDS ORDERED: MAGNESIUM HYDROX 2400MG/30ML ORAL SUSPENSION 30 ML CUP PO PRN (17:30)
[2019-02-16] MEDS ORDERED: MAG HYDROX/AL HYDROX/SIMETH 30 ML UNIT-DOSE CUP PO PRN (17:30)
[2019-02-16] MEDS ORDERED: MENTHOL/PHENOL 1 EACH UD MM PRN (17:30)
[2019-02-16] MEDS ORDERED: BISMUTH SUBSALICYLATE 524 MG/30 ML UD PO PRN (17:30)
[2019-02-16] MEDS ORDERED: guaiFENesin 200 MG/10 ML 10 ML UNIT-DOSE CUPS PO PRN (17:30)
[2019-02-16] MEDS ORDERED: MAGNESIUM CITRATE 300 ML BOTTLE PO PRN (17:30)
[2019-02-16] MEDS ORDERED: ACETAMINOPHEN 325 MG TABLET (FP) PO PRN (17:30)
[2019-02-16] MEDS ORDERED: diazePAM 5 MG TABLET PO PRN (17:32)
[2019-02-16] MEDS ORDERED: diazePAM 5 MG TABLET PO ONE (17:32)
[2019-02-16] MEDS ORDERED: AMMONIUM LACTATE 12% LOTION 225 GM BOTTLE TP PRN (17:33)
[2019-02-16] MEDS ORDERED: MELATONIN 5 MG TABLETS PO PRN (22:00)
[2019-02-16] MEDS: diazePAM 5 MG TABLET PO SCH (23:12)
[2019-02-16] MEDS: THIAMINE HCL 100 MG TABLET (FP) PO SCH (23:12)
[2019-02-17] MEDS: diazePAM 5 MG TABLET PO SCH ×3 (06:16→22:53)
--- NOTE | 2019-02-17 08:43 | CONSULT ---
[facility] Psychiatric Consult - Data Date of interview: 02/17/19 Psychiatric History: Patient was approached at bedside. Told troy:" I'm ok, I don't need to see you"
[2019-02-17] MEDS: PRENATAL VITAMINS W/ FOLIC ACID TABLET (FP) PO SCH (10:04)
[2019-02-17] MEDS: ACETAMINOPHEN 325 MG TABLET (FP) PO PRN (10:04)
--- NOTE | 2019-02-17 11:23 | CONSULT ---
[facility] Psychiatric Consult - Data Date of interview: 02/17/19 Psychiatric History: Patient was approached at bedside by clinical communications supervisor and typewriter assembly and parts inspector. He told both of us in angry tone of voice: " Why you guys don't leave me alone. I told you I don't want the medicine"
--- NOTE | 2019-02-17 12:47 | PN ---
S CIWA - CIWA Score Nausea/Vomitin-Mild Nausea/No Vomiting Muscle Tremors: 1-None Visible, but [place] Anxiety: 1-Mildly Anxious Agitation: 1-Slight > Activity Paroxysmal Sweats: 2 Orientation: 1-Uncertain about Date Tacttile Disturbances: 1-Very Mild Itch/Numbness Auditory Disturbances: 1-Very Mild Visual Disturbances: 0-None Headache: 0-None Present CIWA-Ar Total Score: 9 BHS Progress Note (SOAP) Subjective: INTERRUPTED SLEEP, SWEATS, , CONSTIPATION , LEG PAINS Objective: 02/17/19 12:45 Vital Signs Temperature 98.1 F 02/17/19 09:33 Pulse Rate 82 02/17/19 09:33 Respiratory Rate 16 02/17/19 09:33 Blood Pressure 99/64 02/17/19 09:33 O2 Sat by Pulse Oximetry (%) LABS PENDING 02/17/19 12:46 PT AOX3 LYING IN BED IN NAD Assessment: 02/17/19 12:46 WITHDRAWAL SX'S CONSTIPATION Plan: CONT. DETOX INCREASE FLUIDS F/UP PENDING LABS MOM PRN ENSURE BID
[2019-02-17 14:36] LABS: HEMATOCRIT 36.6 % (35.4-49); HEMOGLOBIN 11.9 GM/dL (11.7-16.9); MCHC 32.7 g/dl (32.0-35.9); MEAN CELL VOLUME 91.7 fl (80-96); MEAN PLT VOLUME 7.7 fl (7.5-11.1); PLATELET COUNT 319 K/MM3 (134-434); RBC 3.99 M/mm3 (4.00-5.60); RDW 16.1 % (11.9-15.9); WHITE BLOOD COUNT 6.6 K/mm3 (4.0-10.0)
[2019-02-17 14:46] LABS: ALBUMIN 3.3 g/dl (3.4-5.0); BILIRUBIN,TOTAL 0.4 mg/dL (0.2-1); BLOOD UREA NITROGEN 11.5 mg/dL (7-18); CALCIUM 8.6 mg/dL (8.5-10.1); POTASSIUM 4.4 mmol/L (3.5-5.1); TOT PROT 6.8 g/dl (6.4-8.2)
[2019-02-17] MEDS: THIAMINE HCL 100 MG TABLET (FP) PO SCH (22:53)
[2019-02-18] MEDS: diazePAM 5 MG TABLET PO SCH ×2 (07:10→17:18)
[2019-02-18] MEDS: PRENATAL VITAMINS W/ FOLIC ACID TABLET (FP) PO SCH (09:49)
[2019-02-18] MEDS: ACETAMINOPHEN 325 MG TABLET (FP) PO PRN ×2 (09:50→16:32)
--- NOTE | 2019-02-18 13:34 | PN ---
S CIWA - CIWA Score Nausea/Vomitin-No Nausea/No Vomiting Muscle Tremors: None Anxiety: 1-Mildly Anxious Agitation: 0-Normal Activity Paroxysmal Sweats: No Perspiration Orientation: 0-Oriented Tacttile Disturbances: 0-None Auditory Disturbances: 0-None Visual Disturbances: 0-None Headache: 0-None Present CIWA-Ar Total Score: 1 BHS Progress Note (SOAP) Subjective: Patient denies current Withdrawal / Detox symptoms and reports that he feels well overall at this time. Objective: PATIENT A & O X 3. IN NO ACUTE DISTRESS. 02/18/19 13:32 Vital Signs Temperature 97.8 F 02/18/19 10:00 Pulse Rate 78 02/18/19 10:00 Respiratory Rate 18 02/18/19 10:00 Blood Pressure 106/60 02/18/19 10:00 O2 Sat by Pulse Oximetry (%) Laboratory Tests 02/17/19 02/17/19 02/17/19 12:10 12:10 12:10 WBC 6.6 RBC 3.99 L Hgb 11.9 Hct 36.6 MCV 91.7 MCH 30.0 MCHC 32.7 RDW 16.1 H Plt Count 319 MPV 7.7 Sodium 140 Potassium 4.4 Chloride 105 Carbon Dioxide 29 Anion Gap 6 L BUN 11.5 Creatinine 1.0 Est GFR (CKD-EPI)AfAm 97.08 Est GFR (CKD-EPI)NonAf 83.76 Random Glucose 100 Calcium 8.6 Total Bilirubin 0.4 AST 25 ALT 23 Alkaline Phosphatase 46 Total Protein 6.8 Albumin 3.3 L RPR Titer Nonreactive LABS NOTED. Assessment: 02/18/19 13:33 WITHDRAWAL SYMPTOMS. Plan: CONTINUE DETOX. PATIENT SCHEDULED FOR D/C FROM DETOX UNIT TOMORROW.
[2019-02-18] MEDS: THIAMINE HCL 100 MG TABLET (FP) PO SCH (22:26)
[2019-02-19] MEDS ORDERED: diazePAM 5 MG TABLET PO ONE (06:00)
[2019-02-19 06:11] VITALS: BP 98/60; PULSE 80; TEMP 97.9
--- NOTE | 2019-02-19 17:36 | DS ---
[facility] Detox Discharge Summary Admission Date: 02/16/19 Discharge Date: 02/19/19 - History Present History: Alcohol Dependence, Cocaine Dependence Additional Comments: Patient successfully completed detox and discharged safely. Patient discharged in stable condition. Instructed to follow up with PCP within 1-2 weeks. Pertinent Past History: Nicotine use disorder SAD Alcohol dependence Cocaine dependence Depression Schizophrenia - Physical Exam Results Vital Signs: Vital Signs Temperature 97.9 F 02/19/19 06:10 Pulse Rate 80 02/19/19 06:10 Respiratory Rate 16 02/19/19 06:10 Blood Pressure 98/60 02/19/19 06:10 O2 Sat by Pulse Oximetry (%) Pertinent Admission Physical Exam Findings: Withdrawal sxs Laboratory Tests 02/17/19 02/17/19 02/17/19 12:10 12:10 12:10 WBC 6.6 RBC 3.99 L Hgb 11.9 Hct 36.6 MCV 91.7 MCH 30.0 MCHC 32.7 RDW 16.1 H Plt Count 319 MPV 7.7 Sodium 140 Potassium 4.4 Chloride 105 Carbon Dioxide 29 Anion Gap 6 L BUN 11.5 Creatinine 1.0 Est GFR (CKD-EPI)AfAm 97.08 Est GFR (CKD-EPI)NonAf 83.76 Random Glucose 100 Calcium 8.6 Total Bilirubin 0.4 AST 25 ALT 23 Alkaline Phosphatase 46 Total Protein 6.8 Albumin 3.3 L RPR Titer Nonreactive Labs reviewed - Treatment Hospital Course: Detox Protocol Followed, Detoxed Safely, Responded well, Discharged Condition Good - Medication Discharge Medications: Ambulatory Orders Buspirone HCl [Buspar -] 30 mg PO HS 09/03/18 Risperidone [Risperdal -] 2 mg PO BID 09/03/18 - Diagnosis (1) Nicotine use disorder Status: Chronic (2) Alcohol dependence with withdrawal Status: Chronic Qualifiers: Complication of substance-induced condition: uncomplicated Qualified Code(s ): F10.230 - Alcohol dependence with withdrawal, uncomplicated (3) Cocaine dependence Status: Chronic Qualifiers: Substance use status: uncomplicated Qualified Code(s): F14.20 - Cocaine dependence, uncomplicated (4) Schizophrenia Status: Chronic Qualifiers: (5) Depression Status: Chronic - AMA Did Patient Leave Against Medical Advice: No (Instructed to follow up with PCP within 1-2 weeks)
== END 2019-02-19 09:30 | disposition home or self-care (01) | DRG 774 ==
LOC: YASAS 14:05 → Y6N 17:57
PROVIDERS: ADMIT Allergy & Immunology; ATTEND Allergy & Immunology
PROC: HZ2ZZZZ Detoxification Services for Substance Abuse Treatment (ICD-10-PCS; principal; 2019-02-16)
DX: F10.230 Alcohol dependence with withdrawal, uncomplicated (principal); F14.20 Cocaine dependence, uncomplicated; F17.210 Nicotine dependence, cigarettes, uncomplicated; F20.9 Schizophrenia, unspecified; F32.9 Major depressive disorder, single episode, unspecified; K59.00 Constipation, unspecified; R73.03 Prediabetes; Z88.0 Allergy status to penicillin; Z91.011 Allergy to milk products; Z91.5 Personal history of self-harm; Z59.0 Homelessness
CPT/HCPCS: 36415; 80053; 85027; 86593

== ENCOUNTER 2019-03-23 12:10 | Inpatient (IN) | payer OTHER ==
[2019-03-23 13:09] VITALS: BMI 22.4
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
[2019-03-23] MEDS ORDERED: IBUPROFEN 400 MG TABLET (FP) PO PRN (14:18)
[2019-03-23] MEDS ORDERED: MAGNESIUM HYDROX 2400MG/30ML ORAL SUSPENSION 30 ML CUP PO PRN (14:18)
[2019-03-23] MEDS ORDERED: hydrOXYzine PAMOATE 25 MG CAPSULE (FP) PO PRN (14:18)
[2019-03-23] MEDS ORDERED: MELATONIN 5 MG TABLETS PO PRN (14:18)
[2019-03-23] MEDS ORDERED: BISMUTH SUBSALICYLATE 524 MG/30 ML UD PO PRN (14:18)
[2019-03-23] MEDS ORDERED: MAG HYDROX/AL HYDROX/SIMETH 30 ML UNIT-DOSE CUP PO PRN (14:18)
[2019-03-23] MEDS ORDERED: MAGNESIUM CITRATE 300 ML BOTTLE PO PRN (14:18)
[2019-03-23] MEDS ORDERED: MENTHOL/PHENOL 1 EACH UD MM PRN (14:18)
[2019-03-23] MEDS ORDERED: ACETAMINOPHEN 325 MG TABLET (FP) PO PRN ×2 (14:18)
[2019-03-23] MEDS ORDERED: diazePAM 5 MG TABLET PO PRN (14:20)
[2019-03-23 16:47] LABS: HEMATOCRIT 35.1 % (35.4-49); HEMOGLOBIN 11.6 GM/dL (11.7-16.9); MCH 30.5 pg (25.7-33.7); MCHC 33.2 g/dl (32.0-35.9); MEAN CELL VOLUME 92.1 fl (80-96); MEAN PLT VOLUME 8.1 fl (7.5-11.1); PLATELET COUNT 293 K/MM3 (134-434); RBC 3.81 M/mm3 (4.00-5.60); RDW 16.4 % (11.9-15.9)
[2019-03-23] MEDS: diazePAM 5 MG TABLET PO SCH ×2 (16:50→22:40)
[2019-03-23 16:55] LABS: ALBUMIN 3.7 g/dl (3.4-5.0); BILIRUBIN,TOTAL 0.2 mg/dL (0.2-1); BLOOD UREA NITROGEN 16.4 mg/dL (7-18); CALCIUM 8.5 mg/dL (8.5-10.1); CREATININE 0.9 mg/dL (0.55-1.3); POTASSIUM 3.8 mmol/L (3.5-5.1)
[2019-03-23] MEDS: THIAMINE HCL 100 MG TABLET (FP) PO SCH (22:40)
[2019-03-24] MEDS: diazePAM 5 MG TABLET PO SCH (05:32)
[2019-03-24] MEDS ORDERED: PRENATAL VITAMINS W/ FOLIC ACID TABLET (FP) PO SCH (10:00)
--- NOTE | 2019-03-24 12:30 | PN ---
[facility] CIWA - CIWA Score Nausea/Vomitin Muscle Tremors: 2 Anxiety: 2 Agitation: 2 Paroxysmal Sweats: 2 Orientation: 0-Oriented Tacttile Disturbances: 1-Very Mild Itch/Numbness Auditory Disturbances: 0-None Visual Disturbances: 0-None Headache: 0-None Present CIWA-Ar Total Score: 12 S Progress Note (SOAP) Subjective: c/o on interrupted sleep, decrease appetite, nausea, chills Objective: Vital Signs Temperature 97.1 F L 03/24/19 09:49 Pulse Rate 88 03/24/19 09:49 Respiratory Rate 18 03/24/19 09:49 Blood Pressure 102/63 03/24/19 09:49 O2 Sat by Pulse Oximetry (%) Laboratory Last Values WBC 5.0 K/mm3 (4.0-10.0) 03/23/19 14:42 RBC 3.81 M/mm3 (4.00-5.60) L 03/23/19 14:42 Hgb 11.6 GM/dL (11.7-16.9) L 03/23/19 14:42 Hct 35.1 % (35.4-49) L 03/23/19 14:42 MCV 92.1 fl (80-96) 03/23/19 14:42 MCH 30.5 pg (25.7-33.7) 03/23/19 14:42 MCHC 33.2 g/dl (32.0-35.9) 03/23/19 14:42 RDW 16.4 % (11.9-15.9) H 03/23/19 14:42 Plt Count 293 K/MM3 (134-434) 03/23/19 14:42 MPV 8.1 fl (7.5-11.1) 03/23/19 14:42 Sodium 141 mmol/L (136-145) 03/23/19 14:42 Potassium 3.8 mmol/L (3.5-5.1) 03/23/19 14:42 Chloride 108 mmol/L (98-107) H 03/23/19 14:42 Carbon Dioxide 25 mmol/L (21-32) 03/23/19 14:42 Anion Gap 8 MMOL/L (8-16) 03/23/19 14:42 BUN 16.4 mg/dL (7-18) 03/23/19 14:42 Creatinine 0.9 mg/dL (0.55-1.3) 03/23/19 14:42 Est GFR (CKD-EPI)AfAm 110.27 03/23/19 14:42 Est GFR (CKD-EPI)NonAf 95.14 03/23/19 14:42 Random Glucose 102 mg/dL (74-106) 03/23/19 14:42 Calcium 8.5 mg/dL (8.5-10.1) 03/23/19 14:42 Total Bilirubin 0.2 mg/dL (0.2-1) 03/23/19 14:42 AST 24 U/L (15-37) 03/23/19 14:42 ALT 28 U/L (13-61) 03/23/19 14:42 Alkaline Phosphatase 38 U/L (45-117) L 03/23/19 14:42 Total Protein 7.0 g/dl (6.4-8.2) 03/23/19 14:42 Albumin 3.7 g/dl (3.4-5.0) 03/23/19 14:42 Assessment: 03/24/19 13:11 Aox3 no acute distress EENT WNL, cheilitis full ROM no gait disturbance withdrawal sx Plan: increase PO fluids continue detox continue to monitor
--- NOTE | 2019-03-24 13:30 | CONSULT ---
[facility] Psychiatric Consult - Data Date of interview: 03/24/19 Admission source: [facility] Identifying data: Patient is approached for psychiatric interview. Mr Cruz declines. " I don't need psychiatrists." Nursing staff is made aware.
[2019-03-24] MEDS: THIAMINE HCL 100 MG TABLET (FP) PO SCH (22:05)
[2019-03-25] MEDS ORDERED: diazePAM 5 MG TABLET PO ONE (06:00)
[2019-03-25 06:10] VITALS: BP 103/61; PULSE 69; TEMP 97.7
[2019-03-25] MEDS ORDERED: diazePAM 5 MG TABLET PO SCH (10:00)
--- NOTE | 2019-03-25 13:37 | DS ---
[facility] Detox Discharge Summary Admission Date: 03/23/19 Discharge Date: 03/25/19 - History Present History: Alcohol Dependence Additional Comments: Pt left AMA. Pt did not completed the detox protocol. Pt states he wants to go and take care of something. An attempt to let him stay and complete the detox protocol failed. Pt is encouraged to follow-up with an outpatient CD program and also to follow-up with his pmd. Pt verbalized understanding. Pt is alert and oriented x3 and in no acute respiratory distress. Pertinent Past History: Alcohol use disorder. - Physical Exam Results Vital Signs: Vital Signs Temperature 97.7 F 03/25/19 06:10 Pulse Rate 69 03/25/19 06:10 Respiratory Rate 18 03/25/19 06:10 Blood Pressure 103/61 03/25/19 06:10 O2 Sat by Pulse Oximetry (%) Vital Signs 03/25/19 06:10 Temperature 97.7 F Pulse Rate 69 Respiratory 18 Rate Blood Pressure 103/61 Laboratory Last Values WBC 5.0 K/mm3 (4.0-10.0) 03/23/19 14:42 RBC 3.81 M/mm3 (4.00-5.60) L 03/23/19 14:42 Hgb 11.6 GM/dL (11.7-16.9) L 03/23/19 14:42 Hct 35.1 % (35.4-49) L 03/23/19 14:42 MCV 92.1 fl (80-96) 03/23/19 14:42 MCH 30.5 pg (25.7-33.7) 03/23/19 14:42 MCHC 33.2 g/dl (32.0-35.9) 03/23/19 14:42 RDW 16.4 % (11.9-15.9) H 03/23/19 14:42 Plt Count 293 K/MM3 (134-434) 03/23/19 14:42 MPV 8.1 fl (7.5-11.1) 03/23/19 14:42 Sodium 141 mmol/L (136-145) 03/23/19 14:42 Potassium 3.8 mmol/L (3.5-5.1) 03/23/19 14:42 Chloride 108 mmol/L (98-107) H 03/23/19 14:42 Carbon Dioxide 25 mmol/L (21-32) 03/23/19 14:42 Anion Gap 8 MMOL/L (8-16) 03/23/19 14:42 BUN 16.4 mg/dL (7-18) 03/23/19 14:42 Creatinine 0.9 mg/dL (0.55-1.3) 03/23/19 14:42 Est GFR (CKD-EPI)AfAm 110.27 03/23/19 14:42 Est GFR (CKD-EPI)NonAf 95.14 03/23/19 14:42 Random Glucose 102 mg/dL (74-106) 03/23/19 14:42 Calcium 8.5 mg/dL (8.5-10.1) 03/23/19 14:42 Total Bilirubin 0.2 mg/dL (0.2-1) 03/23/19 14:42 AST 24 U/L (15-37) 03/23/19 14:42 ALT 28 U/L (13-61) 03/23/19 14:42 Alkaline Phosphatase 38 U/L (45-117) L 03/23/19 14:42 Total Protein 7.0 g/dl (6.4-8.2) 03/23/19 14:42 Albumin 3.7 g/dl (3.4-5.0) 03/23/19 14:42 Labs noted. Pertinent Admission Physical Exam Findings: withdrawal symptoms. - Treatment Hospital Course: Detox Protocol Followed - Medication Discharge Medications: Ambulatory Orders Buspirone HCl [Buspar -] 30 mg PO HS 09/03/18 Risperidone [Risperdal -] 2 mg PO BID 09/03/18 - Diagnosis (1) Alcohol dependence with withdrawal Current Visit: Yes Status: Chronic Qualifiers: Complication of substance-induced condition: uncomplicated Qualified Code(s ): F10.230 - Alcohol dependence with withdrawal, uncomplicated (2) Cocaine dependence Current Visit: Yes Status: Chronic Qualifiers: Substance use status: uncomplicated Qualified Code(s): F14.20 - Cocaine dependence, uncomplicated (3) Nicotine use disorder Current Visit: Yes Status: Chronic (4) BPH (benign prostatic hyperplasia) Current Visit: No Status: Chronic Qualifiers: Lower urinary tract symptom presence: symptoms absent Qualified Code(s): N40.0 - Benign prostatic hyperplasia without lower urinary tract symptoms - AMA Did Patient Leave Against Medical Advice: Yes
== END 2019-03-25 10:05 | disposition left against medical advice (07) | DRG 770 ==
LOC: YASAS 12:10 → Y3N 15:38
PROVIDERS: ADMIT Allergy & Immunology; ATTEND Allergy & Immunology
PROC: HZ2ZZZZ Detoxification Services for Substance Abuse Treatment (ICD-10-PCS; principal; 2019-03-23)
DX: F10.230 Alcohol dependence with withdrawal, uncomplicated (principal); F14.20 Cocaine dependence, uncomplicated; F17.210 Nicotine dependence, cigarettes, uncomplicated; N40.0 Benign prostatic hyperplasia without lower urinary tract symptoms; Z88.0 Allergy status to penicillin; Z91.011 Allergy to milk products; Z91.5 Personal history of self-harm; Z95.0 Presence of cardiac pacemaker
CPT/HCPCS: 36415; 80053; 85027

== ENCOUNTER 2019-06-08 09:35 | Inpatient (IN) | payer OTHER ==
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
[2019-06-08 13:47] VITALS: BMI 20.9
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
[2019-06-08] MEDS ORDERED: NICOTINE POLACRILEX 2 MG GUM BUC PRN (14:42)
[2019-06-08] MEDS ORDERED: MENTHOL/PHENOL 1 EACH UD MM PRN (14:42)
[2019-06-08] MEDS ORDERED: MAGNESIUM CITRATE 300 ML BOTTLE PO PRN (14:42)
[2019-06-08] MEDS ORDERED: IBUPROFEN 400 MG TABLET (FP) PO PRN (14:42)
[2019-06-08] MEDS ORDERED: MAG HYDROX/AL HYDROX/SIMETH 30 ML UNIT-DOSE CUP PO PRN (14:42)
[2019-06-08] MEDS ORDERED: METHOCARBAMOL 500 MG TABLET PO PRN (14:42)
[2019-06-08] MEDS ORDERED: MAGNESIUM HYDROX 2400MG/30ML ORAL SUSPENSION 30 ML CUP PO PRN (14:42)
[2019-06-08] MEDS ORDERED: chlordiazePOXIDE HCL 25 MG CAPSULE PO PRN (14:42)
[2019-06-08] MEDS ORDERED: ACETAMINOPHEN 325 MG TABLET (FP) PO PRN ×2 (14:42)
[2019-06-08] MEDS ORDERED: ONDANSETRON *ODT* 4 MG TABLET SL ONE (15:16)
[2019-06-08] MEDS ORDERED: BISMUTH SUBSALICYLATE 262 MG/15 ML BTL PO PRN (15:20)
[2019-06-08] MEDS: hydrOXYzine PAMOATE 25 MG CAPSULE (FP) PO SCH ×2 (17:56→23:07)
[2019-06-08] MEDS: chlordiazePOXIDE HCL 25 MG CAPSULE PO SCH ×2 (17:56→23:07)
[2019-06-08] MEDS: MELATONIN 5 MG TABLETS PO SCH (23:06)
[2019-06-08] MEDS: THIAMINE HCL 100 MG TABLET (FP) PO SCH (23:07)
[2019-06-09] MEDS: chlordiazePOXIDE HCL 25 MG CAPSULE PO SCH ×4 (05:41→22:31)
[2019-06-09] MEDS: hydrOXYzine PAMOATE 25 MG CAPSULE (FP) PO SCH ×5 (05:42→22:30)
--- NOTE | 2019-06-09 09:35 | PN ---
[facility] CIWA - CIWA Score Nausea/Vomitin-No Nausea/No Vomiting Muscle Tremors: None Anxiety: 1-Mildly Anxious Agitation: 0-Normal Activity Paroxysmal Sweats: No Perspiration Orientation: 0-Oriented Tacttile Disturbances: 0-None Auditory Disturbances: 0-None Visual Disturbances: 0-None Headache: 0-None Present CIWA-Ar Total Score: 1 S Progress Note (SOAP) Subjective: Mild right wrist pain Objective: 06/09/19 09:32 Vital Signs Temperature 98.3 F 06/09/19 06:12 Pulse Rate 64 06/09/19 06:12 Respiratory Rate 18 06/09/19 06:45 Blood Pressure 101/54 L 06/09/19 06:12 O2 Sat by Pulse Oximetry (%) PE Gnl: WDWN, in minimal distress due to right hand pain Mental status": awake, alert, nl mentation Coord: grossly nl Ext: right wrist/hand in soft brace and wrapped Assessment: 06/09/19 09:33 1. Alcohol use disorder 2. Hx schizophrenia 3. right 2nd metacarpal comminuted fracture 4. hx of cough Plan: 1. Librium withdrawal protocol 2. will need Ortho follow up 3. check routine labs 4. chest x ray ordered
[2019-06-09] MEDS: PRENATAL VITAMINS W/ FOLIC ACID TABLET (FP) PO SCH (10:10)
[2019-06-09 10:35] LABS: HEMATOCRIT 33.1 % (35.4-49); HEMOGLOBIN 11.2 GM/dL (11.7-16.9); MCH 30.1 pg (25.7-33.7); MCHC 33.7 g/dl (32.0-35.9); MEAN CELL VOLUME 89.4 fl (80-96); PLATELET COUNT 449 K/MM3 (134-434); RDW 14.2 % (11.9-15.9); WHITE BLOOD COUNT 4.7 K/mm3 (4.0-10.0)
[2019-06-09 10:40] LABS: ALBUMIN 3.6 g/dl (3.4-5.0); BILIRUBIN,TOTAL 0.3 mg/dL (0.2-1); BLOOD UREA NITROGEN 13.5 mg/dL (7-18); CALCIUM 8.9 mg/dL (8.5-10.1); CREATININE 1.1 mg/dL (0.55-1.3); POTASSIUM 3.8 mmol/L (3.5-5.1); TOT PROT 7.4 g/dl (6.4-8.2)
--- NOTE | 2019-06-09 12:06 | CONSULT ---
[facility] Psychiatric Consult - Data Date of interview: 06/09/19 Admission source: [facility] Identifying data: Patient is approached at [facility] for the psychiatric interview. Mr Cruz refuses. " Leave me alone. I don't have anything to say to psychiatrists." Nursing staff is made aware.
[2019-06-09] MEDS: guaiFENesin 200 MG/10 ML 10 ML UNIT-DOSE CUPS PO SCH (19:29)
[2019-06-09] MEDS: MELATONIN 5 MG TABLETS PO SCH (22:30)
[2019-06-09] MEDS: THIAMINE HCL 100 MG TABLET (FP) PO SCH (22:30)
[2019-06-10] MEDS: guaiFENesin 200 MG/10 ML 10 ML UNIT-DOSE CUPS PO SCH ×5 (00:20→23:45)
[2019-06-10] MEDS: hydrOXYzine PAMOATE 25 MG CAPSULE (FP) PO SCH ×5 (05:21→23:46)
[2019-06-10] MEDS: chlordiazePOXIDE HCL 25 MG CAPSULE PO SCH ×4 (05:22→23:45)
[2019-06-10] MEDS: PRENATAL VITAMINS W/ FOLIC ACID TABLET (FP) PO SCH (10:20)
--- NOTE | 2019-06-10 10:40 | PN ---
S CIWA - CIWA Score Nausea/Vomitin-No Nausea/No Vomiting Muscle Tremors: None Anxiety: 3 Agitation: 0-Normal Activity Paroxysmal Sweats: 3 Orientation: 0-Oriented Tacttile Disturbances: 0-None Auditory Disturbances: 0-None Visual Disturbances: 0-None Headache: 0-None Present CIWA-Ar Total Score: 6 BHS Progress Note (SOAP) Subjective: c/o sweats and anxiety. Objective: 06/10/19 10:39 Vital Signs 06/10/19 06/10/19 06/10/19 03:30 06:21 06:30 Temperature 97.2 F L Pulse Rate 96 H Respiratory 18 18 16 Rate Blood Pressure 98/67 06/10/19 08:44 Temperature 97.8 F Pulse Rate 114 H Respiratory 20 Rate Blood Pressure 135/68 Laboratory Last Values WBC 4.7 K/mm3 (4.0-10.0) 06/09/19 07:45 RBC 3.70 M/mm3 (4.00-5.60) L 06/09/19 07:45 Hgb 11.2 GM/dL (11.7-16.9) L 06/09/19 07:45 Hct 33.1 % (35.4-49) L 06/09/19 07:45 MCV 89.4 fl (80-96) 06/09/19 07:45 MCH 30.1 pg (25.7-33.7) 06/09/19 07:45 MCHC 33.7 g/dl (32.0-35.9) 06/09/19 07:45 RDW 14.2 % (11.9-15.9) D 06/09/19 07:45 Plt Count 449 K/MM3 (134-434) H D 06/09/19 07:45 MPV 8.0 fl (7.5-11.1) 06/09/19 07:45 Sodium 141 mmol/L (136-145) 06/09/19 07:45 Potassium 3.8 mmol/L (3.5-5.1) 06/09/19 07:45 Chloride 106 mmol/L (98-107) 06/09/19 07:45 Carbon Dioxide 29 mmol/L (21-32) 06/09/19 07:45 Anion Gap 7 MMOL/L (8-16) L 06/09/19 07:45 BUN 13.5 mg/dL (7-18) 06/09/19 07:45 Creatinine 1.1 mg/dL (0.55-1.3) 06/09/19 07:45 Est GFR (CKD-EPI)AfAm 85.91 06/09/19 07:45 Est GFR (CKD-EPI)NonAf 74.12 06/09/19 07:45 Random Glucose 103 mg/dL (74-106) 06/09/19 07:45 Calcium 8.9 mg/dL (8.5-10.1) 06/09/19 07:45 Total Bilirubin 0.3 mg/dL (0.2-1) 06/09/19 07:45 AST 16 U/L (15-37) 06/09/19 07:45 ALT 21 U/L (13-61) 06/09/19 07:45 Alkaline Phosphatase 50 U/L (45-117) 06/09/19 07:45 Total Protein 7.4 g/dl (6.4-8.2) 06/09/19 07:45 Albumin 3.6 g/dl (3.4-5.0) 06/09/19 07:45 RPR Titer Nonreactive (NONREACTIVE) 06/09/19 07:45 Labs noted. Assessment: 06/10/19 10:41 AOX3, in no acute respiratory distress. Full ROM, ambulating in the unit. Withdrawal symptoms. Plan: continue detox.
[2019-06-10] MEDS: THIAMINE HCL 100 MG TABLET (FP) PO SCH (23:45)
[2019-06-10] MEDS: MELATONIN 5 MG TABLETS PO SCH (23:46)
[2019-06-11] MEDS ORDERED: chlordiazePOXIDE HCL 10 MG CAPSULE PO PRN
[2019-06-11] MEDS: chlordiazePOXIDE HCL 10 MG CAPSULE PO SCH ×2 (05:19→10:29)
[2019-06-11] MEDS: hydrOXYzine PAMOATE 25 MG CAPSULE (FP) PO SCH ×3 (05:19→13:08)
[2019-06-11] MEDS: guaiFENesin 200 MG/10 ML 10 ML UNIT-DOSE CUPS PO SCH ×2 (06:03→13:08)
[2019-06-11] MEDS: PRENATAL VITAMINS W/ FOLIC ACID TABLET (FP) PO SCH (10:28)
--- NOTE | 2019-06-11 11:36 | PN ---
S CIWA - CIWA Score Nausea/Vomitin-No Nausea/No Vomiting Muscle Tremors: 1-None Visible, but [place] Anxiety: 1-Mildly Anxious Agitation: 0-Normal Activity Paroxysmal Sweats: 1-Minimal Palms Moist Orientation: 0-Oriented Tacttile Disturbances: 0-None Auditory Disturbances: 0-None Visual Disturbances: 1-Very Mild Sensitivity Headache: 0-None Present CIWA-Ar Total Score: 4 BHS Progress Note (SOAP) Subjective: 59 years old male admitted on 06/08/19 for alcohol withdrawal sx management treating with librium detox regiment right forearm 1/2 cast and faustino bandage in place right fingers warm and mobile denies pain encourage elevation on the right arm Objective: 06/11/19 11:36 Vital Signs Temperature 97.8 F 06/11/19 06:17 Pulse Rate 84 06/11/19 06:17 Respiratory Rate 18 06/11/19 06:17 Blood Pressure 107/63 06/11/19 06:17 O2 Sat by Pulse Oximetry (%) Laboratory Last Values WBC 4.7 K/mm3 (4.0-10.0) 06/09/19 07:45 RBC 3.70 M/mm3 (4.00-5.60) L 06/09/19 07:45 Hgb 11.2 GM/dL (11.7-16.9) L 06/09/19 07:45 Hct 33.1 % (35.4-49) L 06/09/19 07:45 MCV 89.4 fl (80-96) 06/09/19 07:45 MCH 30.1 pg (25.7-33.7) 06/09/19 07:45 MCHC 33.7 g/dl (32.0-35.9) 06/09/19 07:45 RDW 14.2 % (11.9-15.9) D 06/09/19 07:45 Plt Count 449 K/MM3 (134-434) H D 06/09/19 07:45 MPV 8.0 fl (7.5-11.1) 06/09/19 07:45 Sodium 141 mmol/L (136-145) 06/09/19 07:45 Potassium 3.8 mmol/L (3.5-5.1) 06/09/19 07:45 Chloride 106 mmol/L (98-107) 06/09/19 07:45 Carbon Dioxide 29 mmol/L (21-32) 06/09/19 07:45 Anion Gap 7 MMOL/L (8-16) L 06/09/19 07:45 BUN 13.5 mg/dL (7-18) 06/09/19 07:45 Creatinine 1.1 mg/dL (0.55-1.3) 06/09/19 07:45 Est GFR (CKD-EPI)AfAm 85.91 06/09/19 07:45 Est GFR (CKD-EPI)NonAf 74.12 06/09/19 07:45 Random Glucose 103 mg/dL (74-106) 06/09/19 07:45 Calcium 8.9 mg/dL (8.5-10.1) 06/09/19 07:45 Total Bilirubin 0.3 mg/dL (0.2-1) 06/09/19 07:45 AST 16 U/L (15-37) 06/09/19 07:45 ALT 21 U/L (13-61) 06/09/19 07:45 Alkaline Phosphatase 50 U/L (45-117) 06/09/19 07:45 Total Protein 7.4 g/dl (6.4-8.2) 06/09/19 07:45 Albumin 3.6 g/dl (3.4-5.0) 06/09/19 07:45 RPR Titer Nonreactive (NONREACTIVE) 06/09/19 07:45 lab noted Assessment: 06/11/19 11:36 alcohol withdrawal Plan: librium regiment
[2019-06-11 17:37] VITALS: BP 133/78; PULSE 116; TEMP 98.4
--- NOTE | 2019-06-11 18:12 | PN ---
[facility] Progress Note Note: Requesting to leave as is having difficulties w/ another patient. Offered to change floors but declined. Alert and oriented. Slight anxiety. No other w/drawal symptoms noted. Vital Signs 06/11/19 06/11/19 12:59 17:16 Temperature 98.9 F 98.4 F Pulse Rate 97 H 116 H Respiratory 20 18 Rate Blood Pressure 119/68 133/78 Reviewed labs. Splint in place. Fingers warm/mobile w/ cap refill brisk. States will f/u w/ evaluation and treatment of (R) wrist fracture. Discussed relationship of nicotine w/ alcohol relapse. Encouraged cessation. Agrees to nicotine patch and gum at discharge. Discussed tolerance and risk of acute intoxication upon discharge. States: "Is in an out-patient program and will attend".
[2019-06-11] MEDS ORDERED: NICOTINE 7 MG/24 HOURS TOPICAL PATCH TD SCH (18:15)
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
[2019-06-12] MEDS ORDERED: chlordiazePOXIDE HCL 10 MG CAPSULE PO SCH (05:00)
[2019-06-13] MEDS ORDERED: chlordiazePOXIDE HCL 10 MG CAPSULE PO ONE (05:00)
== END 2019-06-11 18:26 | disposition home or self-care (01) | DRG 774 ==
LOC: YASAS 09:35 → Y3N 14:56
PROVIDERS: ADMIT Allergy & Immunology; ATTEND Allergy & Immunology
PROC: HZ2ZZZZ Detoxification Services for Substance Abuse Treatment (ICD-10-PCS; principal; 2019-06-08)
DX: F10.230 Alcohol dependence with withdrawal, uncomplicated (principal); F14.20 Cocaine dependence, uncomplicated; F17.210 Nicotine dependence, cigarettes, uncomplicated; F20.9 Schizophrenia, unspecified; J34.89 Other specified disorders of nose and nasal sinuses; R05 Cough; E73.9 Lactose intolerance, unspecified; R63.4 Abnormal weight loss; Z68.21 Body mass index [BMI] 21.0-21.9, adult; Z91.5 Personal history of self-harm; Z59.0 Homelessness; S62.91XD Unspecified fracture of right hand, subsequent encounter for fracture with routine healing
CPT/HCPCS: 36415; 80053; 85027; 86593

== ENCOUNTER 2019-06-08 10:29 | Emergency (ER) | payer OTHER ==
[2019-06-08 10:41] VITALS: BP 100/60; PULSE 90; TEMP 98.2; BMI 22.8
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
[2019-06-08] MEDS ORDERED: IBUPROFEN 600 MG TABLET (FP) PO ONE ×2 (11:41→11:43)
== END 2019-06-08 12:00 | disposition left against medical advice (07) ==
LOC: JERFT 10:29
PROC: 2W3CX1Z Immobilization of Right Lower Arm using Splint (ICD-10-PCS; principal; 2019-06-08)
DX: S62.390A Other fracture of second metacarpal bone, right hand, initial encounter for closed fracture (principal); Y04.2XXA Assault by strike against or bumped into by another person, initial encounter; Y93.89 Activity, other specified; Y92.89 Other specified places as the place of occurrence of the external cause; Y99.8 Other external cause status
CPT/HCPCS: 29126; 73110-TC-RT-FY; 73130-TC-RT-FY; 73200-TC-RT; 99284-25

== ENCOUNTER 2019-11-05 10:22 | Inpatient (IN) | payer OTHER ==
--- NOTE | 2019-11-05 12:59 | BHS.RME ---
Substance Use & Tx History - Substance Use History Alcohol Substance amount: 1 pint of bacardi/6 packs of 16 ozs of beer Frequency of use: Daily Substance route: Oral Date of Last Use: 11/04/19 Cocaine-Crack Substance amount: 100$ Frequency of use: Less than 3 times per week Substance route: Smoking Date of Last Use: 11/04/19 - Last Treatment Date of last treatment: [facility] 08/09/19 left [facility] Where was last treatment: Detox Physical/Psych/Mental Status - Behavior Eye Contact: Normal - Cooperativeness Cooperativeness: Cooperative - Thinking Thought Processes: Logical Thought content: Future oriented - Physical Health Problems Is patient presently having any pain?: No Does patient presently have any injuries (include location): No Does patient currently have a fever: No CIWA Nausea/Vomitin Muscle Tremors: 3 Anxiety: 2 Agitation: 2 Paroxysmal Sweats: 1-Minimal Palms Moist Orientation: 0-Oriented Tacttile Disturbances: 1-Very Mild Itch/Numbness Auditory Disturbances: 0-None Visual Disturbances: 0-None Headache: 2-Mild CIWA-Ar Total Score: 13
--- NOTE | 2019-11-05 13:07 | HP ---
CIWA Score Nausea/Vomitin Muscle Tremors: 3 Anxiety: 2 Agitation: 2 Paroxysmal Sweats: 1-Minimal Palms Moist Orientation: 0-Oriented Tacttile Disturbances: 1-Very Mild Itch/Numbness Auditory Disturbances: 0-None Visual Disturbances: 0-None Headache: 2-Mild CIWA-Ar Total Score: 13 - Admission Criteria OASAS Guidelines: Admission for Medically Managed Detox: Requires at least one of the followin. CIWA greater than 12 2. Seizures within the past 24 hours 3. Delirium tremens within the past 24 hours 4. Hallucinations within the past 24 hours 5. Acute intervention needed for co occurring medical disorder 6. Acute intervention needed for co occurring psychiatric disorder 7. Severe withdrawal that cannot be handled at a lower level of care (continued vomiting, continued diarrhea, abnormal vital signs) requiring intravenous medication and/or fluids 8. 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 Psych: Yes: Schizophrenia - Past Surgical History Past Surgical History: Yes: Hernia Repair - Smoking History Smoking history: Former smoker Have you smoked in the past 12 months: Yes Aproximately how many cigarettes per day: 2 If you are a former smoker, when did you quit?: 4months ago - Alcohol/Substance Use Hx Alcohol Use: Yes History of Substance Use: reports: Cocaine Date of Last Use: 11/04/19 - Social History Usual Living Arrangement: Yes: Other (homeless) Do you think of yourself as: Straight/Heterosexual ADL: Support Services Occupation: unemployed disabled History of Recent Travel: No Other Social History: living in [place],unemployed,on disability,no legal issue,. 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 Loss EENT: reports: Nose Congestion Respiratory: reports: No Symptoms reported Cardiac: reports: No Symptoms Reported GI: reports: Nausea, Poor Appetite, Abdominal cramping : reports: No Symptoms Reported Musculoskeletal: reports: Back Pain, Muscle Pain Integumentary: reports: Dryness Neuro: reports: Tremors Endocrine: reports: No Symptoms Reported Hematology: reports: No Symptoms Reported Psychiatric: reports: No Sypmtoms Reported, Judgement Intact, Mood/Affect Appropiate, Orientated x3, other (schzophrenia) Patient History - Patient Medical History Hx Anemia: No Hx Asthma: No Hx Chronic Obstructive Pulmonary Disease (COPD): No Hx Cancer: No Hx Cardiac Disorders: No Hx Congestive Heart Failure: No Hx Hypertension: No Hx Hypercholesterolemia: No Hx Pacemaker: No HX Cerebrovascular Accident: No Hx Seizures: No Hx Dementia: No Hx Diabetes: No Hx Gastrointestinal Disorders: No Hx Liver Disease: No Hx Genitourinary Disorders: No Hx Sexually Transmitted Disorders: No Hx Renal Disease (ESRD): No Hx Thyroid Disease: No Hx Human Immunodeficiency Virus (HIV): No (04/23 negative) Hx Hepatitis C: No Hx Depression: Yes Hx Suicide Attempt: Yes (Pt states it was, "a long time ago" cutter) Hx Bipolar Disorder: No Hx Schizophrenia: Yes Other Medical History: no suicdal,no homicidal - Patient Surgical History Past Surgical History: No Hx Neurologic Surgery: No Hx Cataract Extraction: No Hx Cardiac Surgery: No Hx Lung Surgery: No Hx Breast Surgery: No Hx Breast Biopsy: No Hx Abdominal Surgery: Yes ( inguinal hernia repair 1979) Hx Appendectomy: No Hx Cholecystectomy: No Hx Genitourinary Surgery: No Hx Section: No Hx Orthopedic Surgery: No Anesthesia Reaction: No - PPD History Previous Implant?: Yes Documented Results: Negative w/proof Implanted On Prior R Admission?: Yes Date: 02/18/19 Results: 0 mm PPD to be Administered?: No - Smoking Cessation Smoking history: Former smoker Have you smoked in the past 12 months: Yes Aproximately how many cigarettes per day: 2 If you are a former smoker, when did you quit?: 4months ago Cigars Per Day: 0 Hx Chewing Tobacco Use: No Initiated information on smoking cessation: No - Substance & Tx. History Hx Alcohol Use: Yes Hx Substance Use: Yes Substance Use Type: Alcohol, Cocaine Hx Substance Use Treatment: Yes ([facility] 08/09/19 not completed) - Substances abused Alcohol Substance route: Oral Frequency: Daily Amount used: 1 pint of bacardi/6 packs of 16 ozs of beer Age of first use: 18 Date of last use: 11/04/19 Crack Substance route: Smoking Frequency: 3-6 times per week Amount used: 100$ Age of first use: 24 Date of last use: 11/04/19 Admission Physical Exam S - Vital Signs Vital Signs: t97.3,p73,bp 114/76,r18,pulse ox 99 - Physical General Appearance: Yes: Moderate Distress, Tremorous, Irritable, Anxious HEENTM: Yes: Normal ENT Inspection, OL[place], Pharynx Normal Respiratory: Yes: Lungs Clear, Normal Breath Sounds, No Respiratory Distress Neck: Yes: Supple, Trachea in good position Breast: Yes: Within Normal Limits Cardiology: Yes: Within Normal Limits, Regular Rhythm, Regular Rate, S1, S2 Abdominal: Yes: Within Normal Limits, Normal Bowel Sounds, Non Tender, Flat, Soft Genitourinary: Yes: Within Normal Limits Back: Yes: Muscle Spasm Musculoskeletal: Yes: Back pain, Muscle Pain Extremities: Yes: Tremors (contussion of right forearm) Integumentary: Yes: Dry - Diagnostic (1) Alcohol dependence with withdrawal Current Visit: No Status: Acute Qualifiers: Complication of substance-induced condition: uncomplicated Qualified Code(s): F10.230 - Alcohol dependence with withdrawal, uncomplicated (2) Cocaine dependence Current Visit: No Status: Chronic Qualifiers: Substance use status: uncomplicated Qualified Code(s): F14.20 - Cocaine dependence, uncomplicated (3) Nicotine use disorder Current Visit: No Status: Chronic (4) Schizophrenia Current Visit: No Status: Chronic Qualifiers: Comment: Self-report.On medications (confirmed at [facility] # [id number]).Patient is affiliated with [facility] for psychiatric OPD care. (5) Weight loss Current Visit: No Status: Chronic (6) Syncope Current Visit: Yes Status: Acute (7) Frequent falls Current Visit: Yes Status: Acute (8) Contusion Current Visit: Yes Status: Acute Cleared for Admission S - Detox or Rehab [facility] Level of Care: Medically Managed Detox Regimen/Protocol: Valium Breathalyzer - Breathalyzer Breathalyzer: 0.064 Urine Drug Screen - Test Device Lot number: [id number] Expiration date: 11/02/20 - Control Is test valid?: Yes - Results Drug screen NEGATIVE: No Urine drug screen results: RAMIRO-Cocaine Inpatient Rehab Admission - Rehab Decision to Admit Inpatient rehab admission?: No
[2019-11-05] MEDS ORDERED: ONDANSETRON *ODT* 4 MG TABLET SL ONE (13:27)
[2019-11-05] MEDS ORDERED: MENTHOL/PHENOL 1 EACH UD MM PRN (13:27)
[2019-11-05] MEDS ORDERED: IBUPROFEN 400 MG TABLET (FP) PO PRN (13:27)
[2019-11-05] MEDS ORDERED: BISMUTH SUBSALICYLATE 524 MG/30 ML UD PO PRN (13:27)
[2019-11-05] MEDS ORDERED: diazePAM 5 MG TABLET PO PRN (13:27)
[2019-11-05] MEDS ORDERED: MAGNESIUM CITRATE 300 ML BOTTLE PO PRN (13:27)
[2019-11-05] MEDS ORDERED: METHOCARBAMOL 500 MG TABLET PO PRN (13:27)
[2019-11-05] MEDS ORDERED: ACETAMINOPHEN 325 MG TABLET (FP) PO PRN ×2 (13:27)
[2019-11-05] MEDS ORDERED: MAG HYDROX/AL HYDROX/SIMETH 30 ML UNIT-DOSE CUP PO PRN (13:27)
[2019-11-05] MEDS ORDERED: MAGNESIUM HYDROX 2400MG/30ML ORAL SUSPENSION 30 ML CUP PO PRN (13:27)
[2019-11-05 13:57] VITALS: BMI 19.3
[2019-11-05] MEDS: hydrOXYzine PAMOATE 25 MG CAPSULE (FP) PO SCH ×2 (14:58→22:34)
[2019-11-05] MEDS: BACITRACIN 15 GM TUBE TOPICAL OINTMENT TP SCH (15:00)
[2019-11-05] MEDS: THIAMINE HCL 100 MG TABLET (FP) PO SCH (22:34)
[2019-11-05] MEDS: diazePAM 5 MG TABLET PO SCH (22:35)
[2019-11-05] MEDS: MELATONIN 5 MG TABLETS PO SCH (22:35)
[2019-11-06] MEDS: hydrOXYzine PAMOATE 25 MG CAPSULE (FP) PO SCH ×2 (00:21→05:44)
[2019-11-06] MEDS: BACITRACIN 15 GM TUBE TOPICAL OINTMENT TP SCH ×3 (00:21→22:16)
[2019-11-06] MEDS: diazePAM 5 MG TABLET PO SCH ×3 (05:44→23:00)
[2019-11-06] MEDS ORDERED: hydrOXYzine PAMOATE 25 MG CAPSULE (FP) PO PRN (08:34)
[2019-11-06] MEDS: PRENATAL VITAMINS W/ FOLIC ACID TABLET (FP) PO SCH (10:48)
[2019-11-06 10:58] LABS: HEMOGLOBIN 11.9 GM/dL (11.7-16.9); MCH 28.8 pg (25.7-33.7); MCHC 32.1 g/dl (32.0-35.9); MEAN CELL VOLUME 89.7 fl (80-96); PLATELET COUNT 346 K/MM3 (134-434); RBC 4.13 M/mm3 (4.00-5.60); RDW 14.8 % (11.9-15.9); WHITE BLOOD COUNT 3.8 K/mm3 (4.0-10.0)
--- NOTE | 2019-11-06 11:08 | PN ---
S CIWA - CIWA Score Nausea/Vomitin-Mild Nausea/No Vomiting Muscle Tremors: 2 Anxiety: 2 Agitation: 2 Paroxysmal Sweats: No Perspiration Orientation: 0-Oriented Tacttile Disturbances: 1-Very Mild Itch/Numbness Auditory Disturbances: 0-None Visual Disturbances: 0-None Headache: 1-Very Mild CIWA-Ar Total Score: 9 BHS Progress Note (SOAP) Subjective: alert,irritable,anxious,interrupted sleep,tremor,aching pain Objective: 11/06/19 11:07 Vital Signs Temperature 97.7 F 11/06/19 08:44 Pulse Rate 92 H 11/06/19 08:44 Respiratory Rate 18 11/06/19 08:44 Blood Pressure 98/65 11/06/19 08:44 O2 Sat by Pulse Oximetry (%) 100 11/06/19 05:20 11/06/19 11:07 labs pending Assessment: 11/06/19 11:07 withdrawal symptom Plan: continue detox librium regimen,encourage oral fluid,ensure plus 12o mls po tid with each meal,psychitric evaluation for schizophrenia
[2019-11-06 11:23] LABS: BLOOD UREA NITROGEN 11.3 mg/dL (7-18); POTASSIUM 4.5 mmol/L (3.5-5.1)
[2019-11-06 11:28] LABS: BILIRUBIN,TOTAL 0.4 mg/dL (0.2-1); TOT PROT 6.7 g/dl (6.4-8.2)
--- NOTE | 2019-11-06 14:04 | CONSULT ---
[facility] Psychiatric Consult - Data Date of interview: 11/06/19 Admission source: Self-referred Identifying data: Mr Cruz is a 59 years old single Black male, unemployed receiving SSI, homeless seeking detox treatment for alcohol and cocaine Substance Abuse History: Reports history of alcohol and cocaine use. Refer to addiction counselor's summary for further information Medical History: Significant for arthritis of both shoulders, benign prostatic hypertrophy and chronic shoulder pain (left). Psychiatric History: Patient was approached at bedside. Told flex o writer operator in a irritable way:" I don't want to take medications"
[2019-11-06] MEDS: THIAMINE HCL 100 MG TABLET (FP) PO SCH (22:16)
[2019-11-06] MEDS: MELATONIN 5 MG TABLETS PO SCH (22:16)
[2019-11-07] MEDS: diazePAM 5 MG TABLET PO SCH ×2 (06:20→17:22)
[2019-11-07] MEDS: BACITRACIN 15 GM TUBE TOPICAL OINTMENT TP SCH ×2 (11:07→22:42)
[2019-11-07] MEDS: PRENATAL VITAMINS W/ FOLIC ACID TABLET (FP) PO SCH (11:07)
--- NOTE | 2019-11-07 11:08 | PN ---
S CIWA - CIWA Score Nausea/Vomitin-Mild Nausea/No Vomiting Muscle Tremors: 2 Anxiety: 2 Agitation: 2 Paroxysmal Sweats: No Perspiration Orientation: 0-Oriented Tacttile Disturbances: 0-None Auditory Disturbances: 0-None Visual Disturbances: 0-None Headache: 1-Very Mild CIWA-Ar Total Score: 8 BHS Progress Note (SOAP) Subjective: alert,irritable,anxious,interrupted sleep,aching pain in the body and back Objective: 11/07/19 11:05 Vital Signs Temperature 97.1 F L 11/07/19 08:44 Pulse Rate 106 H 11/07/19 08:44 Respiratory Rate 17 11/07/19 08:44 Blood Pressure 118/59 L 11/07/19 08:44 O2 Sat by Pulse Oximetry (%) 100 11/07/19 05:26 11/07/19 11:06 Laboratory Last Values WBC 3.8 K/mm3 (4.0-10.0) L 11/06/19 08:05 RBC 4.13 M/mm3 (4.00-5.60) 11/06/19 08:05 Hgb 11.9 GM/dL (11.7-16.9) 11/06/19 08:05 Hct 37.0 % (35.4-49) 11/06/19 08:05 MCV 89.7 fl (80-96) 11/06/19 08:05 MCH 28.8 pg (25.7-33.7) 11/06/19 08:05 MCHC 32.1 g/dl (32.0-35.9) 11/06/19 08:05 RDW 14.8 % (11.9-15.9) D 11/06/19 08:05 Plt Count 346 K/MM3 (134-434) 11/06/19 08:05 MPV 8.0 fl (7.5-11.1) 11/06/19 08:05 Sodium 142 mmol/L (136-145) 11/06/19 08:05 Potassium 4.5 mmol/L (3.5-5.1) 11/06/19 08:05 Chloride 108 mmol/L (98-107) H 11/06/19 08:05 Carbon Dioxide 27 mmol/L (21-32) 11/06/19 08:05 Anion Gap 7 MMOL/L (8-16) L 11/06/19 08:05 BUN 11.3 mg/dL (7-18) 11/06/19 08:05 Creatinine 1.0 mg/dL (0.55-1.3) 11/06/19 08:05 Est GFR (CKD-EPI)AfAm 96.40 11/06/19 08:05 Est GFR (CKD-EPI)NonAf 83.18 11/06/19 08:05 Random Glucose 95 mg/dL (74-106) 11/06/19 08:05 Calcium 9.0 mg/dL (8.5-10.1) 11/06/19 08:05 Total Bilirubin 0.4 mg/dL (0.2-1) 11/06/19 08:05 AST 15 U/L (15-37) 11/06/19 08:05 ALT 21 U/L (13-61) 11/06/19 08:05 Alkaline Phosphatase 44 U/L (45-117) L 11/06/19 08:05 Total Protein 6.7 g/dl (6.4-8.2) 11/06/19 08:05 Albumin 3.0 g/dl (3.4-5.0) L 11/06/19 08:05 Syphilis Serology Reactive (NONREACTIVE) A* 11/06/19 08:05 RPR Titer Reactive 1:1 (NONREACTIVE) H 11/06/19 08:05 COVID-19 (KERRY) Not detected (Not Detected) 11/05/19 14:30 HIV Ag/Ab Combo Qual Negative (NEGATIVE) 11/06/19 08:05 patient was adequately treated for syhilis 30 years ago Assessment: 11/07/19 11:07 withdrawal symptom Plan: continue detox valium regimen,discharge in am to [facility]
[2019-11-07] MEDS: THIAMINE HCL 100 MG TABLET (FP) PO SCH (22:42)
[2019-11-07] MEDS: MELATONIN 5 MG TABLETS PO SCH (22:42)
[2019-11-08] MEDS ORDERED: diazePAM 5 MG TABLET PO ONE (06:00)
[2019-11-08 06:15] VITALS: BP 120/70; PULSE 86; TEMP 97.1
[2019-11-08] MEDS: BACITRACIN 15 GM TUBE TOPICAL OINTMENT TP SCH (11:23)
[2019-11-08] MEDS: PRENATAL VITAMINS W/ FOLIC ACID TABLET (FP) PO SCH (11:23)
--- NOTE | 2019-11-08 12:26 | PN ---
[facility] CIWA - CIWA Score Nausea/Vomitin-No Nausea/No Vomiting Muscle Tremors: None Anxiety: 1-Mildly Anxious Agitation: 0-Normal Activity Paroxysmal Sweats: No Perspiration Orientation: 0-Oriented Tacttile Disturbances: 0-None Auditory Disturbances: 0-None Visual Disturbances: 0-None Headache: 0-None Present CIWA-Ar Total Score: 1 BHS Progress Note (SOAP) Subjective: alert,no complaint Objective: 11/08/19 12:22 Vital Signs Temperature 97.1 F L 11/08/19 05:31 Pulse Rate 86 11/08/19 05:31 Respiratory Rate 20 11/08/19 05:31 Blood Pressure 120/70 11/08/19 05:31 O2 Sat by Pulse Oximetry (%) 99 11/08/19 05:31 11/08/19 12:22 Vital Signs Temperature 97.1 F L 11/08/19 05:31 Pulse Rate 86 11/08/19 05:31 Respiratory Rate 20 11/08/19 05:31 Blood Pressure 120/70 11/08/19 05:31 O2 Sat by Pulse Oximetry (%) 99 11/08/19 05:31 11/08/19 12:24 Laboratory Last Values WBC 3.8 K/mm3 (4.0-10.0) L 11/06/19 08:05 RBC 4.13 M/mm3 (4.00-5.60) 11/06/19 08:05 Hgb 11.9 GM/dL (11.7-16.9) 11/06/19 08:05 Hct 37.0 % (35.4-49) 11/06/19 08:05 MCV 89.7 fl (80-96) 11/06/19 08:05 MCH 28.8 pg (25.7-33.7) 11/06/19 08:05 MCHC 32.1 g/dl (32.0-35.9) 11/06/19 08:05 RDW 14.8 % (11.9-15.9) D 11/06/19 08:05 Plt Count 346 K/MM3 (134-434) 11/06/19 08:05 MPV 8.0 fl (7.5-11.1) 11/06/19 08:05 Sodium 142 mmol/L (136-145) 11/06/19 08:05 Potassium 4.5 mmol/L (3.5-5.1) 11/06/19 08:05 Chloride 108 mmol/L (98-107) H 11/06/19 08:05 Carbon Dioxide 27 mmol/L (21-32) 11/06/19 08:05 Anion Gap 7 MMOL/L (8-16) L 11/06/19 08:05 BUN 11.3 mg/dL (7-18) 11/06/19 08:05 Creatinine 1.0 mg/dL (0.55-1.3) 11/06/19 08:05 Est GFR (CKD-EPI)AfAm 96.40 11/06/19 08:05 Est GFR (CKD-EPI)NonAf 83.18 11/06/19 08:05 Random Glucose 95 mg/dL (74-106) 11/06/19 08:05 Calcium 9.0 mg/dL (8.5-10.1) 11/06/19 08:05 Total Bilirubin 0.4 mg/dL (0.2-1) 11/06/19 08:05 AST 15 U/L (15-37) 11/06/19 08:05 ALT 21 U/L (13-61) 11/06/19 08:05 Alkaline Phosphatase 44 U/L (45-117) L 11/06/19 08:05 Total Protein 6.7 g/dl (6.4-8.2) 11/06/19 08:05 Albumin 3.0 g/dl (3.4-5.0) L 11/06/19 08:05 Syphilis Serology Reactive (NONREACTIVE) A* 11/06/19 08:05 RPR Titer Reactive 1:1 (NONREACTIVE) H 11/06/19 08:05 COVID-19 (KERRY) Not detected (Not Detected) 11/05/19 14:30 HIV Ag/Ab Combo Qual Negative (NEGATIVE) 11/06/19 08:05 history of syphilis adequately treated before Assessment: 11/08/19 12:25 detox completed,no withdrawal symptom Plan: stable for discharge today,follow up with [facility]
--- NOTE | 2019-11-08 12:31 | DS ---
[facility] Detox Discharge Summary Admission Date: 11/05/19 Discharge Date: 11/08/19 - History Present History: Alcohol Dependence Additional Comments: alert,oriented x 3 ambulation on the unit lung clear on auscultation bilaterally no swelling of legs detox completed,no withdrawal symptom stable for discharge today follow up with after care [facility] arrangement total time of discharge 35 minutes patient left the unit in stable condition Pertinent Past History: syncope frequent fall schizophrenia - Physical Exam Results Vital Signs: Vital Signs Temperature 97.1 F L 11/08/19 05:31 Pulse Rate 86 11/08/19 05:31 Respiratory Rate 20 11/08/19 05:31 Blood Pressure 120/70 11/08/19 05:31 O2 Sat by Pulse Oximetry (%) 99 11/08/19 05:31 Pertinent Admission Physical Exam Findings: withdrawal signs and symptom Vital Signs Temperature 97.1 F L 11/08/19 05:31 Pulse Rate 86 11/08/19 05:31 Respiratory Rate 20 11/08/19 05:31 Blood Pressure 120/70 11/08/19 05:31 O2 Sat by Pulse Oximetry (%) 99 11/08/19 05:31 Laboratory Last Values WBC 3.8 K/mm3 (4.0-10.0) L 11/06/19 08:05 RBC 4.13 M/mm3 (4.00-5.60) 11/06/19 08:05 Hgb 11.9 GM/dL (11.7-16.9) 11/06/19 08:05 Hct 37.0 % (35.4-49) 11/06/19 08:05 MCV 89.7 fl (80-96) 11/06/19 08:05 MCH 28.8 pg (25.7-33.7) 11/06/19 08:05 MCHC 32.1 g/dl (32.0-35.9) 11/06/19 08:05 RDW 14.8 % (11.9-15.9) D 11/06/19 08:05 Plt Count 346 K/MM3 (134-434) 11/06/19 08:05 MPV 8.0 fl (7.5-11.1) 11/06/19 08:05 Sodium 142 mmol/L (136-145) 11/06/19 08:05 Potassium 4.5 mmol/L (3.5-5.1) 11/06/19 08:05 Chloride 108 mmol/L (98-107) H 11/06/19 08:05 Carbon Dioxide 27 mmol/L (21-32) 11/06/19 08:05 Anion Gap 7 MMOL/L (8-16) L 11/06/19 08:05 BUN 11.3 mg/dL (7-18) 11/06/19 08:05 Creatinine 1.0 mg/dL (0.55-1.3) 11/06/19 08:05 Est GFR (CKD-EPI)AfAm 96.40 11/06/19 08:05 Est GFR (CKD-EPI)NonAf 83.18 11/06/19 08:05 Random Glucose 95 mg/dL (74-106) 11/06/19 08:05 Calcium 9.0 mg/dL (8.5-10.1) 11/06/19 08:05 Total Bilirubin 0.4 mg/dL (0.2-1) 11/06/19 08:05 AST 15 U/L (15-37) 11/06/19 08:05 ALT 21 U/L (13-61) 11/06/19 08:05 Alkaline Phosphatase 44 U/L (45-117) L 11/06/19 08:05 Total Protein 6.7 g/dl (6.4-8.2) 11/06/19 08:05 Albumin 3.0 g/dl (3.4-5.0) L 11/06/19 08:05 Syphilis Serology Reactive (NONREACTIVE) A* 11/06/19 08:05 RPR Titer Reactive 1:1 (NONREACTIVE) H 11/06/19 08:05 COVID-19 (KERRY) Not detected (Not Detected) 11/05/19 14:30 HIV Ag/Ab Combo Qual Negative (NEGATIVE) 11/06/19 08:05 adequately treated for syphilis - Treatment Hospital Course: Detox Protocol Followed, Detoxed Safely, Responded well, Discharged Condition Good, Rehab Referral Accepted Patient has Accepted a Rehab Referral to: [facility] - Medication Discharge Medications: Ambulatory Orders Buspirone HCl [Buspar -] 30 mg PO HS 09/03/18 Risperidone [Risperdal -] 2 mg PO BID 09/03/18 - Diagnosis (1) Alcohol dependence with withdrawal Current Visit: No Status: Acute Qualifiers: Complication of substance-induced condition: uncomplicated Qualified Code(s): F10.230 - Alcohol dependence with withdrawal, uncomplicated (2) Cocaine dependence Current Visit: No Status: Chronic Qualifiers: Substance use status: uncomplicated Qualified Code(s): F14.20 - Cocaine dependence, uncomplicated (3) Nicotine use disorder Current Visit: No Status: Chronic (4) Schizophrenia Current Visit: No Status: Chronic Qualifiers: (5) Weight loss Current Visit: No Status: Chronic (6) Syncope Current Visit: Yes Status: Acute (7) Frequent falls Current Visit: Yes Status: Acute (8) Contusion Current Visit: Yes Status: Acute - AMA Did Patient Leave Against Medical Advice: No
== END 2019-11-08 12:40 | disposition other institution (70) | DRG 774 ==
LOC: YASAS 10:22 → Y6N 14:14
PROVIDERS: ADMIT Allergy & Immunology; ATTEND Allergy & Immunology
PROC: HZ2ZZZZ Detoxification Services for Substance Abuse Treatment (ICD-10-PCS; principal; 2019-11-05)
DX: F10.230 Alcohol dependence with withdrawal, uncomplicated (principal); F14.20 Cocaine dependence, uncomplicated; F17.210 Nicotine dependence, cigarettes, uncomplicated; F20.9 Schizophrenia, unspecified; R63.4 Abnormal weight loss; R29.6 Repeated falls; Z88.0 Allergy status to penicillin; Z91.011 Allergy to milk products; Z56.0 Unemployment, unspecified; Z91.5 Personal history of self-harm; Z87.438 Personal history of other diseases of male genital organs; Z59.0 Homelessness
CPT/HCPCS: 36415; 80053; 85027; 86593; 86780; 87389; U0003

== ENCOUNTER 2019-11-08 12:34 | Inpatient (IN) | payer OTHER ==
--- NOTE | 2019-11-08 13:04 | HP ---
[facility] Rehab Assess/Revision - Admission History Admitted to Rehab from: [facility] Date of Admission to Rehab: 11/08/19 - Vital signs Vital Signs: Vital Signs Period Temp Pulse Resp BP Sys/Gallagher Pulse Ox Last 24 Hr 98.6 F 95 16 105/72 - Findings Detox History & Physical reviewed: Yes Concur with findings: Yes Comments/Additional Findings: for rehab as protocol Inpatient Rehab Admission - Rehab Decision to Admit Inpatient rehab admission?: Yes - Initial Determination Are CD services needed?: Yes Free of communicable disease: Yes Not in need of hospitalization: Yes - Rehab Admission Criteria Previous failed treatment: Yes Poor recovery environment: Yes Comorbidities: Yes Lacks judgement: No Patient is meeting Inpatient Rehab admission criteria:: Yes
[2019-11-08] MEDS ORDERED: LOPERAMIDE HCL 2 MG CAPSULE PO PRN (13:29)
[2019-11-08] MEDS ORDERED: MAG HYDROX/AL HYDROX/SIMETH 30 ML UNIT-DOSE CUP PO PRN (13:29)
[2019-11-08] MEDS ORDERED: MAGNESIUM CITRATE 300 ML BOTTLE PO PRN (13:29)
[2019-11-08] MEDS ORDERED: P-EPHED 60MG/TRIPROLIDI 2.5MG TABLET PO PRN (13:29)
[2019-11-08] MEDS ORDERED: MAGNESIUM HYDROX 2400MG/30ML ORAL SUSPENSION 30 ML CUP PO PRN (13:29)
[2019-11-08] MEDS ORDERED: ACETAMINOPHEN 325 MG TABLET (FP) PO PRN (13:29)
[2019-11-08] MEDS ORDERED: guaiFENesin 200 MG/10 ML 10 ML UNIT-DOSE CUPS PO PRN (13:29)
[2019-11-08] MEDS ORDERED: IBUPROFEN 400 MG TABLET (FP) PO PRN (13:29)
[2019-11-08] MEDS ORDERED: MENTHOL/PHENOL 1 EACH UD MM PRN (13:29)
[2019-11-08] MEDS: MELATONIN 5 MG TABLETS PO SCH (21:37)
[2019-11-08] MEDS: THIAMINE HCL 100 MG TABLET (FP) PO SCH (21:37)
[2019-11-09] MEDS: PRENATAL VITAMINS W/ FOLIC ACID TABLET (FP) PO SCH (09:31)
[2019-11-09] MEDS: THIAMINE HCL 100 MG TABLET (FP) PO SCH (21:28)
[2019-11-09] MEDS: hydrOXYzine PAMOATE 25 MG CAPSULE (FP) PO PRN (21:28)
[2019-11-09] MEDS: MELATONIN 5 MG TABLETS PO SCH (21:28)
[2019-11-10] MEDS: PRENATAL VITAMINS W/ FOLIC ACID TABLET (FP) PO SCH (09:49)
[2019-11-10] MEDS: MELATONIN 5 MG TABLETS PO SCH (22:00)
[2019-11-10] MEDS: THIAMINE HCL 100 MG TABLET (FP) PO SCH (22:01)
[2019-11-11] MEDS: PRENATAL VITAMINS W/ FOLIC ACID TABLET (FP) PO SCH (09:34)
--- NOTE | 2019-11-11 13:23 | CONSULT ---
[facility] Psychiatric Consult - Data Date of interview: 11/11/19 Admission source: Transfer from [address] [place] [address]. Identifying data: Readmission to [facility] (this time, at [facility]) for this 59 y/o AA male who sought rehabilitation treatment (NIKOLAI issues : alcohol, heroin, cocaine). Completed detoxification at [address] [place] [address]. Patient is , father of one, homeless (resides in senior living), unemployed and supported on SSI benefits. Substance Abuse History: Discussed with the patient. NIKOLAI profile as follows : Smoking history: Former smoker. Have you smoked in the past 12 months: Yes. Aproximately how many cigarettes per day: 2. If you are a former smoker, when did you quit?: 4months ago. Cigars Per Day: 0. Hx Chewing Tobacco Use: No. Initiated information on smoking cessation: No. - Substance & Tx. History. Hx Alcohol Use: Yes. Hx Substance Use: Yes. Substance Use Type: Alcohol, Cocaine. Hx Substance Use Treatment: Yes ([facility] 08/09/19 not completed). - Substances abused. Alcohol. Substance route: Oral. Frequency: Daily. Amount used: 1 pint of bacardi/6 packs of 16 ozs of beer. Age of first use: 18. Date of last use: 11/04/19. Crack. Substance route: Smoking. Frequency: 3-6 times per week. Amount used: 100$. Age of first use: 24. Date of last use: 11/04/19 Medical History: Medical profile is remarkable for benign prostatic hypertrophy, chronic shoulder pain (left) and antecedent of inguinal herniorraphy (1979). Psychiatric History: Patient remains a questionable historian. He admits to a history of one psychiatric hospitalization (2010). Endorses the diagnosis of S chizophrenia. Mr Canela states that he is prescribed risperdal 2 mg/hs + buspar 30 mg/hs by the [facility]esta psychiatrist at the [facility] in [place]. Admits to sporadic adherence to his medications (last taken 5-7 days ago as per self-report). Patient denies history of suicide attempts. Physical/Sexual Abuse/Trauma History: Patient denies. Additional Comment: Urine drug screen results: RAMIRO-Cocaine. Noted. Mental Status Exam - Mental Status Exam Alert and Oriented to: Time, Place, Person Cognitive Function: Good Patient Appearance: Unkempt, Disheveled Mood: Withdrawn Affect: Blunted Patient Behavior: Fatigued, Appropriate, Cooperative Speech Pattern: Clear, Appropriate Voice Loudness: Normal Thought Process: Goal Oriented Thought Disorder: Not Present Hallucinations: Denies Suicidal Ideation: Denies Homicidal Ideation: Denies Insight/Judgement: Poor Sleep: Fair Appetite: Good Gait/Station: Normal Psychiatric Findings - Problem List ([place] 1, 2,3) (1) Alcohol use disorder Current Visit: Yes Status: Chronic (2) Cocaine dependence Current Visit: Yes Status: Chronic Qualifiers: Substance use status: uncomplicated Qualified Code(s): F14.20 - Cocaine dependence, uncomplicated (3) Nicotine dependence Current Visit: Yes Status: Chronic Qualifiers: Nicotine product type: cigarettes Substance use status: uncomplicated Qualified Code(s): F17.210 - Nicotine dependence, cigarettes, uncomplicated (4) Schizophrenia Current Visit: Yes Status: Chronic Qualifiers: - Initial Treatment Plan Initial Treatment Plan: Psychoeducation. Sleep hygiene. Support. Rehabilitation : counseling, encouragement, AA meetings, information about benefits of MAT interventions, cognitive therapy). Medications resumed at patient's request : risperdal 1 mg po bid + buspar 5 mg po bid. Side effects/benefits discussed with the patient. Made aware, in particular, of the risk of neuroleptic malignant syndrome, dyskinesias, dystonias, galactorrhea, gynecomastia, sexual dysfunction and cardiovascular adverse events (from the use of risperidone). Mr canela gave his informed consent (verbal) to MD. Willis.
[2019-11-11] MEDS ORDERED: busPIRone HCL 5 MG TABLET PO SCH (22:00)
[2019-11-11] MEDS: risperiDONE 1 MG TABLET PO SCH (22:24)
[2019-11-11] MEDS: hydrOXYzine PAMOATE 25 MG CAPSULE (FP) PO PRN (22:24)
[2019-11-11] MEDS: THIAMINE HCL 100 MG TABLET (FP) PO SCH (22:24)
[2019-11-11] MEDS: MELATONIN 5 MG TABLETS PO SCH (22:25)
[2019-11-11] MEDS: busPIRone HCL 5 MG TABLET PO SCH (22:42)
[2019-11-12] MEDS: risperiDONE 1 MG TABLET PO SCH ×2 (09:24→22:06)
[2019-11-12] MEDS: busPIRone HCL 5 MG TABLET PO SCH ×2 (09:24→22:06)
[2019-11-12] MEDS: PRENATAL VITAMINS W/ FOLIC ACID TABLET (FP) PO SCH (09:24)
[2019-11-12] MEDS ORDERED: PT OWN MED DRAWER 7, Y5N ONE (19:57)
[2019-11-12] MEDS: THIAMINE HCL 100 MG TABLET (FP) PO SCH (22:06)
[2019-11-12] MEDS: MELATONIN 5 MG TABLETS PO SCH (22:06)
[2019-11-13 06:32] VITALS: TEMP 97.8
[2019-11-13] MEDS: busPIRone HCL 5 MG TABLET PO SCH ×2 (09:18→21:49)
[2019-11-13] MEDS: PRENATAL VITAMINS W/ FOLIC ACID TABLET (FP) PO SCH (09:18)
[2019-11-13] MEDS: risperiDONE 1 MG TABLET PO SCH ×2 (09:18→21:49)
[2019-11-13] MEDS ORDERED: PT OWN MED DRAWER 7, Y5N ONE (19:30)
[2019-11-13] MEDS: MELATONIN 5 MG TABLETS PO SCH (21:49)
[2019-11-13] MEDS: THIAMINE HCL 100 MG TABLET (FP) PO SCH (21:49)
[2019-11-14 08:34] VITALS: BP 100/62; PULSE 80
--- NOTE | 2019-11-14 09:16 | DS ---
[facility] Rehab Discharge Summary - [facility] Rehab Discharge Summary Admission Date: 11/08/19 Discharge Date: 11/14/19 - History Present History: Alcohol dependence, Cocaine dependence Additional Comments: As per note by counselor, Carmina Case: "Patient informed his counselor he wanted to leave because he got his apartment. Patients counselor encouraged him to stay reminding him that his CM encouraged him to complete his treatment. Patients counselor attempted to make call to his CM , but had to leave a message. Nursing staff informed race and sports book writer that patient left the unit following another patient who was being d/c'd and escorted by staff. N ursing staff informed race and sports book writer that patient stated he was not waiting and wanted to leave now. Patient walked off the unit AMA without his D/C plan. Textile Slitting Machine Operator and counselor notified both his Cm's (Kirill and Jaxson) from [facility] and [facility]". Pt was seen by the nursing station waiting to be processed for his requests for possible discharge. A few minutes elapsed when pt suddenly exited with another scheduled patient.all efforts to bring him back failed as patient vehemently refused to come back to the unit per nursing staff and counselor, Carmina. Pertinent Past History: Hx BPH(no med) Hx Inguinal Hernia repairs, brenda. Hx Fx Left elbow Hx Fx right HandHx Schizophrenia Mood Disorder - Discharge Physical Exam Vital Signs: Vital Signs Temperature 97.8 F 11/14/19 06:00 Pulse Rate 80 11/14/19 06:00 Respiratory Rate 18 11/14/19 06:00 Blood Pressure 100/62 11/14/19 06:00 O2 Sat by Pulse Oximetry (%) 100 11/14/19 06:00 Alert o x 3, no s/h/i expressed. nad oob ambulating with steady gait. Pt walked out of the unit before he could be spoken to for follow up and management. Pertinent Admission Physical Exam Findings: Admit from Detox [address] [place] [address] Status stable - Treatment Discharge Condition: Discharge condition good Hospital Course: Pt completed detox and was referred to rehab on 11/08/19. - Medication Discharge Medications: Ambulatory Orders Buspirone HCl [Buspar -] 30 mg PO HS 09/03/18 Risperidone [Risperdal -] 2 mg PO DAILY 09/03/18 - Medication-Assisted Treatment (MAT) Medication-Assisted Treatment (MAT): No - Discharge Instructions Diet, activity, other medical instructions: Diet:Regular Activity: oob ad tiffany Other medical instructions: - Diagnosis (1) Cocaine dependence Current Visit: Yes Status: Chronic Qualifiers: Substance use status: uncomplicated Qualified Code(s): F14.20 - Cocaine dependence, uncomplicated (2) BPH (benign prostatic hyperplasia) Current Visit: Yes Status: Chronic Qualifiers: Lower urinary tract symptom presence: symptoms absent Qualified Code(s): N40.0 - Benign prostatic hyperplasia without lower urinary tract symptoms (3) Nicotine dependence Current Visit: Yes Status: Chronic Qualifiers: Nicotine product type: cigarettes Substance use status: uncomplicated Qualified Code(s): F17.210 - Nicotine dependence, cigarettes, uncomplicated (4) Alcohol use disorder Current Visit: Yes Status: Chronic - Follow-up Referral Minutes to complete discharge: 10 - AMA Did Patient Leave Against Medical Advice: Yes
== END 2019-11-14 08:25 | disposition left against medical advice (07) | DRG 770 ==
LOC: YASAS 12:34 → Y3E 12:36
PROVIDERS: ADMIT Allergy & Immunology; ATTEND Allergy & Immunology
PROC: HZ42ZZZ Group Counseling for Substance Abuse Treatment, Cognitive-Behavioral (ICD-10-PCS; principal; 2019-11-08)
DX: F10.20 Alcohol dependence, uncomplicated (principal); F14.20 Cocaine dependence, uncomplicated; F17.210 Nicotine dependence, cigarettes, uncomplicated; F20.9 Schizophrenia, unspecified; N40.0 Benign prostatic hyperplasia without lower urinary tract symptoms; Z59.0 Homelessness
CPT/HCPCS: J2794

== ENCOUNTER 2020-04-30 12:08 | Inpatient (IN) | payer OTHER ==
[2020-04-30] MEDS ORDERED: METHADONE HCL 10 MG TABLET (FOR DETOX USE ONLY) PO ONE (15:38)
[2020-04-30] MEDS ORDERED: cloNIDine HCL 0.1 MG TABLET PO PRN (15:38)
[2020-04-30] MEDS ORDERED: NICOTINE POLACRILEX 2 MG GUM BUC PRN (15:38)
[2020-04-30] MEDS ORDERED: ACETAMINOPHEN 325 MG TABLET (FP) PO PRN ×2 (15:38)
[2020-04-30] MEDS ORDERED: MAGNESIUM CITRATE 300 ML BOTTLE PO PRN (15:38)
[2020-04-30] MEDS ORDERED: MENTHOL/PHENOL 1 EACH UD MM PRN (15:38)
[2020-04-30] MEDS ORDERED: BISMUTH SUBSALICYLATE 262 MG/15 ML BTL PO PRN (15:38)
[2020-04-30] MEDS ORDERED: ONDANSETRON *ODT* 4 MG TABLET SL PRN (15:38)
[2020-04-30] MEDS ORDERED: MAG HYDROX/AL HYDROX/SIMETH 30 ML UNIT-DOSE CUP PO PRN (15:38)
[2020-04-30] MEDS ORDERED: MAGNESIUM HYDROX 2400MG/30ML ORAL SUSPENSION 30 ML CUP PO PRN (15:38)
[2020-04-30 15:49] VITALS: BMI 19.3
[2020-04-30] MEDS: NICOTINE 7 MG/24 HOURS TOPICAL PATCH TD SCH (18:20)
[2020-04-30] MEDS: hydrOXYzine PAMOATE 25 MG CAPSULE (FP) PO SCH ×2 (18:20→22:16)
[2020-04-30] MEDS: IBUPROFEN 400 MG TABLET (FP) PO PRN (18:23)
[2020-04-30] MEDS ORDERED: MELATONIN 5 MG TABLETS PO SCH (22:00)
[2020-04-30] MEDS: CLOTRIMAZOLE 1% CREAM 15 GM TUBE TP SCH (22:15)
[2020-04-30] MEDS: THIAMINE HCL 100 MG TABLET (FP) PO SCH (22:16)
[2020-05-01] MEDS: hydrOXYzine PAMOATE 25 MG CAPSULE (FP) PO SCH ×5 (05:50→21:41)
[2020-05-01] MEDS ORDERED: METHADONE HCL 5 MG TABLET (FOR DETOX USE ONLY) ONE (08:35)
[2020-05-01] MEDS ORDERED: METHADONE HCL 10 MG TABLET (FOR DETOX USE ONLY) ONE (08:36)
[2020-05-01] MEDS ORDERED: risperiDONE 2 MG TABLET PO SCH (10:00)
[2020-05-01] MEDS ORDERED: METHADONE (DETOX) 20 MG, METHADONE (DETOX) 5 MG PO ONE (10:00)
[2020-05-01] MEDS ORDERED: MELATONIN 5 MG TABLETS PO PRN (10:11)
[2020-05-01] MEDS: CLOTRIMAZOLE 1% CREAM 15 GM TUBE TP SCH ×2 (10:19→21:45)
[2020-05-01] MEDS: NICOTINE 7 MG/24 HOURS TOPICAL PATCH TD SCH (10:21)
[2020-05-01] MEDS: PRENATAL VITAMINS W/ FOLIC ACID TABLET (FP) PO SCH (10:21)
[2020-05-01 12:03] LABS: HEMATOCRIT 33.1 % (35.4-49); HEMOGLOBIN 10.9 GM/dL (11.7-16.9); MCH 30.2 pg (25.7-33.7); MCHC 32.8 g/dl (32.0-35.9); MEAN CELL VOLUME 92.3 fl (80-96); MEAN PLT VOLUME 7.6 fl (7.5-11.1); PLATELET COUNT 281 K/MM3 (134-434); RBC 3.59 M/mm3 (4.00-5.60); RDW 15.1 % (11.9-15.9); WHITE BLOOD COUNT 3.6 K/mm3 (4.0-10.0)
[2020-05-01 12:07] LABS: POTASSIUM 3.7 mmol/L (3.5-5.1)
[2020-05-01 12:18] LABS: ALBUMIN 3.1 g/dl (3.4-5.0); BLOOD UREA NITROGEN 9.2 mg/dL (7-18); CALCIUM 8.2 mg/dL (8.5-10.1)
[2020-05-01 12:23] LABS: BILIRUBIN,TOTAL 0.5 mg/dL (0.2-1)
[2020-05-01] MEDS: FERROUS SO4 325 MG TABLET (FP) PO SCH (16:00)
[2020-05-01] MEDS: risperiDONE 2 MG TABLET PO SCH (21:41)
[2020-05-01] MEDS: THIAMINE HCL 100 MG TABLET (FP) PO SCH (21:41)
[2020-05-02] MEDS: hydrOXYzine PAMOATE 25 MG CAPSULE (FP) PO SCH ×5 (05:22→22:56)
[2020-05-02] MEDS: FERROUS SO4 325 MG TABLET (FP) PO SCH (07:13)
[2020-05-02] MEDS ORDERED: METHADONE HCL 10 MG TABLET (FOR DETOX USE ONLY) PO ONE (10:00)
[2020-05-02] MEDS: CLOTRIMAZOLE 1% CREAM 15 GM TUBE TP SCH ×2 (10:11→22:56)
[2020-05-02] MEDS: PRENATAL VITAMINS W/ FOLIC ACID TABLET (FP) PO SCH (10:12)
[2020-05-02] MEDS: NICOTINE 7 MG/24 HOURS TOPICAL PATCH TD SCH (10:12)
[2020-05-02] MEDS: DOXYCYCLINE HYCLATE 100 MG TABLET PO SCH (17:36)
[2020-05-02] MEDS: THIAMINE HCL 100 MG TABLET (FP) PO SCH (22:54)
[2020-05-02] MEDS: risperiDONE 2 MG TABLET PO SCH (22:54)
[2020-05-03] MEDS: hydrOXYzine PAMOATE 25 MG CAPSULE (FP) PO SCH ×5 (06:23→22:30)
[2020-05-03] MEDS ORDERED: MASKS NR ONE (07:09)
[2020-05-03] MEDS ORDERED: METHADONE HCL 5 MG TABLET (FOR DETOX USE ONLY) ONE (08:51)
[2020-05-03] MEDS ORDERED: METHADONE HCL 10 MG TABLET (FOR DETOX USE ONLY) ONE (08:51)
[2020-05-03] MEDS: FERROUS SO4 325 MG TABLET (FP) PO SCH (08:58)
[2020-05-03] MEDS ORDERED: METHADONE (DETOX) 10 MG, METHADONE (DETOX) 5 MG PO ONE (10:00)
[2020-05-03] MEDS: DOXYCYCLINE HYCLATE 100 MG TABLET PO SCH ×2 (10:09→17:32)
[2020-05-03] MEDS: PRENATAL VITAMINS W/ FOLIC ACID TABLET (FP) PO SCH (10:09)
[2020-05-03] MEDS: NICOTINE 7 MG/24 HOURS TOPICAL PATCH TD SCH (10:10)
[2020-05-03] MEDS: CLOTRIMAZOLE 1% CREAM 15 GM TUBE TP SCH ×2 (10:11→22:30)
[2020-05-03] MEDS: THIAMINE HCL 100 MG TABLET (FP) PO SCH (22:30)
[2020-05-03] MEDS: risperiDONE 2 MG TABLET PO SCH (22:30)
[2020-05-04] MEDS: hydrOXYzine PAMOATE 25 MG CAPSULE (FP) PO SCH ×5 (05:36→22:42)
[2020-05-04] MEDS: FERROUS SO4 325 MG TABLET (FP) PO SCH (07:47)
[2020-05-04] MEDS ORDERED: METHADONE HCL 10 MG TABLET (FOR DETOX USE ONLY) PO ONE (10:00)
[2020-05-04] MEDS: DOXYCYCLINE HYCLATE 100 MG TABLET PO SCH ×2 (10:10→18:03)
[2020-05-04] MEDS: NICOTINE 7 MG/24 HOURS TOPICAL PATCH TD SCH (10:10)
[2020-05-04] MEDS: PRENATAL VITAMINS W/ FOLIC ACID TABLET (FP) PO SCH (10:10)
[2020-05-04] MEDS: CLOTRIMAZOLE 1% CREAM 15 GM TUBE TP SCH ×2 (10:12→22:39)
[2020-05-04] MEDS: IBUPROFEN 400 MG TABLET (FP) PO PRN (11:50)
[2020-05-04] MEDS: METHOCARBAMOL 500 MG TABLET PO PRN (11:50)
[2020-05-04] MEDS: THIAMINE HCL 100 MG TABLET (FP) PO SCH (22:39)
[2020-05-04] MEDS: risperiDONE 2 MG TABLET PO SCH (22:39)
[2020-05-04] MEDS: MINERAL OIL/PETROLAT/WATER TOPICAL CREAM 454 GM JAR TP SCH (22:40)
[2020-05-05] MEDS ORDERED: METHADONE HCL 5 MG TABLET (FOR DETOX USE ONLY) PO ONE (06:00)
[2020-05-05] MEDS: hydrOXYzine PAMOATE 25 MG CAPSULE (FP) PO SCH ×5 (06:12→22:36)
[2020-05-05] MEDS: FERROUS SO4 325 MG TABLET (FP) PO SCH (08:09)
[2020-05-05] MEDS: DOXYCYCLINE HYCLATE 100 MG TABLET PO SCH ×2 (10:10→17:59)
[2020-05-05] MEDS: PRENATAL VITAMINS W/ FOLIC ACID TABLET (FP) PO SCH (10:10)
[2020-05-05] MEDS: NICOTINE 7 MG/24 HOURS TOPICAL PATCH TD SCH (10:12)
[2020-05-05] MEDS: IBUPROFEN 400 MG TABLET (FP) PO PRN (11:19)
[2020-05-05] MEDS: METHOCARBAMOL 500 MG TABLET PO PRN (11:19)
[2020-05-05] MEDS: MINERAL OIL/PETROLAT/WATER TOPICAL CREAM 454 GM JAR TP SCH ×2 (16:22→22:38)
[2020-05-05] MEDS: CLOTRIMAZOLE 1% CREAM 15 GM TUBE TP SCH ×2 (16:22→22:38)
[2020-05-05 16:52] LABS: URINE APPEARANCE CLEAR; URINE BILIRUBIN NEGATIVE (NEGATIVE); URINE COLOR YELLOW; URINE GLUCOSE (UA) NEGATIVE (NEGATIVE); URINE KETONE NEGATIVE (NEGATIVE); URINE LEUK ESTERASE NEGATIVE (NEGATIVE); URINE NITRITE NEGATIVE (NEGATIVE); URINE PROTEIN NEGATIVE (NEGATIVE); URINE UROBILINOGEN 0.2 mg/dL (0.2-1.0)
[2020-05-05] MEDS: risperiDONE 2 MG TABLET PO SCH (22:36)
[2020-05-05] MEDS: THIAMINE HCL 100 MG TABLET (FP) PO SCH (22:36)
[2020-05-06] MEDS: hydrOXYzine PAMOATE 25 MG CAPSULE (FP) PO SCH ×2 (06:12→10:43)
[2020-05-06] MEDS: FERROUS SO4 325 MG TABLET (FP) PO SCH (07:04)
[2020-05-06] MEDS: MINERAL OIL/PETROLAT/WATER TOPICAL CREAM 454 GM JAR TP SCH (10:40)
[2020-05-06] MEDS: CLOTRIMAZOLE 1% CREAM 15 GM TUBE TP SCH (10:40)
[2020-05-06] MEDS: PRENATAL VITAMINS W/ FOLIC ACID TABLET (FP) PO SCH (10:41)
[2020-05-06] MEDS: NICOTINE 7 MG/24 HOURS TOPICAL PATCH TD SCH (10:41)
[2020-05-06] MEDS: IBUPROFEN 400 MG TABLET (FP) PO PRN (10:42)
[2020-05-06] MEDS: METHOCARBAMOL 500 MG TABLET PO PRN (10:42)
[2020-05-06] MEDS: DOXYCYCLINE HYCLATE 100 MG TABLET PO SCH (10:42)
[2020-05-06 13:21] VITALS: BP 98/62; PULSE 111; TEMP 97.1
== END 2020-05-06 13:50 | disposition other institution (70) | DRG 773 ==
LOC: YASAS 12:08 → Y6N 15:25
PROVIDERS: ADMIT Allergy & Immunology; ATTEND Allergy & Immunology
PROC: HZ2ZZZZ Detoxification Services for Substance Abuse Treatment (ICD-10-PCS; principal; 2020-04-30)
DX: F11.23 Opioid dependence with withdrawal (principal); F10.20 Alcohol dependence, uncomplicated; F14.20 Cocaine dependence, uncomplicated; F12.20 Cannabis dependence, uncomplicated; F17.210 Nicotine dependence, cigarettes, uncomplicated; F19.282 Other psychoactive substance dependence with psychoactive substance-induced sleep disorder; F20.9 Schizophrenia, unspecified; F32.9 Major depressive disorder, single episode, unspecified; A53.0 Latent syphilis, unspecified as early or late; B35.3 Tinea pedis; D64.9 Anemia, unspecified; D72.819 Decreased white blood cell count, unspecified; K59.00 Constipation, unspecified; M19.011 Primary osteoarthritis, right shoulder; M19.012 Primary osteoarthritis, left shoulder; R05 Cough; R36.9 Urethral discharge, unspecified; R63.4 Abnormal weight loss; Z68.1 Body mass index [BMI] 19.9 or less, adult; Z86.19 Personal history of other infectious and parasitic diseases; Z91.011 Allergy to milk products; Z88.0 Allergy status to penicillin; Z59.0 Homelessness; Z91.5 Personal history of self-harm
CPT/HCPCS: 36415; 80053; 81003; 85027; 86593; 86780; 87389; 87491; 87591; C9803; U0003

== ENCOUNTER 2020-05-06 13:49 | Inpatient (IN) | payer OTHER ==
[2020-05-06] MEDS ORDERED: hydrOXYzine PAMOATE 25 MG CAPSULE (FP) PO PRN (16:00)
[2020-05-06] MEDS ORDERED: P-EPHED 60MG/TRIPROLIDI 2.5MG TABLET PO PRN (16:00)
[2020-05-06] MEDS ORDERED: MAGNESIUM HYDROX 2400MG/30ML ORAL SUSPENSION 30 ML CUP PO PRN (16:00)
[2020-05-06] MEDS ORDERED: LOPERAMIDE HCL 2 MG CAPSULE PO PRN (16:00)
[2020-05-06] MEDS ORDERED: NICOTINE POLACRILEX 2 MG GUM BUC PRN (16:00)
[2020-05-06] MEDS ORDERED: IBUPROFEN 400 MG TABLET (FP) PO PRN (16:00)
[2020-05-06] MEDS ORDERED: guaiFENesin 200 MG/10 ML 10 ML UNIT-DOSE CUPS PO PRN (16:00)
[2020-05-06] MEDS ORDERED: MAGNESIUM CITRATE 300 ML BOTTLE PO PRN (16:00)
[2020-05-06] MEDS ORDERED: MAG HYDROX/AL HYDROX/SIMETH 30 ML UNIT-DOSE CUP PO PRN (16:00)
[2020-05-06] MEDS ORDERED: MENTHOL/PHENOL 1 EACH UD MM PRN (16:00)
[2020-05-06] MEDS ORDERED: ACETAMINOPHEN 325 MG TABLET (FP) PO PRN (16:00)
[2020-05-06] MEDS ORDERED: risperiDONE 1 MG TABLET PO SCH (22:00)
[2020-05-06] MEDS: THIAMINE HCL 100 MG TABLET (FP) PO SCH (22:38)
[2020-05-06] MEDS: MELATONIN 5 MG TABLETS PO SCH (22:38)
[2020-05-07] MEDS: NICOTINE 7 MG/24 HOURS TOPICAL PATCH TD SCH (10:27)
[2020-05-07] MEDS: PRENATAL VITAMINS W/ FOLIC ACID TABLET (FP) PO SCH (10:27)
[2020-05-07] MEDS: MELATONIN 5 MG TABLETS PO SCH (21:50)
[2020-05-07] MEDS: THIAMINE HCL 100 MG TABLET (FP) PO SCH (21:50)
[2020-05-07] MEDS ORDERED: busPIRone HCL 10 MG TABLET (FP) PO SCH (22:00)
[2020-05-08 07:08] VITALS: BP 99/68; PULSE 105; TEMP 97.7
[2020-05-08] MEDS: PRENATAL VITAMINS W/ FOLIC ACID TABLET (FP) PO SCH (10:19)
[2020-05-08] MEDS: NICOTINE 7 MG/24 HOURS TOPICAL PATCH TD SCH (10:20)
== END 2020-05-08 17:41 | disposition left against medical advice (07) | DRG 770 ==
LOC: YASAS 13:49 → Y5N 13:50
PROVIDERS: ADMIT Allergy & Immunology; ATTEND Allergy & Immunology
DX: F11.20 Opioid dependence, uncomplicated (principal); F10.20 Alcohol dependence, uncomplicated; F14.20 Cocaine dependence, uncomplicated; F12.20 Cannabis dependence, uncomplicated; F17.210 Nicotine dependence, cigarettes, uncomplicated; F20.9 Schizophrenia, unspecified; A53.0 Latent syphilis, unspecified as early or late; B35.3 Tinea pedis; N40.0 Benign prostatic hyperplasia without lower urinary tract symptoms; Z88.0 Allergy status to penicillin; Z91.011 Allergy to milk products; Z87.81 Personal history of (healed) traumatic fracture; Z56.0 Unemployment, unspecified

== ENCOUNTER 2020-12-20 13:26 | Inpatient (IN) | payer OTHER ==
[2020-12-20 14:21] VITALS: BMI 18.8
[2020-12-20] MEDS ORDERED: NICOTINE POLACRILEX 4 MG GUM BUC PRN (15:48)
[2020-12-20] MEDS ORDERED: NICOTINE 10 MG CARTRIDGE (INHALER) IH PRN (15:48)
[2020-12-20] MEDS ORDERED: MAG HYDROX/AL HYDROX/SIMETH 30 ML UNIT-DOSE CUP PO PRN (15:48)
[2020-12-20] MEDS ORDERED: MENTHOL/PHENOL 1 EACH UD MM PRN (15:48)
[2020-12-20] MEDS ORDERED: BISMUTH SUBSALICYLATE 524 MG/30 ML PO PRN (15:48)
[2020-12-20] MEDS ORDERED: diazePAM 5 MG TABLET PO PRN (15:48)
[2020-12-20] MEDS ORDERED: MAGNESIUM HYDROX 2400MG/30ML ORAL SUSPENSION 30 ML CUP PO PRN (15:48)
[2020-12-20] MEDS ORDERED: IBUPROFEN 400 MG TABLET (FP) PO PRN (15:48)
[2020-12-20] MEDS ORDERED: ONDANSETRON *ODT* 4 MG TABLET SL PRN (15:48)
[2020-12-20] MEDS ORDERED: METHOCARBAMOL 500 MG TABLET PO PRN (15:48)
[2020-12-20] MEDS ORDERED: ACETAMINOPHEN 325 MG TABLET (FP) PO PRN ×2 (15:48)
[2020-12-20] MEDS ORDERED: MAGNESIUM CITRATE 300 ML BOTTLE PO PRN (15:48)
[2020-12-20] MEDS ORDERED: METHOCARBAMOL 500 MG TABLET ONE (16:47)
[2020-12-20] MEDS ORDERED: diazePAM 5 MG TABLET ONE ×2 (16:47→22:35)
[2020-12-20] MEDS ORDERED: ACETAMINOPHEN 325 MG TABLET (FP) ONE (16:47)
[2020-12-20] MEDS: diazePAM 5 MG TABLET PO SCH ×2 (16:53→22:37)
[2020-12-20 17:03] LABS: BASO % 0.6 % (0-2.0); EOS % 1.5 % (0-4.5); LYMPH % 25.6 % (8-40); MCH 29.8 pg (25.7-33.7); MCHC 33.5 g/dl (32.0-35.9); MEAN CELL VOLUME 89.2 fl (80-96); MEAN PLT VOLUME 6.4 fl (7.5-11.1); MONO % 7.4 % (3.8-10.2); NEUT % 64.9 % (42.8-82.8); PLATELET COUNT 397 10^3/uL (134-434); RDW 18.2 % (11.9-15.9); WHITE BLOOD COUNT 5.4 K/mm3 (4.0-10.0)
[2020-12-20 17:19] LABS: CALCIUM 8.4 mg/dL (8.5-10.1)
[2020-12-20 17:20] LABS: ALBUMIN 3.5 g/dl (3.4-5.0); BLOOD UREA NITROGEN 10.5 mg/dL (7-18)
[2020-12-20 17:24] LABS: BILIRUBIN,TOTAL 0.3 mg/dL (0.2-1)
[2020-12-20 17:25] LABS: TOT PROT 7.1 g/dl (6.4-8.2)
[2020-12-20] MEDS ORDERED: cefTRIAXone SODIUM 1 GM VIAL IM ONE (18:00)
[2020-12-20] MEDS: THIAMINE HCL 100 MG TABLET (FP) PO SCH (22:37)
[2020-12-20] MEDS: MELATONIN 5 MG TABLETS PO SCH (22:37)
[2020-12-21] MEDS: diazePAM 5 MG TABLET PO SCH ×4 (06:41→23:23)
[2020-12-21] MEDS ORDERED: diazePAM 5 MG TABLET ONE (11:13)
[2020-12-21] MEDS: PRENATAL VITAMINS W/ FOLIC ACID TABLET (FP) PO SCH (12:00)
[2020-12-21] MEDS: TENOFOVIR DISOPROXIL FUMARATE 300 MG TABLET PO SCH ×3 (12:05→13:55)
[2020-12-21] MEDS: RALTEGRAVIR POTASSIUM 400 MG TAB PO SCH ×4 (12:05→23:00)
[2020-12-21] MEDS: MELATONIN 5 MG TABLETS PO SCH (23:00)
[2020-12-21] MEDS: THIAMINE HCL 100 MG TABLET (FP) PO SCH (23:23)
[2020-12-21] MEDS: hydrOXYzine PAMOATE 25 MG CAPSULE (FP) PO PRN (23:23)
[2020-12-22] MEDS: diazePAM 5 MG TABLET PO SCH ×3 (07:20→22:43)
[2020-12-22] MEDS: PRENATAL VITAMINS W/ FOLIC ACID TABLET (FP) PO SCH (10:57)
[2020-12-22] MEDS: RALTEGRAVIR POTASSIUM 400 MG TAB PO SCH ×3 (10:57→23:30)
[2020-12-22] MEDS: TENOFOVIR DISOPROXIL FUMARATE 300 MG TABLET PO SCH (10:57)
[2020-12-22] MEDS: THIAMINE HCL 100 MG TABLET (FP) PO SCH ×2 (22:43→23:30)
[2020-12-22] MEDS: MELATONIN 5 MG TABLETS PO SCH ×2 (22:43→23:30)
[2020-12-22] MEDS: hydrOXYzine PAMOATE 25 MG CAPSULE (FP) PO PRN (23:30)
[2020-12-23] MEDS: diazePAM 5 MG TABLET PO SCH ×2 (06:18→18:30)
[2020-12-23] MEDS: RALTEGRAVIR POTASSIUM 400 MG TAB PO SCH ×2 (10:18→22:38)
[2020-12-23] MEDS: PRENATAL VITAMINS W/ FOLIC ACID TABLET (FP) PO SCH (10:19)
[2020-12-23] MEDS: TENOFOVIR DISOPROXIL FUMARATE 300 MG TABLET PO SCH (10:19)
[2020-12-23 11:30] LABS: HEMATOCRIT 33.1 % (35.4-49); HEMOGLOBIN 11.2 GM/dL (11.7-16.9); MCH 30.4 pg (25.7-33.7); MCHC 33.8 g/dl (32.0-35.9); MEAN CELL VOLUME 89.9 fl (80-96); MEAN PLT VOLUME 6.8 fl (7.5-11.1); PLATELET COUNT 386 10^3/uL (134-434); RBC 3.68 M/mm3 (4.00-5.60); RDW 17.6 % (11.9-15.9); WHITE BLOOD COUNT 4.8 K/mm3 (4.0-10.0)
[2020-12-23 13:57] LABS: HIV INTERPRETATION NEGATIVE (NEGATIVE)
[2020-12-23] MEDS: THIAMINE HCL 100 MG TABLET (FP) PO SCH (22:38)
[2020-12-23] MEDS: MELATONIN 5 MG TABLETS PO SCH (22:38)
[2020-12-24] MEDS ORDERED: diazePAM 5 MG TABLET PO ONE (06:00)
[2020-12-24 09:45] VITALS: BP 110/66; PULSE 94; TEMP 96.9
[2020-12-24] MEDS: PRENATAL VITAMINS W/ FOLIC ACID TABLET (FP) PO SCH (11:55)
[2020-12-24] MEDS: RALTEGRAVIR POTASSIUM 400 MG TAB PO SCH (11:55)
[2020-12-24] MEDS: TENOFOVIR DISOPROXIL FUMARATE 300 MG TABLET PO SCH (11:55)
[2020-12-24 15:20] LABS: URINE APPEARANCE CLEAR; URINE BILIRUBIN NEGATIVE (NEGATIVE); URINE COLOR YELLOW; URINE GLUCOSE (UA) NEGATIVE (NEGATIVE); URINE KETONE NEGATIVE (NEGATIVE); URINE LEUK ESTERASE NEGATIVE (NEGATIVE); URINE NITRITE NEGATIVE (NEGATIVE); URINE PROTEIN NEGATIVE (NEGATIVE); URINE UROBILINOGEN 0.2 mg/dL (0.2-1.0)
== END 2020-12-24 12:16 | disposition other institution (70) | DRG 773 ==
LOC: YASAS 13:26 → Y3N 12-21 12:29
PROVIDERS: ADMIT Allergy & Immunology; ATTEND Allergy & Immunology
PROC: HZ2ZZZZ Detoxification Services for Substance Abuse Treatment (ICD-10-PCS; principal; 2020-12-21)
DX: F10.230 Alcohol dependence with withdrawal, uncomplicated (principal); F11.20 Opioid dependence, uncomplicated; F14.20 Cocaine dependence, uncomplicated; F12.20 Cannabis dependence, uncomplicated; F17.210 Nicotine dependence, cigarettes, uncomplicated; F20.9 Schizophrenia, unspecified; E11.9 Type 2 diabetes mellitus without complications; R63.4 Abnormal weight loss; R36.9 Urethral discharge, unspecified; Z88.0 Allergy status to penicillin; Z91.011 Allergy to milk products; Z59.0 Homelessness
CPT/HCPCS: 36415; 80053; 81003; 85025; 85027; 86593; 86780; 87389; C9803; U0003; U0005

== ENCOUNTER 2020-12-24 12:28 | Inpatient (IN) | payer OTHER ==
[2020-12-24] MEDS ORDERED: MAGNESIUM CITRATE 300 ML BOTTLE PO PRN (15:25)
[2020-12-24] MEDS ORDERED: LOPERAMIDE HCL 2 MG CAPSULE PO PRN (15:25)
[2020-12-24] MEDS ORDERED: guaiFENesin 200 MG/10 ML 10 ML UNIT-DOSE CUPS PO PRN (15:25)
[2020-12-24] MEDS ORDERED: hydrOXYzine PAMOATE 25 MG CAPSULE (FP) PO PRN (15:25)
[2020-12-24] MEDS ORDERED: IBUPROFEN 400 MG TABLET (FP) PO PRN (15:25)
[2020-12-24] MEDS ORDERED: MENTHOL/PHENOL 1 EACH UD MM PRN (15:25)
[2020-12-24] MEDS ORDERED: P-EPHED 60MG/TRIPROLIDI 2.5MG TABLET PO PRN (15:25)
[2020-12-24] MEDS ORDERED: MAG HYDROX/AL HYDROX/SIMETH 30 ML UNIT-DOSE CUP PO PRN (15:25)
[2020-12-24] MEDS ORDERED: NICOTINE 10 MG CARTRIDGE (INHALER) IH PRN (15:25)
[2020-12-24] MEDS ORDERED: MAGNESIUM HYDROX 2400MG/30ML ORAL SUSPENSION 30 ML CUP PO PRN (15:25)
[2020-12-24] MEDS ORDERED: ACETAMINOPHEN 325 MG TABLET (FP) PO PRN (15:25)
[2020-12-24] MEDS ORDERED: MELATONIN 5 MG TABLETS PO SCH (22:00)
[2020-12-24] MEDS ORDERED: THIAMINE HCL 100 MG TABLET (FP) PO SCH (22:00)
[2020-12-24] MEDS: RALTEGRAVIR POTASSIUM 400 MG TAB PO SCH (22:21)
[2020-12-25 06:56] VITALS: BP 108/69; PULSE 98; TEMP 97.3
[2020-12-25] MEDS ORDERED: PT OWN MED DRAWER 7, Y5N ONE (08:26)
[2020-12-25] MEDS: RALTEGRAVIR POTASSIUM 400 MG TAB PO SCH (09:17)
[2020-12-25] MEDS ORDERED: NICOTINE 7 MG/24 HOURS TOPICAL PATCH TD SCH (10:00)
[2020-12-25] MEDS ORDERED: TENOFOVIR DISOPROXIL FUMARATE 300 MG TABLET PO SCH (10:00)
[2020-12-25] MEDS ORDERED: PRENATAL VITAMINS W/ FOLIC ACID TABLET (FP) PO SCH (10:00)
== END 2020-12-25 09:26 | disposition left against medical advice (07) | DRG 770 ==
LOC: YASAS 12:28 → Y5N 12:29
PROVIDERS: ADMIT Allergy & Immunology; ATTEND Allergy & Immunology
PROC: HZ42ZZZ Group Counseling for Substance Abuse Treatment, Cognitive-Behavioral (ICD-10-PCS; principal; 2020-12-24)
DX: F11.20 Opioid dependence, uncomplicated (principal); F10.20 Alcohol dependence, uncomplicated; F14.20 Cocaine dependence, uncomplicated; F12.20 Cannabis dependence, uncomplicated; F17.210 Nicotine dependence, cigarettes, uncomplicated; F19.280 Other psychoactive substance dependence with psychoactive substance-induced anxiety disorder; F20.9 Schizophrenia, unspecified; F31.9 Bipolar disorder, unspecified; D64.9 Anemia, unspecified; E11.9 Type 2 diabetes mellitus without complications; N40.0 Benign prostatic hyperplasia without lower urinary tract symptoms; R63.4 Abnormal weight loss; Z68.1 Body mass index [BMI] 19.9 or less, adult; Z88.0 Allergy status to penicillin; Z91.011 Allergy to milk products

== ENCOUNTER 2021-01-12 10:26 | Inpatient (IN) | payer OTHER ==
[2021-01-12 12:16] VITALS: BMI 17.7
[2021-01-12] MEDS ORDERED: ACETAMINOPHEN 325 MG TABLET (FP) PO PRN ×2 (13:56)
[2021-01-12] MEDS ORDERED: MAG HYDROX/AL HYDROX/SIMETH 30 ML UNIT-DOSE CUP PO PRN (13:56)
[2021-01-12] MEDS ORDERED: MAGNESIUM HYDROX 2400MG/30ML ORAL SUSPENSION 30 ML CUP PO PRN (13:56)
[2021-01-12] MEDS ORDERED: ONDANSETRON *ODT* 4 MG TABLET SL PRN (13:56)
[2021-01-12] MEDS ORDERED: BISMUTH SUBSALICYLATE 524 MG/30 ML PO PRN (13:56)
[2021-01-12] MEDS ORDERED: diazePAM 5 MG TABLET PO PRN (13:56)
[2021-01-12] MEDS ORDERED: IBUPROFEN 400 MG TABLET (FP) PO PRN (13:56)
[2021-01-12] MEDS ORDERED: MAGNESIUM CITRATE 300 ML BOTTLE PO PRN (13:56)
[2021-01-12] MEDS ORDERED: MENTHOL/PHENOL 1 EACH UD MM PRN (13:56)
[2021-01-12] MEDS ORDERED: METHOCARBAMOL 500 MG TABLET PO PRN (13:56)
[2021-01-12] MEDS: hydrOXYzine PAMOATE 25 MG CAPSULE (FP) PO SCH ×2 (15:31→23:03)
[2021-01-12] MEDS: diazePAM 5 MG TABLET PO SCH ×2 (17:30→23:03)
[2021-01-12] MEDS: MELATONIN 5 MG TABLETS PO SCH (23:03)
[2021-01-12] MEDS: THIAMINE HCL 100 MG TABLET (FP) PO SCH (23:03)
[2021-01-13] MEDS: hydrOXYzine PAMOATE 25 MG CAPSULE (FP) PO SCH ×5 (05:52→22:36)
[2021-01-13] MEDS: diazePAM 5 MG TABLET PO SCH ×4 (05:52→22:36)
[2021-01-13 10:25] LABS: HEMATOCRIT 35.4 % (35.4-49); HEMOGLOBIN 11.8 GM/dL (11.7-16.9); MCH 30.2 pg (25.7-33.7); MCHC 33.3 g/dl (32.0-35.9); MEAN CELL VOLUME 90.6 fl (80-96); MEAN PLT VOLUME 7.3 fl (7.5-11.1); PLATELET COUNT 367 10^3/uL (134-434); RBC 3.91 M/mm3 (4.00-5.60); RDW 16.7 % (11.9-15.9); WHITE BLOOD COUNT 4.6 K/mm3 (4.0-10.0)
[2021-01-13] MEDS: PRENATAL VITAMINS W/ FOLIC ACID TABLET (FP) PO SCH (10:31)
[2021-01-13 10:33] LABS: ALBUMIN 2.9 g/dl (3.4-5.0)
[2021-01-13 10:34] LABS: BLOOD UREA NITROGEN 12.7 mg/dL (7-18)
[2021-01-13 10:36] LABS: CREATININE 0.9 mg/dL (0.55-1.3)
[2021-01-13 10:37] LABS: BILIRUBIN,TOTAL 0.3 mg/dL (0.2-1); TOT PROT 6.6 g/dl (6.4-8.2)
[2021-01-13 15:18] LABS: HIV INTERPRETATION NEGATIVE (NEGATIVE)
[2021-01-13] MEDS: MELATONIN 5 MG TABLETS PO SCH (22:36)
[2021-01-13] MEDS: THIAMINE HCL 100 MG TABLET (FP) PO SCH (22:36)
[2021-01-14] MEDS: hydrOXYzine PAMOATE 25 MG CAPSULE (FP) PO SCH ×5 (05:29→22:43)
[2021-01-14] MEDS: diazePAM 5 MG TABLET PO SCH ×3 (05:29→22:43)
[2021-01-14] MEDS: PRENATAL VITAMINS W/ FOLIC ACID TABLET (FP) PO SCH (10:42)
[2021-01-14] MEDS: MELATONIN 5 MG TABLETS PO SCH (22:41)
[2021-01-14] MEDS: THIAMINE HCL 100 MG TABLET (FP) PO SCH (22:43)
[2021-01-15] MEDS: diazePAM 5 MG TABLET PO SCH ×2 (05:28→17:58)
[2021-01-15] MEDS: hydrOXYzine PAMOATE 25 MG CAPSULE (FP) PO SCH ×5 (05:28→22:45)
[2021-01-15] MEDS: PRENATAL VITAMINS W/ FOLIC ACID TABLET (FP) PO SCH (10:37)
[2021-01-15] MEDS: THIAMINE HCL 100 MG TABLET (FP) PO SCH (22:45)
[2021-01-15] MEDS: MELATONIN 5 MG TABLETS PO SCH (22:45)
[2021-01-16] MEDS: hydrOXYzine PAMOATE 25 MG CAPSULE (FP) PO SCH ×4 (05:45→17:45)
[2021-01-16] MEDS ORDERED: diazePAM 5 MG TABLET PO ONE (06:00)
[2021-01-16 09:10] VITALS: TEMP 96.8
[2021-01-16] MEDS: PRENATAL VITAMINS W/ FOLIC ACID TABLET (FP) PO SCH (10:17)
[2021-01-16 17:24] VITALS: BP 104/61; PULSE 83
== END 2021-01-16 21:33 | disposition other institution (70) | DRG 774 ==
LOC: YASAS 10:26 → Y3N 14:12
PROVIDERS: ADMIT Allergy & Immunology; ATTEND Allergy & Immunology
PROC: HZ2ZZZZ Detoxification Services for Substance Abuse Treatment (ICD-10-PCS; principal; 2021-01-12)
DX: F10.230 Alcohol dependence with withdrawal, uncomplicated (principal); F14.20 Cocaine dependence, uncomplicated; F12.20 Cannabis dependence, uncomplicated; F17.210 Nicotine dependence, cigarettes, uncomplicated; F20.9 Schizophrenia, unspecified; R63.4 Abnormal weight loss; Z68.1 Body mass index [BMI] 19.9 or less, adult; Z87.81 Personal history of (healed) traumatic fracture; Z88.0 Allergy status to penicillin; Z91.011 Allergy to milk products
CPT/HCPCS: 36415; 80053; 85027; 86593; 86780; 87389; C9803; U0003; U0005

== ENCOUNTER 2021-01-16 21:19 | Inpatient (IN) | payer OTHER ==
[2021-01-17] MEDS ORDERED: MENTHOL/PHENOL 1 EACH UD MM PRN (01:13)
[2021-01-17] MEDS ORDERED: MAGNESIUM CITRATE 300 ML BOTTLE PO PRN (01:13)
[2021-01-17] MEDS ORDERED: MAGNESIUM HYDROX 2400MG/30ML ORAL SUSPENSION 30 ML CUP PO PRN (01:13)
[2021-01-17] MEDS ORDERED: guaiFENesin 200 MG/10 ML 10 ML UNIT-DOSE CUPS PO PRN (01:13)
[2021-01-17] MEDS ORDERED: IBUPROFEN 400 MG TABLET (FP) PO PRN (01:13)
[2021-01-17] MEDS ORDERED: P-EPHED 60MG/TRIPROLIDI 2.5MG TABLET PO PRN (01:13)
[2021-01-17] MEDS ORDERED: NICOTINE 10 MG CARTRIDGE (INHALER) IH PRN (01:13)
[2021-01-17] MEDS ORDERED: MAG HYDROX/AL HYDROX/SIMETH 30 ML UNIT-DOSE CUP PO PRN (01:13)
[2021-01-17] MEDS ORDERED: LOPERAMIDE HCL 2 MG CAPSULE PO PRN (01:13)
[2021-01-17] MEDS ORDERED: ACETAMINOPHEN 325 MG TABLET (FP) PO PRN (01:13)
[2021-01-17 06:41] VITALS: BP 104/70; PULSE 81; TEMP 97.3
[2021-01-17] MEDS ORDERED: PRENATAL VITAMINS W/ FOLIC ACID TABLET (FP) PO SCH (10:00)
[2021-01-17] MEDS ORDERED: NICOTINE 14 MG/24 HOURS TOPICAL PATCH TD SCH (10:00)
[2021-01-17] MEDS ORDERED: MELATONIN 5 MG TABLETS PO SCH (22:00)
[2021-01-17] MEDS ORDERED: THIAMINE HCL 100 MG TABLET (FP) PO SCH (22:00)
== END 2021-01-17 14:27 | disposition left against medical advice (07) | DRG 770 ==
LOC: YASAS 21:19 → Y3E 21:20
PROVIDERS: ADMIT Allergy & Immunology; ATTEND Allergy & Immunology
PROC: HZ42ZZZ Group Counseling for Substance Abuse Treatment, Cognitive-Behavioral (ICD-10-PCS; principal; 2021-01-16)
DX: F10.20 Alcohol dependence, uncomplicated (principal); F14.20 Cocaine dependence, uncomplicated; F12.20 Cannabis dependence, uncomplicated; F17.210 Nicotine dependence, cigarettes, uncomplicated; Z59.00 Homelessness unspecified

== ENCOUNTER 2022-08-14 15:44 | Inpatient (IN) | payer OTHER ==
[2022-08-14 16:40] VITALS: BMI 17.7
[2022-08-15] MEDS ORDERED: MAGNESIUM HYDROX 2400MG/30ML ORAL SUSPENSION 30 ML CUP PO PRN (01:09)
[2022-08-15] MEDS ORDERED: MAG HYDROX/AL HYDROX/SIMETH 30 ML UNIT-DOSE CUP PO PRN (01:09)
[2022-08-15] MEDS ORDERED: POLYETHYLENE GLYCOL (HEALTHYLAX) 3350 17 GM PACKET PO PRN (01:09)
[2022-08-15] MEDS ORDERED: COLLOIDAL OATMEAL 1 BAR EACH TP PRN (01:09)
[2022-08-15] MEDS ORDERED: IBUPROFEN 400 MG TABLET (FP) PO PRN (01:09)
[2022-08-15] MEDS ORDERED: AMMONIUM LACTATE 12% LOTION 225 GM BOTTLE TP PRN (01:09)
[2022-08-15] MEDS ORDERED: LOPERAMIDE HCL 2 MG CAPSULE PO PRN (01:09)
[2022-08-15] MEDS ORDERED: IBUPROFEN 600 MG TABLET (FP) PO PRN (01:09)
[2022-08-15] MEDS ORDERED: TUBERCULIN PPD 5 TU/0.1ML SYRINGE (IN PATIENT USE ONLY) ID ONE ×2 (01:09→02:00)
[2022-08-15] MEDS ORDERED: NALOXONE HCL (KLOXXADO) 8 MG SPRAY NS PRN (01:09)
[2022-08-15] MEDS ORDERED: ACETAMINOPHEN 325 MG TABLET (FP) PO PRN (01:09)
[2022-08-15] MEDS ORDERED: guaiFENesin 600 MG TABLET.ER (FP) PO PRN (01:09)
[2022-08-15] MEDS ORDERED: NALOXONE HCL 0.4 MG/ML VIAL IM PRN (01:09)
[2022-08-15] MEDS ORDERED: hydrOXYzine PAMOATE 25 MG CAPSULE (FP) PO PRN (01:09)
[2022-08-15] MEDS ORDERED: BENZONATATE 200 MG CAPSULE PO PRN (01:09)
[2022-08-15] MEDS ORDERED: BENZOCAINE/MENTHOL (CHLORASEPTIC ) LOZENGE MM PRN (01:09)
[2022-08-15] MEDS ORDERED: TUBERCULIN PPD 5 TU/0.1ML VIAL ID ONE ×2 (05:46→06:51)
[2022-08-15] MEDS ORDERED: ONDANSETRON 8 MG TABLET (FP) PO PRN (09:23)
[2022-08-15] MEDS: PRENATAL VITAMINS W/ FOLIC ACID TABLET (FP) PO SCH (10:44)
[2022-08-15] MEDS: MELATONIN 5 MG TABLETS PO SCH (21:37)
[2022-08-15] MEDS: THIAMINE HCL 100 MG TABLET (FP) PO SCH (21:37)
[2022-08-16 09:56] LABS: POTASSIUM 4.4 mmol/L (3.5-5.1)
[2022-08-16 10:04] LABS: HEMATOCRIT 34.5 % (35.4-49); HEMOGLOBIN 11.7 GM/dL (11.7-16.9); MCH 28.8 pg (25.7-33.7); MEAN CELL VOLUME 84.8 fl (80-96); MEAN PLT VOLUME 6.9 fl (7.5-11.1); PLATELET COUNT 418 10^3/uL (134-434); RBC 4.07 M/mm3 (4.00-5.60); RDW 16.2 % (11.9-15.9); WHITE BLOOD COUNT 6.2 K/mm3 (4.0-10.0)
[2022-08-16 10:05] LABS: ALBUMIN 3.6 g/dl (3.4-5.0); CALCIUM 9.1 mg/dL (8.5-10.1)
[2022-08-16 10:06] LABS: BLOOD UREA NITROGEN 13.2 mg/dL (7-18)
[2022-08-16 10:08] LABS: CREATININE 0.9 mg/dL (0.55-1.3)
[2022-08-16 10:10] LABS: BILIRUBIN,TOTAL 0.8 mg/dL (0.2-1); TOT PROT 7.8 g/dl (6.4-8.2)
[2022-08-16] MEDS: PRENATAL VITAMINS W/ FOLIC ACID TABLET (FP) PO SCH (11:44)
[2022-08-16 12:06] LABS: SYPHILIS W/ RPR CONF REACTIVE (NONREACTIVE)
[2022-08-16] MEDS: THIAMINE HCL 100 MG TABLET (FP) PO SCH (21:48)
[2022-08-16] MEDS: MELATONIN 5 MG TABLETS PO SCH (21:48)
[2022-08-17] MEDS ORDERED: ONDANSETRON *ODT* 4 MG TABLET SL PRN (09:34)
[2022-08-17] MEDS: PRENATAL VITAMINS W/ FOLIC ACID TABLET (FP) PO SCH (10:58)
[2022-08-17] MEDS ORDERED: BISMUTH SUBSALICYLATE 524 MG/30 ML PO PRN (13:21)
[2022-08-17] MEDS: THIAMINE HCL 100 MG TABLET (FP) PO SCH (23:03)
[2022-08-17] MEDS: MELATONIN 5 MG TABLETS PO SCH (23:03)
[2022-08-18 06:59] VITALS: BP 130/94; PULSE 102; RESP 17; TEMP 98
[2022-08-18] MEDS ORDERED: TAMSULOSIN HCL 0.4 MG CAP PO SCH (08:30)
== END 2022-08-18 09:37 | disposition left against medical advice (07) | DRG 770 ==
LOC: YASAS 15:44 → Y3W 08-15 01:31
PROVIDERS: ADMIT Allergy & Immunology; ATTEND Psychiatry & Neurology Pain Medicine
PROC: HZ42ZZZ Group Counseling for Substance Abuse Treatment, Cognitive-Behavioral (ICD-10-PCS; principal; 2022-08-15)
DX: F11.20 Opioid dependence, uncomplicated (principal); F10.20 Alcohol dependence, uncomplicated; F14.20 Cocaine dependence, uncomplicated; F12.20 Cannabis dependence, uncomplicated; F20.9 Schizophrenia, unspecified; F32.A Depression, unspecified; G47.00 Insomnia, unspecified; N40.0 Benign prostatic hyperplasia without lower urinary tract symptoms; R76.8 Other specified abnormal immunological findings in serum; Z96.641 Presence of right artificial hip joint; R19.7 Diarrhea, unspecified; R63.4 Abnormal weight loss; Z68.1 Body mass index [BMI] 19.9 or less, adult; Z87.891 Personal history of nicotine dependence; Z28.310 Unvaccinated for COVID-19; Z28.9 Immunization not carried out for unspecified reason; Z91.011 Allergy to milk products; Z88.0 Allergy status to penicillin
CPT/HCPCS: 36415; 72170-TC-FY; 73502-TC-RT-FY; 73552-TC-RT-FY; 80053; 85027; 86593; 86780; 86803; 93005; 93010; C9803-CS; U0003; U0005